=== PATIENT | male | born 1965 | race Caucasian/White ===

== ENCOUNTER 2018-08-09 11:56 | Inpatient (IN) ==
[2018-08-09 15:42] LABS: Baso # (Auto) 0.1 th/mm3 (0.0-0.2); Baso % (Auto) 0.5 % (0.0-2.0); Eos # (Auto) 0.1 th/mm3 (0.0-0.4); Eos % (Auto) 0.5 % (0.0-4.0); Hematocrit 45.6 % (39.0-51.0); Hemoglobin 15.3 gm/dL (13.0-17.0); Lymph # (Auto) 2.2 th/mm3 (1.0-4.8); Lymph % (Auto) 16.8 % (9.0-44.0); Mean Corpuscular HGB Conc 33.5 % (32.0-36.0); Mean Corpuscular Hemoglobin 30.8 pg (27.0-34.0); Mean Corpuscular Volume 91.9 fL (80.0-100.0); Mean Platelet Volume 10.6 fL (7.0-11.0); Mono # (Auto) 0.8 th/mm3 (0.0-0.9); Neut # (Auto) 9.9 th/mm3 (1.8-7.7); Neut % (Auto) 76.2 % (16.0-70.0); Platelet Count 154 th/mm3 (150-450); Red Blood Count 4.97 mil/mm3 (4.50-5.90); Red Cell Distribution Width 13.7 % (11.6-17.2); White Blood Count 13.1 th/mm3 (4.0-11.0)
--- NOTE | 2018-08-09 15:54 | US ---
EXAM DATE: 08/09/2018 3:44 PM EST AGE/SEX: 53 years / Male INDICATIONS: Right leg cellulitis. CLINICAL DATA: This is the patient's initial encounter. Patient reports that signs and symptoms have been present for 2 months and indicates a pain score of 3/10. MEDICAL/SURGICAL HISTORY: . Right leg cellulitis. None. COMPARISON: No prior exams available for comparison. TECHNIQUE: Venous ultrasound of both lower extremities was performed from the inguinal ligament to t he proximal calf. Real-time, color Doppler and spectral tracing, compression and augmentation techni ques were used. FINDINGS: Normal compression of the deep venous system from the inguinal region to the proximal calf . No echogenic clot is seen. Normal response of the venous system to augmentation and respiration. CONCLUSION: 1. No DVT identified. Electronically signed by: Moises Tobar MD 08/09/2018 3:53 PM EST
--- NOTE | 2018-08-09 16:00 | ED ---
HPI General Chief complaint: Skin/Abscess/Foreign Body Stated complaint: Abcess/Genital Complaint Time Seen by Provider: 08/09/18 15:07 Source: patient and family Mode of arrival: ambulatory Limitations: no limitations History of Present Illness HPI narrative: 53-year-old male presents to the ED for evaluation of possible bilateral foot infection. Patient reports that he has been having symptoms and swelling especially on his right leg for the past 2-3 months. Per patient is started on June when he had a blister on the tip of his right great toe. Per patient he himself burst open and took off his nail as he was having some discomfort in the area. Ever since is been having swelling and pain. Per patient his swelling has progressively gotten worse and now he has it on his left foot as well. Palpation of the right foot is the worst. He has had 8 out of 10 pain on the right foot compared to the left. Denies any urinary or bowel movement issues. Per patient he does not follow with any doctors and states to me that he has not seen a doctor for almost 25 years. Denies any fevers chills or sweats. Denies any trauma. Denies any diabetes. No other medical issues at this time. Related Data Home Medications Medication Instructions Recorded Confirmed No Known Home Medications 08/09/18 08/09/18 Allergies Allergy/AdvReac Type Severity Reaction Status Date / Time No Known Allergies Allergy Verified 08/09/18 15:47 Review of Systems ROS: all other systems reviewed are negative [facility] Social History Social History Substance History: Active Abuse Second Hand Smoke Exposure: No Smoking Status: Never smoker How Often Do You Have a Drink Containing Alcohol: Monthly or less Recent Travel in [facility] within the Last 8 Weeks: No Recent Out of Country Travel within the Last 8 Weeks: No Substance Abuse Detail Marijuana: Substance Use Status: Active Route Used Substance Abuse: Inhalation Substance Frequency: last use a few days ago Reason for Use: Get High Immunization History Tetanus Immunization: >5 Years Exam Narrative Exam Narrative: GENERAL: Well appearing but morbedly obese SKIN: Focused skin assessment warm/dry. HEAD: Atraumatic. Normocephalic. EYES: Pupils equal and round. No scleral icterus. No injection or drainage. ENT: No nasal bleeding or discharge. Mucous membranes pink and moist. Tongue is midline. No Uvula deviation. NECK: Trachea midline. No JVD. CARDIOVASCULAR: Regular rate and rhythm. No murmur appreciated. RESPIRATORY: No accessory muscle use. Clear to auscultation. Breath sounds equal bilaterally. GASTROINTESTINAL: Abdomen soft, non-tender, nondistended. Hepatic and splenic margins not palpable. MUSCULOSKELETAL: No obvious deformities. No clubbing. No cyanosis. No edema. Full range of motion of the upper and lower extremities bilaterally. 2+ pulses bilaterally. Patient does have 1+ pitting edema on the right leg compared to the left. Patient does have erythema and warmness to the touch on the dorsal aspect and anterior aspect of the right leg as well as the left leg. More noticeable in the right leg. With most of the right foot being swollen. Patient does have what appears to be ulcer of the distal aspect of the right great toe. No obvious discharge from this area but patient does have blisterlike lesions with purulence on the anterior aspect of the right tibia and fibula. Multiple wounds with drainage from serosanguineous fluid to pus. Total area is about 20 cm in length. Patient has similar blisterlike purulent lesions on the left anterior tibia and fibula but not as impressive as on the right side. NEUROLOGICAL: Awake and alert. No obvious cranial nerve deficits. Motor grossly within normal limits. Normal speech. PSYCHIATRIC: Appropriate mood and affect; insight and judgment normal. Course Initial Documented Vital Signs Temperature 98.2 F 08/09/18 12:10 Pulse Rate 141 H 08/09/18 12:10 Respiratory Rate 20 08/09/18 12:10 Blood Pressure 179/111 H 08/09/18 12:10 Pulse Oximetry 95 08/09/18 12:10 Last Documented Vital Signs Temperature 98.2 F 08/09/18 12:10 Pulse Rate 138 H 08/09/18 18:33 Respiratory Rate 20 08/09/18 18:33 Blood Pressure 163/103 H 08/09/18 18:33 Pulse Oximetry 96 08/09/18 18:33 Medical Decision Making MICAELA Attestation MICAELA supervised visit: Yes Attestation: I, Dr. Mckay, have reviewed the advance practice practitioner's documentation and am in agreement, met with the patient face to face, made the diagnosis, and the medical decision making was done by me. *My assessment and Findings: Bilateral lower extremity cellulitis MDM Narrative Medical decision making narrative: 53-year-old male that presents to the ED for evaluation of infection to his right foot. Patient was properly examined and was found to have signs and symptoms very concerning for significant infection. Labs and imaging were ordered. Labs and imaging showed elevated WBCs. Case discussed with my attending Dr Mckay who evaluated the patient with myself and agrees with admission plan. Discussed case with [facility] Doctor who agrees to admission. Medical Screen Exam Complete: Yes Emergency Medical Condition: Yes Differential Diagnosis Differential Diagnosis: Cellulitis versus abscess versus sepsis Medical Records Medical records reviewed: Yes I reviewed the patient's medical records. Lab Data Lab results reviewed: Yes I reviewed the patient's lab results. Result diagrams: 08/09/18 15:30 08/09/18 15:30 Lab Results 08/09/18 08/09/18 08/09/18 Range/Units 15:30 15:30 15:30 WBC 13.1 H (4.0-11.0) th/mm3 RBC 4.97 (4.50-5.90) mil/mm3 Hgb 15.3 (13.0-17.0) gm/dL Hct 45.6 (39.0-51.0) % MCV 91.9 (80.0-100.0) fL MCH 30.8 (27.0-34.0) pg MCHC 33.5 (32.0-36.0) % RDW 13.7 (11.6-17.2) % Plt Count 154 (150-450) th/mm3 MPV 10.6 (7.0-11.0) fL Neut % (Auto) 76.2 H (16.0-70.0) % Lymph % (Auto) 16.8 (9.0-44.0) % [place] % (Auto) 6.0 (0.0-8.0) % Eos % (Auto) 0.5 (0.0-4.0) % Baso % (Auto) 0.5 (0.0-2.0) % Neut # (Auto) 9.9 H (1.8-7.7) th/mm3 Lymph # (Auto) 2.2 (1.0-4.8) th/mm3 [place] # (Auto) 0.8 (0.0-0.9) th/mm3 Eos # (Auto) 0.1 (0.0-0.4) th/mm3 Baso # (Auto) 0.1 (0.0-0.2) th/mm3 WBC Differential . Differential Comment Auto diff final Sodium 140 (136-145) meq/L Potassium 4.1 (3.5-5.1) meq/L Chloride 107 (98-107) meq/L Carbon Dioxide 25.6 (21.0-32.0) meq/L Anion Gap 7 (5-15) meq/L BUN 12 (7-18) mg/dL Creatinine 0.99 (0.60-1.30) mg/dL Estimated GFR 79 L (>89) mL/min Random Glucose 127 H (74-106) mg/dL Lactic Acid 1.8 (0.4-2.0) mmol/L Calcium 8.5 (8.5-10.1) mg/dL Total Bilirubin 1.1 H (0.2-1.0) mg/dL AST 28 (15-37) U/L ALT 28 (12-78) U/L Alkaline Phosphatase 83 (45-117) U/L Total Protein 7.2 (6.4-8.2) g/dL Albumin 3.4 (3.4-5.0) g/dL TSH 1.650 (0.358-3.740) uIU/mL 08/09/18 Range/Units 15:30 WBC (4.0-11.0) th/mm3 RBC (4.50-5.90) mil/mm3 Hgb (13.0-17.0) gm/dL Hct (39.0-51.0) % MCV (80.0-100.0) fL MCH (27.0-34.0) pg MCHC (32.0-36.0) % RDW (11.6-17.2) % Plt Count (150-450) th/mm3 MPV (7.0-11.0) fL Neut % (Auto) (16.0-70.0) % Lymph % (Auto) (9.0-44.0) % [place] % (Auto) (0.0-8.0) % Eos % (Auto) (0.0-4.0) % Baso % (Auto) (0.0-2.0) % Neut # (Auto) (1.8-7.7) th/mm3 Lymph # (Auto) (1.0-4.8) th/mm3 [place] # (Auto) (0.0-0.9) th/mm3 Eos # (Auto) (0.0-0.4) th/mm3 Baso # (Auto) (0.0-0.2) th/mm3 WBC Differential Differential Comment Sodium (136-145) meq/L Potassium (3.5-5.1) meq/L Chloride (98-107) meq/L Carbon Dioxide (21.0-32.0) meq/L Anion Gap (5-15) meq/L BUN (7-18) mg/dL Creatinine (0.60-1.30) mg/dL Estimated GFR (>89) mL/min Random Glucose (74-106) mg/dL Lactic Acid (0.4-2.0) mmol/L Calcium (8.5-10.1) mg/dL Total Bilirubin (0.2-1.0) mg/dL AST (15-37) U/L ALT (12-78) U/L Alkaline Phosphatase (45-117) U/L Total Protein (6.4-8.2) g/dL Albumin (3.4-5.0) g/dL TSH Cancelled (0.358-3.740) uIU/mL Imaging Data Attestation: I personally reviewed and interpreted this imaging study as follows : Radiologist's impression: Foot X-Ray 08/09/18 15:19 CONCLUSION: 1. Achilles and plantar calcaneal spurring. 2. No acute fracture or dislocation. 3. Mild arthritic changes involving the ankle and midfoot. Venous Doppler Study 08/09/18 15:20 CONCLUSION: 1. No DVT identified. Discharge Plan Discharge Disposition Patient Disposition: 30 Still Patient Discharge Details Diagnosis: Cellulitis Physicians Team ED Provider: Matt Mckay ED Midlevel Provider: Codey Montaño Primary Care Provider: Primary Care Adwoa Young Attending Provider: Krystian Chadwick Status ED Status: Admitted Observation Patient
[2018-08-09 16:06] LABS: Alkaline Phosphatase 83 U/L (45-117); Total Protein 7.2 g/dL (6.4-8.2)
[2018-08-09 16:13] LABS: Alanine Aminotransferase 28 U/L (12-78); Albumin 3.4 g/dL (3.4-5.0); Anion Gap 7 meq/L (5-15); Aspartate Aminotransferase 28 U/L (15-37); Blood Urea Nitrogen 12 mg/dL (7-18); Calcium 8.5 mg/dL (8.5-10.1); Carbon Dioxide 25.6 meq/L (21.0-32.0); Chloride 107 meq/L (98-107); Glomerular Filtration Rate 79 mL/min (>89); Glucose,Random 127 mg/dL (74-106); Potassium 4.1 meq/L (3.5-5.1); Sodium 140 meq/L (136-145)
--- NOTE | 2018-08-09 16:33 | XR ---
EXAM DATE: 08/09/2018 4:30 PM EST AGE/SEX: 53 years / Male INDICATIONS: Right foot pain and swelling. CLINICAL DATA: This is the patient's initial encounter. Patient reports that signs and symptoms have been present for 2 days and indicates a pain score of 10/10. MEDICAL/SURGICAL HISTORY: None. None. COMPARISON: No prior exams available for comparison. FINDINGS: Achilles and plantar calcaneal spurring are noted. There is no acute fracture or dislocation of the r ight foot. Mild arthritic changes are noted involving the ankle and midfoot. CONCLUSION: 1. Achilles and plantar calcaneal spurring. 2. No acute fracture or dislocation. 3. Mild arthritic changes involving the ankle and midfoot. Electronically signed by: Casey Bowser MD 08/09/2018 4:32 PM EST
[2018-08-09] MEDS ORDERED: Piperacil/Tazo 4.5 GM Premix 4.5 GM/100 ML BAG IV.SIG ONE (17:08)
[2018-08-09] MEDS ORDERED: Vancomycin Inj 1,000 MG in Sodium Chlor 0.9% Inj 250 ML IV.SIG ONE ×2 (17:08→22:00)
[2018-08-09] MEDS ORDERED: Bisacodyl 10 MG Supp RECTAL PRN (18:24)
[2018-08-09] MEDS ORDERED: Acetaminophen 325 MG Tablet PO PRN (18:24)
--- NOTE | 2018-08-09 18:33 | P.HPIM ---
History of Present Illness Primary Care Physician: No Primary Care Physician History of Present Illness: 53-yo m with no previous medical hx, has not had any doctor for ~25 years. He presented to ER with worsening swelling and redness of RLE. Reports he had a blister on the tip rt great toe a month ago which he lanced, and he removed the nail as well. since then he has been having pain and swelling of rt leg. He developed another blister on dorsum of rt foot which he lanced. 2 weeks ago he noted small pimple like lesions on his rt leg and these progressively increased to involve his thigh. His rt leg redness/swelling worsened. He denies fevers/chills. He took Cephalexin pills from his mother a few days ago but did not help. ROS significant for painless scrotal swelling which he says happened a few months back after falling off his bed. rest of ROS is negative. On presentation to ER, patient noted to be hypertensive, labs-mild leucocytosis 13, glucose mildly elevated. Xray rt foot unremarkable. dopplers negative for DVT. Patient received Vanc/Zosyn. Review of Systems Review of Systems: all other systems reviewed are negative [facility] Social History Social History Substance History: Active Abuse Second Hand Smoke Exposure: No Smoking Status: Never smoker How Often Do You Have a Drink Containing Alcohol: Monthly or less Recent Travel in [facility] within the Last 8 Weeks: No Recent Out of Country Travel within the Last 8 Weeks: No Substance Abuse Detail Marijuana: Substance Use Status: Active Route Used Substance Abuse: Inhalation Substance Frequency: last use a few days ago Reason for Use: Get High Immunization History Tetanus Immunization: >5 Years Medications and Allergies Allergies Allergy/AdvReac Type Severity Reaction Status Date / Time No Known Allergies Allergy Verified 08/09/18 15:47 Home Medications Medication Instructions Recorded Confirmed Type No Known Home Medications 08/09/18 08/09/18 History Active Medications: Active Medications Acetaminophen (Tylenol) 650 mg PO Q4H PRN PRN Reason: Temp > 100.4 Al Hydroxide/Mg Hydroxide (Milk Of Magnesia Liq) 30 ml PO Q12H PRN PRN Reason: Mild Constipation Bisacodyl (Dulcolax Supp) 10 mg RECTAL DAILY PRN PRN Reason: SEVERE CONSITIPATION Lactulose (Lactulose Liq) 30 ml PO DAILY PRN PRN Reason: SEVERE CONSITIPATION Ondansetron HCl (Zofran Inj) 4 mg IV.PUSH Q6H PRN PRN Reason: NAUSEA OR VOMITING Senna/Docusate Sodium (Magy-Colace) 1 tab PO BID VICKI Sennosides (Senokot) 17.2 mg PO Q12H PRN PRN Reason: Moderate Constipation Sodium Chloride (Ns Flush) 2 ml IV.FLUSH PRN PRN PRN Reason: FLUSH AFTER USING IV ACCESS Physical Exam Vital signs: Last Vital Signs Temp 98.2 F 08/09/18 12:10 Pulse 136 H 08/09/18 15:52 Resp 19 08/09/18 15:52 BP 192/107 H 08/09/18 15:52 Pulse Ox 95 08/09/18 15:52 Intake & Output 08/07/18 08/08/18 08/09/18 08/10/18 06:59 06:59 06:59 06:59 Intake Total 100 / 100 Balance 100 / 100 Weight 136.078 kg Narrative: GENERAL:obese middle aged man, in no acute distress. HEENT: not pale,anicteric CARDIOVASCULAR: Regular tachycardia,regular rhythm without murmurs, gallops, or rubs. RESPIRATORY: Clear to auscultation. Breath sounds equal bilaterally. No wheezes , rales, or rhonchi. GASTROINTESTINAL: Abdomen soft, non-tender, nondistended. Normal active bowel sounds GUN: swollen scrotum MUSCULOSKELETAL: RLE with 1 + edema, erythematous, ulcer at tip of rt hallux~ 2cm, with no discharge. Multiple discharging punctate wounds on his right dobbins and thigh. erythematous rt leg anteriorly. few punctate wounds on left leg. NEURO: Alert & Oriented x4 to person, place, time, situation. Moves all ext x4 Results Labs CBC & Chem 7: 08/09/18 15:30 08/09/18 15:30 Imaging Impressions Foot X-Ray 08/09/18 15:19 CONCLUSION: 1. Achilles and plantar calcaneal spurring. 2. No acute fracture or dislocation. 3. Mild arthritic changes involving the ankle and midfoot. Venous Doppler Study 08/09/18 15:20 CONCLUSION: 1. No DVT identified. Caprini VTE Risk Assessment Caprini VTE Risk Assessment: No/Low Risk (score <= 1) Caprini Risk Assessment Model: Point Value = 1 Point Value = 2 Point Value = 3 Point Value = 5 Age 41-60 Minor surgery BMI > 25 kg/m2 Swollen legs Varicose veins or History of unexplained or recurrent spontaneous Oral contraceptives or hormone replacement Sepsis (< 1 month) Serious lung disease, including pneumonia (< 1 month) Abnormal pulmonary function Acute myocardial infarction Congestive heart failure (< 1 month) History of inflammatory bowel disease Medical patient at bed rest Age 61-74 Arthroscopic surgery Major open surgery (> 45 min) Laparoscopic surgery (> 45 min) Malignancy Confined to bed (> 72 hours) Immobilizing plaster cast Central venous access Age >= 75 History of VTE Family history of VTE Factor V Leiden Prothrombin [id number] Lupus anticoagulant Anticardiolipin antibodies Elevated serum homocysteine Heparin-induced thrombocytopenia Other congenital or acquired thrombophilia Stroke (< 1 month) Elective arthroplasty Hip, pelvis, or leg fracture Acute spinal cord injury (< 1 month) Prophylaxis Regimen: Total Risk Factor Score Risk Level Prophylaxis Regimen 0-1 Low Early ambulation 2 Moderate Order ONE of the following: *Sequential Compression Device (SCD) *Heparin 5000 units SQ BID 3-4 Higher Order ONE of the following medications: *Heparin 5000 units SQ TID *Enoxaparin/Lovenox 40 mg SQ daily (WT < 150 kg, CrCl > 30 mL/min) *Enoxaparin/Lovenox 30 mg SQ daily (WT < 150 kg, CrCl > 10-29 mL/min) *Enoxaparin/Lovenox 30 mg SQ BID (WT < 150 kg, CrCl > 30 mL/min) AND/OR *Sequential Compression Device (SCD) 5 or more Highest Order ONE of the following medications: *Heparin 5000 units SQ TID (Preferred with Epidurals) *Enoxaparin/Lovenox 40 mg SQ daily (WT < 150 kg, CrCl > 30 mL/min) *Enoxaparin/Lovenox 30 mg SQ daily (WT < 150 kg, CrCl > 10-29 mL/min) *Enoxaparin/Lovenox 30 mg SQ BID (WT < 150 kg, CrCl > 30 mL/min) AND *Sequential Compression Device (SCD) Assessment and Plan Plan 53 yo m with no previous medical history who presented with swelling/redness of his right leg Cellulitis of right leg-- He received IV Vanc/Zosyn in ER, keep on IV Vanc only for now, can narrow down. follow up blood cultures. elevate RLE. HTN: seems like new onset, unclear how long he has been hypertensive. He is hypertensive/tachycardic start on HCTZ and Metoprolol check ECHO,TSH keep on cardiac diet. Mild hyperglycemia--pre diabetic range. check A1C. scrotal swelling--likely hydrocele. check scrotal ultrasound. dvt ppx--ambulate.
--- NOTE | 2018-08-09 20:20 | US ---
EXAM DATE: 08/09/2018 8:15 PM EST AGE/SEX: 53 years / Male INDICATIONS: Scrotal swelling. CLINICAL DATA: This is the patient's initial encounter. Patient reports that signs and symptoms have been present for 2 weeks and indicates a pain score of 0/10. MEDICAL/SURGICAL HISTORY: None. None. COMPARISON: No prior exams available for comparison. MEASUREMENTS: Right Testicle:__3.6 x 3.4 x 4.4 cm Left Testicle:__2.7 x 3.4 x 4.5 cm FINDINGS: RIGHT: Testicle: Homogeneous echotexture without intra or extratesticular mass. Blood flow is symmetric and within normal limits. Epididymis: Within normal limits. Hydrocele: Small hydrocele present. Varicocele: No evidence of varicocele. LEFT: Testicle: Homogeneous echotexture without intra or extratesticular mass. Blood flow is symmetric and within normal limits. Epididymis: Within normal limits. Hydrocele: Small hydrocele present. Varicocele: No evidence of varicocele. Scrotum: Diffuse thickening of scrotal skin. CONCLUSION: 1. Diffuse extensive scrotal wall thickening, likely infectious. 2. Normal-appearing testicles. 3. Small bilateral hydroceles Electronically signed by: Ko Nix MD 08/09/2018 8:19 PM EST
[2018-08-09] MEDS ORDERED: Metoprolol Tartrate 25 MG Tablet PO SCH (21:00)
[2018-08-09] MEDS ORDERED: Vancomycin Consult Pharmacy OTHER PRN ×2 (21:04→21:05)
[2018-08-09] MEDS: hydroCHLOROthiazide 25 MG Tablet PO SCH (22:05)
[2018-08-09] MEDS: Metoprolol Tartrate 25 MG Tablet PO SCH (22:06)
[2018-08-09] MEDS: Senna/Docusate Sodium 8.6/50 MG Tablet PO SCH (22:10)
[2018-08-10 06:29] LABS: Amphetamine Screen,Urine Neg (Neg); Barbiturate Screen,Urine Neg (Neg); Cannabinoid Screen,Urine Pos (Neg); Cocaine Screen,Urine Neg (Neg)
[2018-08-10 06:32] LABS: Opiate Screen,Urine Neg (Neg)
[2018-08-10] MEDS: Senna/Docusate Sodium 8.6/50 MG Tablet PO SCH ×2 (10:05→21:34)
[2018-08-10] MEDS: hydroCHLOROthiazide 25 MG Tablet PO SCH (10:05)
[2018-08-10] MEDS: Metoprolol Tartrate 25 MG Tablet PO SCH ×2 (10:06→21:31)
[2018-08-10] MEDS: Vancomycin Inj 1,500 MG in Sodium Chlor 0.9% Inj 500 ML IV.SIG SCH ×2 (11:05→21:33)
--- NOTE | 2018-08-10 11:12 | P.PN ---
Subjective Interval history: Follow up for sepsis with cellulitis. The patient reports slight improvement of his RLE cellulitis with decreased edema and weeping, however still very erythematous with scattered pustules. He has few pustules on the left anterior dobbins with surrounding erythema. He also reports continued diffuse scrotal edema and pain. He states he injured his scrotum a week ago and it has been swollen every since. He also reports dysuria, nocturia, and frequent urination with incomplete voiding. Denies any other medical complaints at this time. Physical Exam Vital signs: Vital Signs 08/09/18 12:10 08/09/18 14:53 08/09/18 15:50 Temperature 98.2 F Pulse Rate 141 H 138 H 136 H Respiratory Rate 20 16 Blood Pressure 179/111 H 164/124 H Pulse Oximetry 95 96 95 08/09/18 15:52 08/09/18 18:33 08/10/18 00:00 Temperature 98.6 F Pulse Rate 136 H 138 H 93 H Respiratory Rate 19 20 18 Blood Pressure 192/107 H 163/103 H 106/55 L Pulse Oximetry 95 96 93 L 08/10/18 03:52 08/10/18 08:00 Temperature 98.9 F 97.4 F L Pulse Rate 82 89 Respiratory Rate 19 Blood Pressure 159/92 H 114/77 Pulse Oximetry 96 98 Intake & Output 08/09/18 08/10/18 08/10/18 18:59 06:59 18:59 Intake Total 100 / 100 500 / 500 Balance 100 / 100 500 / 500 Weight 136.078 kg 140.614 kg Intake: IV 100 / 100 500 / 500 Zosyn 4.5 GM Premix 4.5 gm In 100 / 100 100 ml @ 200 mls/hr IV.SIG ONCE ONE Rx#:[id number] Vancomycin Inj 1,000 MG In NS 500 / 500 Inj 250 ML @ 250 mls/hr IV.SIG ONCE ONE Rx#:[id number] Other: Date of Last Bowel Movement 08/09/18 Weight On Admission 140.614 kg Narrative: GENERAL: Well-nourished, well-developed obese middle aged male patient in [facility]. SKIN: Warm and dry. See lower extremities below. HEENT: Normocephalic. Atraumatic. Pupils equal and round. Mucous membranes pink and moist. CARDIOVASCULAR: Regular rate and rhythm. No murmur appreciated. RESPIRATORY: No accessory muscle use. Clear to auscultation. Breath sounds equal bilaterally. GASTROINTESTINAL: Abdomen soft, non-tender, nondistended. Normoactive bowel sounds x4. GENITOURINARY: Diffusely edematous and mildly erythematous scrotum, no open wounds, tender to palpation. MUSCULOSKELETAL: No obvious deformities. RLE with diffuse erythema, 2+ edema, scattered pustules, some open and draining, with 3cm ulcer at right hallux and smaller 1cm ulcer at lateral 5th toe. NEUROLOGICAL: Awake and alert. No obvious cranial nerve deficits. Moving all extremities spontaneously. Normal speech. PSYCHIATRIC: Appropriate mood and affect; insight and judgment normal. Results - Labs CBC & Chem 7: 08/09/18 15:30 08/09/18 15:30 Laboratory Results - last 24 hr 08/09/18 08/09/18 08/09/18 15:30 15:30 15:30 WBC 13.1 H RBC 4.97 Hgb 15.3 Hct 45.6 MCV 91.9 MCH 30.8 MCHC 33.5 RDW 13.7 Plt Count 154 MPV 10.6 Neut % (Auto) 76.2 H Lymph % (Auto) 16.8 Harney % (Auto) 6.0 Eos % (Auto) 0.5 Baso % (Auto) 0.5 Neut # (Auto) 9.9 H Lymph # (Auto) 2.2 Harney # (Auto) 0.8 Eos # (Auto) 0.1 Baso # (Auto) 0.1 WBC Differential . Differential Comment Auto diff final Sodium 140 Potassium 4.1 Chloride 107 Carbon Dioxide 25.6 Anion Gap 7 BUN 12 Creatinine 0.99 Estimated GFR 79 L Random Glucose 127 H Lactic Acid 1.8 Calcium 8.5 Total Bilirubin 1.1 H AST 28 ALT 28 Alkaline Phosphatase 83 Total Protein 7.2 Albumin 3.4 TSH 1.650 Urine Opiates Screen Ur Barbiturates Screen Ur Amphetamines Screen U Benzodiazepines Scrn Urine Cocaine Screen U Cannabinoids Screen 08/09/18 08/10/18 15:30 06:00 WBC RBC Hgb Hct MCV MCH MCHC RDW Plt Count MPV Neut % (Auto) Lymph % (Auto) Harney % (Auto) Eos % (Auto) Baso % (Auto) Neut # (Auto) Lymph # (Auto) Harney # (Auto) Eos # (Auto) Baso # (Auto) WBC Differential Differential Comment Sodium Potassium Chloride Carbon Dioxide Anion Gap BUN Creatinine Estimated GFR Random Glucose Lactic Acid Calcium Total Bilirubin AST ALT Alkaline Phosphatase Total Protein Albumin TSH Cancelled Urine Opiates Screen Neg Ur Barbiturates Screen Neg Ur Amphetamines Screen Neg U Benzodiazepines Scrn Neg Urine Cocaine Screen Neg U Cannabinoids Screen Pos H Microbiology 08/09/18 15:30 Blood - Peripheral Aerobic Blood Culture - Preliminary No growth in 1 day 08/09/18 15:30 Blood - Peripheral Anaerobic Blood Culture - Preliminary No growth in 1 day 08/09/18 15:35 Blood - Peripheral Aerobic Blood Culture - Preliminary No growth in 1 day 08/09/18 15:35 Blood - Peripheral Anaerobic Blood Culture - Preliminary No growth in 1 day 08/09/18 15:30 Abscess - Leg Gram Stain - Final - Imaging Impressions Foot X-Ray 08/09/18 15:19 CONCLUSION: 1. Achilles and plantar calcaneal spurring. 2. No acute fracture or dislocation. 3. Mild arthritic changes involving the ankle and midfoot. Venous Doppler Study 08/09/18 15:20 CONCLUSION: 1. No DVT identified. Scrotum Ultrasound 08/09/18 17:20 CONCLUSION: 1. Diffuse extensive scrotal wall thickening, likely infectious. 2. Normal-appearing testicles. 3. Small bilateral hydroceles Assessment and Plan - Plan 53-year-old male with no significant past medical history although has not seen any physician in 25 years, presents with a 2-week history of right lower extremity blisters and cellulitis. 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 Sepsis with Bilateral lower extremity cellulitis and right hallux ulcer: Right worse than left. Meets sepsis criteria with leukocytosis WBC 13.1K, tachycardia HR 141, source-cellulitis. -Foot xray with no acute fracture/dislocation, mild arthritic changes of ankle/midfoot; Achilles and plantar calcaneal spurring -Doppler U/S negative for DVT -Wound culture collected, preliminary with staph aureus -Blood cultures with NGTD -Continue antibiotics with IV Vanco with pharmacy consult -Elevate lower extremities -Consult wound care Scrotal Edema, possible Cellulitis: acute, patient reports recent injury to scrotum with subsequent swelling/pain/dysuria. -Scrotum U/S with diffuse extensive scrotal wall thickening, likely infectious; normal testicles, small bilateral hydroceles -started on diuretic with HCTZ (also for BP control) -Already on IV vanco as above -Check urinalysis -Consult urology Hypertension: acute, no prior diagnosis of high blood pressure -started on HCTZ and metoprolol per admitting physician, will continue -clonidine prn -monitor BP, adjust antihypertensives as needed Elevated Blood Glucose: BG 127, unknown if fasting BG -check HgbA1c DVT Prophylaxis: Heparin sq Discharge Planning: Admit to inpatient. Likely needs additional 2-3 days fo IV antibiotics. Await urology consult.
--- NOTE | 2018-08-10 18:35 | ECHRPT ---
Indication: HTN heart disease CONCLUSIONS Normal left ventricular size. Mild concentric left ventricular hypertrophy. The left ventricular systolic function is severely reduced with an estimated ejection fraction in th e range of 25-30%. There is diffuse global hypokinesis with distinct regional wall motion abnormalities. There is akine sis of the inferior wall. The right ventricle is mildly dilated. The right ventricular systoilc function is mildly decreased. The left atrial size is jamv-yi-hkiayaqrwb dilated. Zbrm-ez-gjbovwla mitral valve regurgitation. Aortic valve sclerosis with calcification versus possible vegetation at the base of the left coronar y cusp the aortic valve. CHRISTIAN may be considered for further evaluation if clinically indicated. The estimated pulmonary arterial pressure is 30 mmHg. BP: / HR: Rhythm: MEASUREMENTS (Male / Female) Normal Values Technical Quality: 2D ECHO LV Diastolic Diameter PLAX 6.3 cm 4.2 - 5.9 / 3.9 - 5.3 cm LV Systolic Diameter PLAX 5.7 cm IVS Diastolic Thickness 0.8 cm 0.6 - 1.0 / 0.6 - 0.9 cm LVPW Diastolic Thickness 1.1 cm 0.6 - 1.0 / 0.6 - 0.9 cm LV Relative Wall Thickness 0.3 RV Internal Dim ED PLAX 3.8 cm LVOT Diameter 2.5 cm Aortic Root Diameter 3.1 cm LA Systolic Diameter LX 5.7 cm 3.0 - 4.0 / 2.7 - 3.8 cm LV Ejection Fraction MOD BP 39.1 % >= 55 % LV Ejection Fraction MOD 4C 47.1 % LV Ejection Fraction 4C AL 46.9 % LV Ejection Fraction MOD 2C 27.1 % LV Ejection Fraction 2C AL 26.0 % DOPPLER AV Peak Velocity 118.0 cm/s AV Peak Gradient 5.6 mmHg LVOT Peak Velocity 91.8 cm/s LVOT Peak Gradient 3.4 mmHg AV Area Cont Eq pk 3.7 cm Mitral E Point Velocity 114.0 cm/s LV E' Lateral Velocity 9.0 cm/s Mitral E to LV E' Lateral Ratio 12.7 LV E' Septal Velocity 4.6 cm/s Mitral E to LV E' Septal Ratio 24.9 TR Peak Velocity 222.0 cm/s TR Peak Gradient 19.7 mmHg Right Atrial Pressure 10.0 mmHg Pulmonary Artery Systolic Pressu 29.7 mmHg Right Ventricular Systolic Press 29.7 mmHg PV Peak Velocity 106.0 cm/s PV Peak Gradient 4.5 mmHg FINDINGS LEFT VENTRICLE Normal left ventricular size. Mild concentric left ventricular hypertrophy. The left ventricular systolic function is severely reduced with an estimated ejection fraction in th e range of 25-30%. There is diffuse global hypokinesis with distinct regional wall motion abnormalities. There is akine sis of the inferior wall. RIGHT VENTRICLE The right ventricle is mildly dilated. The right ventricular systoilc function is mildly decreased. LEFT ATRIUM The left atrial size is zrpi-zd-prphyglzsp dilated. RIGHT ATRIUM The right atrial size is normal. ATRIAL SEPTUM Normal atrial septal thickness without atrial level shunting by limited color doppler interrogation. AORTA The aortic root and proximal ascending aorta are normal in size on limited imaging. MITRAL VALVE Dixv-ku-cjilfzct mitral valve regurgitation. AORTIC VALVE Trileaflet aortic valve. No aortic valve stenosis. Mild aortic valve regurgitation. Aortic valve sclerosis with calcification versus possible vegetation at the base of the left coronar y cusp the aortic valve. TRICUSPID VALVE The estimated pulmonary arterial pressure is 30 mmHg. PULMONARY VALVE The pulmonary valve is not well visualized. VESSELS The inferior vena cava is dilated. There is greater than 50% respiratory change in dimension of the inferior vena cava (normal). PERICARDIUM No pericardial effusion. Dheeraj Mayberry (Electronically Signed) Final Date:10 August 2018 18:34
[2018-08-10 19:08] LABS: Bilirubin,Urine Negative (Negative); Clarity,Urine Hazy (Clear); Color,Urine Yellow (Yellw/Straw); Glucose,Urine (UA) Negative (Negative); Hyaline Casts,Urine 3 /lpf (0-3); Leukocyte Esterase,Urine Negative (Negative); Mucus,Urine Few /lpf (Occasional); Nitrite,Urine Negative (Negative); Specific Gravity,Urine 1.019 (1.002-1.035); Squamous Epithelial Cell,Urine <1 /hpf (0-5)
[2018-08-10] MEDS: Heparin - SQ 10,000 UNITS/ML Vial SQ SCH (21:32)
[2018-08-11] MEDS: Heparin - SQ 10,000 UNITS/ML Vial SQ SCH ×3 (06:04→22:10)
[2018-08-11] MEDS ORDERED: Furosemide 20 MG Tablet PO SCH (09:00)
--- NOTE | 2018-08-11 09:13 | P.CONCA ---
History of Present Illness Service: cardiology Consult date: 08/11/18 Reason for Consult: new CHF, EF 25%, CHRISTIAN requested Primary Care Provider: No Primary Care Physician Chief Complaint: R leg infection History of Present Illness: 53 yo morbidly obese WM with no prior cardiac history who presents with R leg swelling and skin infection x several weeks. 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 Over the course of several weeks his foot became increasingly irritated, swollen with blisters extending proximally up to his knee. In the ED he was found to have cellulitis and sepsis ; echocardiogram reveals reduced EF 25% with possible vegetation of aortic valve. We have been consulted to consider CHRISTIAN. Patient denies chest pain,sob or palpitations. BP elevated initially with SBP 179, which has improved with addition of lisinopril 5mg and metoprolol 25mg BID and lasix 20mg. Review of Systems All other systems reviewed negative except as stated in HPI PMFSH - History History Provided By: Patient - Tobacco History Second Hand Smoke Exposure: No Smoking Status: Never smoker - Alcohol History How Often Do You Have a Drink Containing Alcohol: Monthly or less - Substance Use History Substance History: Active Abuse - Substance Use Type Marijuana Status: Active Route Used: Inhalation Frequency: last use a few days ago Reason for Use: Get High - Travel History Recent Travel in the [place] Within the Last 8 Weeks: No Recent Travel Out of the Country Within the Last 8 Weeks: No - Immunization History Tetanus Immunization: >5 Years Medications and Allergies Active Medications: Active Medications Acetaminophen (Tylenol) 650 mg PO Q4H PRN PRN Reason: headache/fever/pain1-5 Hydrocodone Bitart/Acetaminophen ([place] 5/325) 1 tab PO Q6H PRN PRN Reason: pain 6 to 10 Al Hydroxide/Mg Hydroxide (Milk Of Magnesia Liq) 30 ml PO Q12H PRN PRN Reason: Mild Constipation Bisacodyl (Dulcolax Supp) 10 mg RECTAL DAILY PRN PRN Reason: SEVERE CONSITIPATION Clonidine HCl (Catapres) 0.1 mg PO Q6H PRN PRN Reason: HYPERTENSION Furosemide (Lasix) 20 mg PO BID@0900,1800 VICKI Heparin Sodium (Porcine) (Heparin Inj) 5,000 units SQ Q8HR [facility] Last Admin: 08/11/18 06:04 Dose: 5,000 units Vancomycin HCl 1,500 mg/ (Sodium Chloride) 515 mls @ 250 mls/hr IV.SIG Q12H [facility] Last Infusion: 08/10/18 23:40 Dose: Infused Lactulose (Lactulose Liq) 30 ml PO DAILY PRN PRN Reason: SEVERE CONSITIPATION Lisinopril (Prinivil) 5 mg PO DAILY [facility] Metoprolol Tartrate (Lopressor) 25 mg PO BID [facility] Last Admin: 08/10/18 21:31 Dose: 25 mg Miscellaneous Information ([facility] Ordered Lab Info) 0 each OTHER ONCE ONE Stop: 08/11/18 09:46 Ondansetron HCl (Zofran Inj) 4 mg IV.PUSH Q6H PRN PRN Reason: NAUSEA OR VOMITING Pharmacy Profile Note (Vancomycin Consult Pharmacy) 1 each OTHER UNSCH PRN PRN Reason: Pharmacy to dose Senna/Docusate Sodium (Magy-Colace) 1 tab PO BID [facility] Last Admin: 08/10/18 21:34 Dose: Not Given Sennosides (Senokot) 17.2 mg PO Q12H PRN PRN Reason: Moderate Constipation Sodium Chloride (Ns Flush) 2 ml IV.FLUSH PRN PRN PRN Reason: FLUSH AFTER USING IV ACCESS Allergies Allergy/AdvReac Type Severity Reaction Status Date / Time No Known Allergies Allergy Verified 08/09/18 15:47 Home Medications Medication Instructions Recorded Confirmed Type No Known Home Medications 08/09/18 08/09/18 History Exam Vital signs: Vital Signs 08/10/18 12:00 08/10/18 20:00 08/10/18 23:56 Temperature 97.9 F 97.5 F L Pulse Rate 105 H 102 H 110 H Respiratory Rate 18 20 20 Blood Pressure 128/88 113/69 93/58 L Pulse Oximetry 95 95 96 08/11/18 04:00 08/11/18 08:15 Temperature 98.7 F Pulse Rate 94 H 95 H Respiratory Rate 20 20 Blood Pressure 120/85 123/79 Pulse Oximetry 94 L 96 Intake & Output 08/10/18 08/11/18 08/11/18 18:59 06:59 18:59 Intake Total 515 / 515 515 / 515 Balance 515 / 515 515 / 515 Intake: IV 515 / 515 515 / 515 Vancomycin Inj 1,500 MG In NS 515 / 515 515 / 515 Inj 500 ML @ 250 mls/hr IV.SIG Q12H [facility] Rx#:[id number] Other: Date of Last Bowel Movement 08/10/18 Narrative: GENERAL: obese male SKIN: Warm and dry. HEAD: Normocephalic. EYES: No scleral icterus. No injection or drainage. NECK: Supple, trachea midline. No JVD or lymphadenopathy. CARDIOVASCULAR: Regular rate and rhythm without murmurs, gallops, or rubs. RESPIRATORY: Breath sounds equal bilaterally. No accessory muscle use. GASTROINTESTINAL: Abdomen soft, non-tender, nondistended. MUSCULOSKELETAL: R lower leg edematous with scattered erythematous pustules. . Results 08/09/18 15:30 08/09/18 15:30 Cardiac Enzymes 08/09/18 Range/Units 15:30 AST 28 (15-37) U/L CBC 08/09/18 Range/Units 15:30 WBC 13.1 H (4.0-11.0) th/mm3 RBC 4.97 (4.50-5.90) mil/mm3 Hgb 15.3 (13.0-17.0) gm/dL Hct 45.6 (39.0-51.0) % Plt Count 154 (150-450) th/mm3 Neut # (Auto) 9.9 H (1.8-7.7) th/mm3 Lymph # (Auto) 2.2 (1.0-4.8) th/mm3 Carter # (Auto) 0.8 (0.0-0.9) th/mm3 Eos # (Auto) 0.1 (0.0-0.4) th/mm3 Baso # (Auto) 0.1 (0.0-0.2) th/mm3 Comprehensive Metabolic Panel 08/09/18 Range/Units 15:30 Sodium 140 (136-145) meq/L Potassium 4.1 (3.5-5.1) meq/L Chloride 107 (98-107) meq/L Carbon Dioxide 25.6 (21.0-32.0) meq/L BUN 12 (7-18) mg/dL Creatinine 0.99 (0.60-1.30) mg/dL Calcium 8.5 (8.5-10.1) mg/dL AST 28 (15-37) U/L ALT 28 (12-78) U/L Alkaline Phosphatase 83 (45-117) U/L Total Protein 7.2 (6.4-8.2) g/dL Albumin 3.4 (3.4-5.0) g/dL Intake and Output 08/10/18 08/11/18 08/11/18 22:59 06:59 14:59 Intake Total 515 / 515 Balance 515 / 515 Intake: IV 515 / 515 Vancomycin Inj 1,500 MG In NS 515 / 515 Inj 500 ML @ 250 mls/hr IV.SIG Q12H [facility]ICK[facility] Rx#:[id number] Other: Date of Last Bowel Movement 08/10/18 - Imaging and Cardiology Imaging: Impressions Foot X-Ray 08/09/18 15:19 CONCLUSION: 1. Achilles and plantar calcaneal spurring. 2. No acute fracture or dislocation. 3. Mild arthritic changes involving the ankle and midfoot. Venous Doppler Study 08/09/18 15:20 CONCLUSION: 1. No DVT identified. Scrotum Ultrasound 08/09/18 17:20 CONCLUSION: 1. Diffuse extensive scrotal wall thickening, likely infectious. 2. Normal-appearing testicles. 3. 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 Over the course of several weeks his foot became increasingly irritated, swollen with blisters extending proximally up to his knee. In the ED he was found to have cellulitis and sepsis ; echocardiogram reveals reduced EF 25% with possible vegetation of aortic valve. We have been consulted to consider CHRISTIAN. Patient denies chest pain,sob or palpitations. BP elevated initially with SBP 179, which has improved with addition of lisinopril 5mg and metoprolol 25mg BID and lasix 20mg. ischemic cardiomyopathy- EF 25% new onset. assess for ischemia with lexiscan today. change metoprolol 25mg to carvedilol 6.25mg BID change lasix 20mg BID to IV 40mg daily start asa 81mg, atorvastatin 40mg daily check lipid profile; will likely require statin abnormal echo- CHRISTIAN requested due to aortic valve sclerosis with calcification versus possible vegetation at the base of the left coronary cusp the aortic valve. keep npo after midnight; plan for CHRISTIAN tomorrow scrotal swelling- urology following
[2018-08-11] MEDS: Metoprolol Tartrate 25 MG Tablet PO SCH (09:24)
[2018-08-11] MEDS: Senna/Docusate Sodium 8.6/50 MG Tablet PO SCH ×2 (09:39→22:12)
[2018-08-11] MEDS: Lisinopril 5 MG Tablet PO SCH (09:40)
[2018-08-11] MEDS ORDERED: Pharmacy Ordered Lab Info OTHER ONE (09:45)
[2018-08-11 10:09] LABS: Baso # (Auto) 0.1 th/mm3 (0.0-0.2); Baso % (Auto) 0.9 % (0.0-2.0); Eos # (Auto) 0.1 th/mm3 (0.0-0.4); Eos % (Auto) 0.7 % (0.0-4.0); Hematocrit 44.3 % (39.0-51.0); Hemoglobin 14.9 gm/dL (13.0-17.0); Lymph # (Auto) 1.8 th/mm3 (1.0-4.8); Lymph % (Auto) 17.7 % (9.0-44.0); Mean Corpuscular HGB Conc 33.6 % (32.0-36.0); Mean Corpuscular Hemoglobin 30.5 pg (27.0-34.0); Mean Corpuscular Volume 90.7 fL (80.0-100.0); Mean Platelet Volume 11.1 fL (7.0-11.0); Mono # (Auto) 0.7 th/mm3 (0.0-0.9); Mono % (Auto) 6.4 % (0.0-8.0); Neut # (Auto) 7.7 th/mm3 (1.8-7.7); Neut % (Auto) 74.3 % (16.0-70.0); Platelet Count 154 th/mm3 (150-450); Red Blood Count 4.88 mil/mm3 (4.50-5.90); Red Cell Distribution Width 13.3 % (11.6-17.2); White Blood Count 10.4 th/mm3 (4.0-11.0)
[2018-08-11 10:20] LABS: Calcium 8.2 mg/dL (8.5-10.1); Carbon Dioxide 22.4 meq/L (21.0-32.0); Potassium 3.8 meq/L (3.5-5.1)
[2018-08-11 10:26] LABS: Chol/HDL Ratio 4.68 Ratio; HDL Cholesterol 31.8 mg/dL (40.0-60.0); Vancomycin,Trough 10.4 mcg/mL (5.0-10.0)
--- NOTE | 2018-08-11 12:26 | P.CONURO ---
History of Present Illness Service: Consult date: 08/11/18 Requesting Physician: Maryellen Connelly Reason for Consult: Scrotal swelling Primary Care Provider: No Primary Care Physician Chief Complaint: R leg infection History of Present Illness: 53-year-old gentleman who was admitted for further management of right lower extremity cellulitis. During the course of his hospitalization he had complained of some scrotal swelling and a scrotal ultrasound study ordered. The ultrasound demonstrated normal blood flow to both testes which were normal in size and appearance. There were small bilateral hydroceles noted and scrotal wall thickening. Urology consult was placed regarding these findings. At the time of consultation, the patient reported that the scrotal swelling had improved after he had received Lasix administration. It appears that this has been an ongoing problem for this patient. Cardiology is presently working this patient up for diminished ejection fraction and a vegetation noted on the aortic valve. Review of Systems All other systems reviewed negative except as stated in HPI PMFSH - History History Provided By: Patient - Tobacco History Second Hand Smoke Exposure: No Smoking Status: Never smoker - Alcohol History How Often Do You Have a Drink Containing Alcohol: Monthly or less - Substance Use History Substance History: Active Abuse - Substance Use Type Marijuana Status: Active Route Used: Inhalation Frequency: last use a few days ago Reason for Use: Get High - Travel History Recent Travel in the [place] Within the Last 8 Weeks: No Recent Travel Out of the Country Within the Last 8 Weeks: No - Immunization History Tetanus Immunization: >5 Years Medications and Allergies Active Medications: Active Medications Acetaminophen (Tylenol) 650 mg PO Q4H PRN PRN Reason: headache/fever/pain1-5 Hydrocodone Bitart/Acetaminophen (Eure 5/325) 1 tab PO Q6H PRN PRN Reason: pain 6 to 10 Al Hydroxide/Mg Hydroxide (Milk Of Dirk Cabrales) 30 ml PO Q12H PRN PRN Reason: Mild Constipation Aspirin (Ecotrin) 81 mg PO DAILY [facility] Last Admin: 08/11/18 09:39 Dose: 81 mg Atorvastatin Calcium (Lipitor) 40 mg PO DAILY [facility] Last Admin: 08/11/18 09:39 Dose: 40 mg Bisacodyl (Dulcolax Supp) 10 mg RECTAL DAILY PRN PRN Reason: SEVERE CONSITIPATION Carvedilol (Coreg) 6.25 mg PO BID [facility] Clonidine HCl (Catapres) 0.1 mg PO Q6H PRN PRN Reason: HYPERTENSION Furosemide (Lasix Inj) 40 mg IV.PUSH DAILY [facility] Heparin Sodium (Porcine) (Heparin Inj) 5,000 units SQ Q8HR [facility] Last Admin: 08/11/18 06:04 Dose: 5,000 units Vancomycin HCl 1,750 mg/ (Sodium Chloride) 517.5 mls @ 258.75 mls/hr IV.SIG Q12H [facility] Lactulose (Lactulose Liq) 30 ml PO DAILY PRN PRN Reason: SEVERE CONSITIPATION Lisinopril (Prinivil) 5 mg PO DAILY [facility] Last Admin: 08/11/18 09:40 Dose: 5 mg Miscellaneous Information ([facility] Ordered Lab Info) 0 each OTHER ONCE ONE Stop: 08/13/18 00:46 Ondansetron HCl (Zofran Inj) 4 mg IV.PUSH Q6H PRN PRN Reason: NAUSEA OR VOMITING Pharmacy Profile Note (Vancomycin Consult Pharmacy) 1 each OTHER UNSCH PRN PRN Reason: Pharmacy to dose Senna/Docusate Sodium (Magy-Colace) 1 tab PO BID [facility] Last Admin: 08/11/18 09:39 Dose: Not Given Sennosides (Senokot) 17.2 mg PO Q12H PRN PRN Reason: Moderate Constipation Sodium Chloride (Ns Flush) 2 ml IV.FLUSH PRN PRN PRN Reason: FLUSH AFTER USING IV ACCESS Allergies Allergy/AdvReac Type Severity Reaction Status Date / Time No Known Allergies Allergy Verified 08/09/18 15:47 Home Medications Medication Instructions Recorded Confirmed Type No Known Home Medications 08/09/18 08/09/18 History Physical Exam Vital Signs - 24 hr 08/10/18 20:00 08/10/18 23:56 08/11/18 04:00 Temperature 97.9 F 97.5 F L Pulse Rate 102 H 110 H 94 H Respiratory Rate 20 20 20 Blood Pressure 113/69 93/58 L 120/85 Pulse Oximetry 95 96 94 L 08/11/18 08:15 08/11/18 11:17 Temperature 98.7 F Pulse Rate 95 H 138 H Respiratory Rate 20 20 Blood Pressure 123/79 153/99 H Pulse Oximetry 96 97 Physical Exam: GENERAL: This is a well-nourished, well-developed patient, in no apparent distress. SKIN: No rashes, ecchymoses or lesions. Cool and dry. HEAD: Atraumatic. Normocephalic. No temporal or scalp tenderness. EYES: Pupils equal round and reactive. Extraocular motions intact. No scleral icterus. No injection or drainage. ENT: Nose without bleeding, purulent drainage or septal hematoma. Throat without erythema, tonsillar hypertrophy or exudate. Uvula midline. Airway patent. NECK: Trachea midline. No JVD or lymphadenopathy. Supple, nontender, no meningeal signs. GASTROINTESTINAL: Abdomen soft, non-tender, nondistended. No hepato-splenomegaly , or palpable masses. No guarding. GENITOURINARY: Scrotal edema without evidence of infection. Testes bilaterally descended. NEUROLOGICAL: Awake and alert. Cranial nerves II through XII intact. Motor and sensory grossly within normal limits. Five out of 5 muscle strength in all muscle groups. Normal speech. Laboratory Results - last 24 hr 08/10/18 08/11/18 08/11/18 18:30 09:35 09:38 WBC 10.4 RBC 4.88 Hgb 14.9 Hct 44.3 MCV 90.7 MCH 30.5 MCHC 33.6 RDW 13.3 Plt Count 154 MPV 11.1 H Neut % (Auto) 74.3 H Lymph % (Auto) 17.7 [place] % (Auto) 6.4 Eos % (Auto) 0.7 Baso % (Auto) 0.9 Neut # (Auto) 7.7 Lymph # (Auto) 1.8 [place] # (Auto) 0.7 Eos # (Auto) 0.1 Baso # (Auto) 0.1 WBC Differential . Differential Comment Auto diff final Sodium Potassium Chloride Carbon Dioxide Anion Gap BUN Creatinine Estimated GFR Random Glucose Calcium B-Natriuretic Peptide Triglycerides 129 Cholesterol 149 LDL Cholesterol, Calc 91 HDL Cholesterol 31.8 L Cholesterol/HDL Ratio 4.68 Urine Color Yellow Urine Clarity Hazy H Urine pH 6.0 Ur Specific [place] 1.019 Urine Protein 30 H Urine Glucose (UA) Negative Urine Ketones Negative Urine Occult Blood Negative Urine Nitrate Negative Urine Bilirubin Negative Urine Urobilinogen 2.0 H Ur Leukocyte Esterase Negative Urine RBC 1 Urine WBC 2 Ur Squamous Epith Cells <1 Hyaline Casts 3 Urine Mucus Few H Micro UA Comment Culture not ind Ur Microscopic Review Not Reportable Urine Culture Comments Culture not ind Vancomycin Trough 10.4 H 08/11/18 08/11/18 08/11/18 09:38 09:38 09:38 WBC RBC Hgb Hct MCV MCH MCHC RDW Plt Count MPV Neut % (Auto) Lymph % (Auto) [place] % (Auto) Eos % (Auto) Baso % (Auto) Neut # (Auto) Lymph # (Auto) [place] # (Auto) Eos # (Auto) Baso # (Auto) WBC Differential Differential Comment Sodium 136 Potassium 3.8 Chloride 105 Carbon Dioxide 22.4 Anion Gap 9 BUN 13 Creatinine 1.03 Estimated GFR 75 L Random Glucose 140 H Calcium 8.2 L B-Natriuretic Peptide 255 H Triglycerides Cancelled Cholesterol Cancelled LDL Cholesterol, Calc Cancelled HDL Cholesterol Cancelled Cholesterol/HDL Ratio Cancelled Urine Color Urine Clarity Urine pH Ur Specific [place] Urine Protein Urine Glucose (UA) Urine Ketones Urine Occult Blood Urine Nitrate Urine Bilirubin Urine Urobilinogen Ur Leukocyte Esterase Urine RBC Urine WBC Ur Squamous Epith Cells Hyaline Casts Urine Mucus Micro UA Comment Ur Microscopic Review Urine Culture Comments Vancomycin Trough Microbiology 08/09/18 15:30 Aerobic Blood Culture - Preliminary Blood - Peripheral No growth in 2 days Anaerobic Blood Culture - Preliminary No growth in 2 days 08/09/18 15:35 Aerobic Blood Culture - Preliminary Blood - Peripheral No growth in 2 days Anaerobic Blood Culture - Preliminary No growth in 2 days 08/09/18 15:30 Gram Stain - Final Abscess - Leg Wound Culture - Preliminary Staphylococcus aureus Group B beta Strep gram negative rods Result Diagrams: 08/11/18 09:35 08/11/18 09:38 Imaging: ITS Impressions Foot X-Ray 08/09/18 15:19 CONCLUSION: 1. Achilles and plantar calcaneal spurring. 2. No acute fracture or dislocation. 3. Mild arthritic changes involving the ankle and midfoot. Venous Doppler Study 08/09/18 15:20 CONCLUSION: 1. No DVT identified. Scrotum Ultrasound 08/09/18 17:20 CONCLUSION: 1. Diffuse extensive scrotal wall thickening, likely infectious. 2. Normal-appearing testicles. 3. Small bilateral hydroceles Assessment and Plan - Assessment (1) Scrotal edema Code(s): N50.89 - Other specified disorders of the male genital organs Status : Acute - Plan Urologic impression: Chronic scrotal edema as part of a generalized process. Recommendations: 1. Treat underlying cause of generalized edema 2. Keep scrotum elevated as much as possible 3. Nothing further to add at this time and will be available as needed.
[2018-08-11] MEDS: Vancomycin Inj 1,750 MG in Sodium Chlor 0.9% Inj 500 ML IV.SIG SCH (12:45)
[2018-08-11] MEDS ORDERED: Regadenoson Inj 0.4 MG/5 ML Syringe IV.PUSH ONE (13:31)
[2018-08-11] MEDS ORDERED: Dextrose 50% in Water 50 ML Vial IV.PUSH PRN (15:34)
--- NOTE | 2018-08-11 15:42 | P.PN ---
Subjective Interval history: Patient seen around 11am. Follow up for sepsis, cellulitis, scrotal edema, new CHF. The patient is seen after returning from nuclear stress test that was stopped due to tachycardia. The patient states he never had any chest pain, palpitations, or shortness of breath during this episode. Heart currently in the 90s. He reports his RLE edema/erythema has been improving. His wounds throughout the RLE have dried up, no purulent drainage. Denies fevers/chills. He also reports his scrotal edema has improved and he has been able to urinate. Denies any other medical complaints at this time. Physical Exam Vital signs: Vital Signs 08/10/18 20:00 08/10/18 23:56 08/11/18 04:00 Temperature 97.9 F 97.5 F L Pulse Rate 102 H 110 H 94 H Respiratory Rate 20 20 20 Blood Pressure 113/69 93/58 L 120/85 Pulse Oximetry 95 96 94 L 08/11/18 08:15 08/11/18 11:17 Temperature 98.7 F Pulse Rate 95 H 138 H Respiratory Rate 20 20 Blood Pressure 123/79 153/99 H Pulse Oximetry 96 97 Intake & Output 08/10/18 08/11/18 08/11/18 18:59 06:59 18:59 Intake Total 515 / 515 515 / 515 Balance 515 / 515 515 / 515 Intake: IV 515 / 515 515 / 515 Vancomycin Inj 1,500 MG In NS 515 / 515 515 / 515 Inj 500 ML @ 250 mls/hr IV.SIG Q12H [facility] Rx#:[id number] Other: Date of Last Bowel Movement 08/10/18 Narrative: GENERAL: Well-nourished, well-developed obese middle aged male patient in [facility]. SKIN: Warm and dry. See lower extremities below. HEENT: Normocephalic. Atraumatic. Pupils equal and round. Mucous membranes pink and moist. CARDIOVASCULAR: Regular rate and rhythm. No murmur appreciated. RESPIRATORY: No accessory muscle use. Clear to auscultation. Breath sounds equal bilaterally. GASTROINTESTINAL: Abdomen soft, non-tender, nondistended. Normoactive bowel sounds x4. GENITOURINARY: Diffusely edematous and mildly erythematous scrotum, no open wounds, tender to palpation. MUSCULOSKELETAL: No obvious deformities. RLE with diffuse erythema, abrasions, 1 + edema, scattered pustules, with 3cm ulcer at right hallux and smaller 1cm ulcer at lateral 5th toe. NEUROLOGICAL: Awake and alert. No obvious cranial nerve deficits. Moving all extremities spontaneously. Normal speech. PSYCHIATRIC: Appropriate mood and affect; insight and judgment normal. . Results - Labs CBC & Chem 7: 08/11/18 09:35 08/11/18 09:38 Laboratory Results - last 24 hr 08/10/18 08/11/18 08/11/18 18:30 09:35 09:38 WBC 10.4 RBC 4.88 Hgb 14.9 Hct 44.3 MCV 90.7 MCH 30.5 MCHC 33.6 RDW 13.3 Plt Count 154 MPV 11.1 H Neut % (Auto) 74.3 H Lymph % (Auto) 17.7 [place] % (Auto) 6.4 Eos % (Auto) 0.7 Baso % (Auto) 0.9 Neut # (Auto) 7.7 Lymph # (Auto) 1.8 [place] # (Auto) 0.7 Eos # (Auto) 0.1 Baso # (Auto) 0.1 WBC Differential . Differential Comment Auto diff final Sodium Potassium Chloride Carbon Dioxide Anion Gap BUN Creatinine Estimated GFR Random Glucose Calcium B-Natriuretic Peptide Triglycerides 129 Cholesterol 149 LDL Cholesterol, Calc 91 HDL Cholesterol 31.8 L Cholesterol/HDL Ratio 4.68 Urine Color Yellow Urine Clarity Hazy H Urine pH 6.0 Ur Specific [place] 1.019 Urine Protein 30 H Urine Glucose (UA) Negative Urine Ketones Negative Urine Occult Blood Negative Urine Nitrate Negative Urine Bilirubin Negative Urine Urobilinogen 2.0 H Ur Leukocyte Esterase Negative Urine RBC 1 Urine WBC 2 Ur Squamous Epith Cells <1 Hyaline Casts 3 Urine Mucus Few H Micro UA Comment Culture not ind Ur Microscopic Review Not Reportable Urine Culture Comments Culture not ind Vancomycin Trough 10.4 H 08/11/18 08/11/18 08/11/18 09:38 09:38 09:38 WBC RBC Hgb Hct MCV MCH MCHC RDW Plt Count MPV Neut % (Auto) Lymph % (Auto) [place] % (Auto) Eos % (Auto) Baso % (Auto) Neut # (Auto) Lymph # (Auto) [place] # (Auto) Eos # (Auto) Baso # (Auto) WBC Differential Differential Comment Sodium 136 Potassium 3.8 Chloride 105 Carbon Dioxide 22.4 Anion Gap 9 BUN 13 Creatinine 1.03 Estimated GFR 75 L Random Glucose 140 H Calcium 8.2 L B-Natriuretic Peptide 255 H Triglycerides Cancelled Cholesterol Cancelled LDL Cholesterol, Calc Cancelled HDL Cholesterol Cancelled Cholesterol/HDL Ratio Cancelled Urine Color Urine Clarity Urine pH Ur Specific [place] Urine Protein Urine Glucose (UA) Urine Ketones Urine Occult Blood Urine Nitrate Urine Bilirubin Urine Urobilinogen Ur Leukocyte Esterase Urine RBC Urine WBC Ur Squamous Epith Cells Hyaline Casts Urine Mucus Micro UA Comment Ur Microscopic Review Urine Culture Comments Vancomycin Trough Microbiology 08/09/18 15:30 Blood - Peripheral Aerobic Blood Culture - Preliminary No growth in 2 days 08/09/18 15:30 Blood - Peripheral Anaerobic Blood Culture - Preliminary No growth in 2 days 08/09/18 15:35 Blood - Peripheral Aerobic Blood Culture - Preliminary No growth in 2 days 08/09/18 15:35 Blood - Peripheral Anaerobic Blood Culture - Preliminary No growth in 2 days 08/09/18 15:30 Abscess - Leg Gram Stain - Final 08/09/18 15:30 Abscess - Leg Wound Culture - Preliminary Staphylococcus aureus Group B beta Strep gram negative rods - Imaging Foot X-Ray 08/09/18 15:19 CONCLUSION: 1. Achilles and plantar calcaneal spurring. 2. No acute fracture or dislocation. 3. Mild arthritic changes involving the ankle and midfoot. Venous Doppler Study 08/09/18 15:20 CONCLUSION: 1. No DVT identified. Scrotum Ultrasound 08/09/18 17:20 CONCLUSION: 1. Diffuse extensive scrotal wall thickening, likely infectious. 2. Normal-appearing testicles. 3. Small bilateral hydroceles Assessment and Plan - Plan 53-year-old male with no significant past medical history although has not seen any physician in 25 years, presents with a 2-week history of right lower extremity blisters and cellulitis. 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 Sepsis with Bilateral lower extremity cellulitis and right hallux ulcer: Right worse than left. Meets sepsis criteria with leukocytosis WBC 13.1K, tachycardia HR 141, source-cellulitis. -Foot xray with no acute fracture/dislocation, mild arthritic changes of ankle/midfoot; Achilles and plantar calcaneal spurring -Doppler U/S negative for DVT -Wound culture collected, preliminary with staph aureus, group B strep, and gram negative rods -Blood cultures with NGTD -Continue antibiotics with IV Vanco with pharmacy consult, add IV Zosyn for now -Elevate lower extremities -Consult wound care -Consult infectious disease -sepsis improving, WBC 10.4K today Scrotal Edema, possible Cellulitis: acute, patient reports recent injury to scrotum with subsequent swelling/pain/dysuria. -Scrotum U/S with diffuse extensive scrotal wall thickening, likely infectious; normal testicles, small bilateral hydroceles -started on diuretic with HCTZ, changed to lasix -Already on IV vanco and IV Zosyn as above -UA unremarkable -Scrotal elevation -Consult urology, appreciate recommendations New Onset Systolic CHF with possible Aortic Valve Vegetation: no hx of CHF, patient with fluid overload -Echocardiogram showed EF 25-30%, diffuse global hypokinesis, aortic valve sclerosis with calcification vs possible vegetation, consider CHRISTIAN -Started on lisinopril, coreg, lasix, aspirin, statin -check lipid panel -Consult cardiology -Nuclear stress test ordered for ischemic evaluation -Plan for CHRISTIAN tomorrow Hypertension: acute, no prior diagnosis of high blood pressure -started on lisinopril and coreg -clonidine prn -monitor BP, adjust antihypertensives as needed Elevated Blood Glucose: BG 127, unknown if fasting BG -check HgbA1c -monitor Accu-checks and cover with SSI for now DVT Prophylaxis: Heparin sq
--- NOTE | 2018-08-11 15:47 | P.CONID ---
History of Present Illness Service: ID Consult date: 08/11/18 Requesting Physician: Maryellen Connelly Primary Care Provider: No Primary Care Physician Chief Complaint: R leg infection History of Present Illness: 53 yo male not seen doctors for 30 years presented with swelling redness and ulcerations over his BLE for few days He lso developped swelling of scrotum He presented afebrile with mild leukocytosis of 13 K He also has R hallux tip ulceration Started on Vancomycin and Piperacillin/Tazobactam 2 D echo was done and showed reduced LV function of 30% and ? aortic valve vegetations Denies past med history except DM NO surgereis in the past Social : smokes pot, no tobacco, occasional ETOH Family hx: no contributory Review of Systems All other systems reviewed negative except as stated in HPI PMFSH - History History Provided By: Patient - Tobacco History Second Hand Smoke Exposure: No Smoking Status: Never smoker - Alcohol History How Often Do You Have a Drink Containing Alcohol: Monthly or less - Substance Use History Substance History: Active Abuse - Substance Use Type Marijuana Status: Active Route Used: Inhalation Frequency: last use a few days ago Reason for Use: Get High - Travel History Recent Travel in the [place] Within the Last 8 Weeks: No Recent Travel Out of the Country Within the Last 8 Weeks: No - Immunization History Tetanus Immunization: >5 Years Medications and Allergies Active Medications: Active Medications Acetaminophen (Tylenol) 650 mg PO Q4H PRN PRN Reason: headache/fever/pain1-5 Hydrocodone Bitart/Acetaminophen ([place] 5/325) 1 tab PO Q6H PRN PRN Reason: pain 6 to 10 Al Hydroxide/Mg Hydroxide (Milk Of Dirk Cabrales) 30 ml PO Q12H PRN PRN Reason: Mild Constipation Aspirin (Ecotrin) 81 mg PO DAILY [facility] Last Admin: 08/11/18 09:39 Dose: 81 mg Atorvastatin Calcium (Lipitor) 40 mg PO DAILY [facility] Last Admin: 08/11/18 09:39 Dose: 40 mg Bisacodyl (Dulcolax Supp) 10 mg RECTAL DAILY PRN PRN Reason: SEVERE CONSITIPATION Carvedilol (Coreg) 6.25 mg PO BID [facility] Clonidine HCl (Catapres) 0.1 mg PO Q6H PRN PRN Reason: HYPERTENSION Furosemide (Lasix Inj) 40 mg IV.PUSH DAILY [facility] Heparin Sodium (Porcine) (Heparin Inj) 5,000 units SQ Q8HR [facility] Last Admin: 08/11/18 06:04 Dose: 5,000 units Vancomycin HCl 1,750 mg/ (Sodium Chloride) 517.5 mls @ 258.75 mls/hr IV.SIG Q12H [facility] Last Infusion: 08/11/18 12:46 Dose: 250 mls/hr Piperacillin/Tazobactam/Dextrose (Zosyn 3.375 Gm Premix) 50 mls @ 100 mls/hr IV.SIG Q6H [facility] Lactulose (Lactulose Liq) 30 ml PO DAILY PRN PRN Reason: SEVERE CONSITIPATION Lisinopril (Prinivil) 5 mg PO DAILY [facility] Last Admin: 08/11/18 09:40 Dose: 5 mg Miscellaneous Information ([facility] Ordered Lab Info) 0 each OTHER ONCE ONE Stop: 08/13/18 00:46 Ondansetron HCl (Zofran Inj) 4 mg IV.PUSH Q6H PRN PRN Reason: NAUSEA OR VOMITING Pharmacy Profile Note (Vancomycin Consult Pharmacy) 1 each OTHER UNSCH PRN PRN Reason: Pharmacy to dose Senna/Docusate Sodium (Magy-Colace) 1 tab PO BID [facility] Last Admin: 08/11/18 09:39 Dose: Not Given Sennosides (Senokot) 17.2 mg PO Q12H PRN PRN Reason: Moderate Constipation Sodium Chloride (Ns Flush) 2 ml IV.FLUSH PRN PRN PRN Reason: FLUSH AFTER USING IV ACCESS Allergies Allergy/AdvReac Type Severity Reaction Status Date / Time No Known Allergies Allergy Verified 08/09/18 15:47 Home Medications Medication Instructions Recorded Confirmed Type No Known Home Medications 08/09/18 08/09/18 History Exam Vital signs: Vital Signs 08/10/18 20:00 08/10/18 23:56 08/11/18 04:00 Temperature 97.9 F 97.5 F L Pulse Rate 102 H 110 H 94 H Respiratory Rate 20 20 20 Blood Pressure 113/69 93/58 L 120/85 Pulse Oximetry 95 96 94 L 08/11/18 08:15 08/11/18 11:17 Temperature 98.7 F Pulse Rate 95 H 138 H Respiratory Rate 20 20 Blood Pressure 123/79 153/99 H Pulse Oximetry 96 97 Intake & Output 1108/11/18 08/11/18 18:59 06:59 18:59 Intake Total 515 / 515 515 / 515 Balance 515 / 515 515 / 515 Intake: IV 515 / 515 515 / 515 Vancomycin Inj 1,500 MG In NS 515 / 515 515 / 515 Inj 500 ML @ 250 mls/hr IV.SIG Q12H [facility] Rx#:[id number] Other: Date of Last Bowel Movement 08/10/18 - Constitutional no acute distress, morbidly obese - Routine HEENT Exam Head: Present: normocephalic, atraumatic Eye: Present: EOMI, PERRL ENT: Present: mucous membranes moist, oropharynx clear - Routine Neck Exam Present: supple. Absent: JVD - Routine Respiratory Exam Present: decreased breath sounds (habitus), CTA bilaterally. Absent: accessory muscle use - Routine Cardiovascular Exam Present: RRR, S1, S2. Absent: murmur, gallop, rubs - Routine Abdominal Exam Present: soft, normoactive bowel sounds, distended. Absent: tenderness, organomegaly, mass Comments: abdominal wall edema, erytehjma suprapubic area edema, erythema - Routine Exam Scrotal: Present: swelling. Absent: erythema Groin: Present: swelling, erythema - Routine Extremities Exam Present: edema (3-4+), full ROM, normal capillary refill. Absent: cyanosis, clubbing Comments: Marked BLE erythema with shallow ulcers in various stages of healing - Routine Skin Exam Present: erythema, lesions - Routine Neurological Exam Present: alert, oriented X3, CN II-XII intact. Absent: sensory deficit, motor deficit - Routine Psychiatric Exam Present: normal affect, cooperative Results - Labs CBC & Chem 7: 08/11/18 09:35 08/11/18 09:38 Labs: Laboratory Results - last 24 hr 08/10/18 08/11/18 08/11/18 18:30 09:35 09:38 WBC 10.4 RBC 4.88 Hgb 14.9 Hct 44.3 MCV 90.7 MCH 30.5 MCHC 33.6 RDW 13.3 Plt Count 154 MPV 11.1 H Neut % (Auto) 74.3 H Lymph % (Auto) 17.7 [place] % (Auto) 6.4 Eos % (Auto) 0.7 Baso % (Auto) 0.9 Neut # (Auto) 7.7 Lymph # (Auto) 1.8 [place] # (Auto) 0.7 Eos # (Auto) 0.1 Baso # (Auto) 0.1 WBC Differential . Differential Comment Auto diff final Sodium Potassium Chloride Carbon Dioxide Anion Gap BUN Creatinine Estimated GFR Random Glucose Calcium B-Natriuretic Peptide Triglycerides 129 Cholesterol 149 LDL Cholesterol, Calc 91 HDL Cholesterol 31.8 L Cholesterol/HDL Ratio 4.68 Urine Color Yellow Urine Clarity Hazy H Urine pH 6.0 Ur Specific [place] 1.019 Urine Protein 30 H Urine Glucose (UA) Negative Urine Ketones Negative Urine Occult Blood Negative Urine Nitrate Negative Urine Bilirubin Negative Urine Urobilinogen 2.0 H Ur Leukocyte Esterase Negative Urine RBC 1 Urine WBC 2 Ur Squamous Epith Cells <1 Hyaline Casts 3 Urine Mucus Few H Micro UA Comment Culture not ind Ur Microscopic Review Not Reportable Urine Culture Comments Culture not ind Vancomycin Trough 10.4 H 08/11/18 08/11/18 08/11/18 09:38 09:38 09:38 WBC RBC Hgb Hct MCV MCH MCHC RDW Plt Count MPV Neut % (Auto) Lymph % (Auto) [place] % (Auto) Eos % (Auto) Baso % (Auto) Neut # (Auto) Lymph # (Auto) [place] # (Auto) Eos # (Auto) Baso # (Auto) WBC Differential Differential Comment Sodium 136 Potassium 3.8 Chloride 105 Carbon Dioxide 22.4 Anion Gap 9 BUN 13 Creatinine 1.03 Estimated GFR 75 L Random Glucose 140 H Calcium 8.2 L B-Natriuretic Peptide 255 H Triglycerides Cancelled Cholesterol Cancelled LDL Cholesterol, Calc Cancelled HDL Cholesterol Cancelled Cholesterol/HDL Ratio Cancelled Urine Color Urine Clarity Urine pH Ur Specific [place] Urine Protein Urine Glucose (UA) Urine Ketones Urine Occult Blood Urine Nitrate Urine Bilirubin Urine Urobilinogen Ur Leukocyte Esterase Urine RBC Urine WBC Ur Squamous Epith Cells Hyaline Casts Urine Mucus Micro UA Comment Ur Microscopic Review Urine Culture Comments Vancomycin Trough - Imaging ITS Impressions Foot X-Ray 08/09/18 15:19 CONCLUSION: 1. Achilles and plantar calcaneal spurring. 2. No acute fracture or dislocation. 3. Mild arthritic changes involving the ankle and midfoot. Venous Doppler Study 08/09/18 15:20 CONCLUSION: 1. No DVT identified. Scrotum Ultrasound 08/09/18 17:20 CONCLUSION: 1. Diffuse extensive scrotal wall thickening, likely infectious. 2. Normal-appearing testicles. 3. Small bilateral hydroceles Assessment and Plan - Plan Severe LV systolic disfunction BLE edema 2/2 heart failure Superficially infected ulcers of BLE and cellulitis Scrotal edema, 2/2 heart failure Mild cellulitis of edematous pannus area and suprapubic area: those ulcers are growing polimicrobial sanju, sensitivities P ? Aortic valve vegetation cont broad shikha ruiz abx CHRISTIAN dw Dr Mayberry, cardologist
--- NOTE | 2018-08-11 17:23 | P.PNWCN ---
Wound Care Nurse Consult Description: Received consult from Maryellen Martin for RLE hallux and dobbins Communicated with: Doctor Mosies Georges and RN Lillie CDU Recommendation: 1. Consult Podiatry 2.Please cleanse wound to R great toe, R dorsal foot and defuse ulcerations to RLE with normal saline or wound cleanser and pat dry. Apply skin barrier film to periwound. Cover R great toe and R dorsal foot wounds with foam gentle AG 8x8 cut to fit over wounds and secured with rolled gauze and tape. Change dressing every 3 days or as needed if saturated or dislodged. while in hospital and until seen by podiatry. 3.Cover diffuse wounds to RLE with foam gentle AG cut to fit over wound beds and secure with ABD pads, rolled gauze and tape. Change every 3 days or as needed if saturated or dislodged.While in hospital and until seen by podiatry 4.Please elevate patient's legs when he is sitting or in bed. 5. Patient needs patient assistance for continued treatment of wound after discharge. Will need outpatient wound care center. Wound/Pressure Injury - Wound Right Lower Leg diffuse ulcerations Wound Assessment: Ongoing Wound Type: Traumatic Wound Is This a Chronic Wound: No Requested from Provider a Wound Care Consult: Yes Length (cm): 0 (See note below) Width (cm): 0 (See note below) Depth (cm): 0 (See note below) Wound Bed Appearance: ~80% red non granulation tissue to both larger ulcerations and ~20% yellow thin exudate that was cleansed with normal saline and gauze pads and removed to reveal 100% red non granulation tissue. All other diffuse arterial appearing ulcerations present with ~60% red non granulation tissue and ~40% yellow tissue Surrounding Tissue Appearance: Erythema Surrounding Tissue Temperature: Warm Drainage Description: Serosanguinous Drainage Amount: Moderate Drainage Odor: Slight Odor Dressing Status: Changed Cleansing Solution: Saline Primary Dressing: Foam gentle AG dressings 8x8 cut to fit wounds Cover Dressing: Gauze Roll/Wrap Tape Type: Paper Wound Dressing Change Date: 08/11/18 Wound Margin Description: See note below. Right dorsal foot Wound Assessment: Ongoing Wound Type: Traumatic Wound Is This a Chronic Wound: No Requested from Provider a Wound Care Consult: Yes (Wound care saw patient.) Length (cm): 1 Width (cm): 1 Depth (cm): 0.2 (~0.2cm) Wound Bed Appearance: 100% pale red non granulation tissue Surrounding Tissue Appearance: Blanched/Dull (light purple discoloration) Surrounding Tissue Temperature: Cool Drainage Amount: None Drainage Odor: No Odor Cleansing Solution: Saline Primary Dressing: Foam AG gentle 8x8 dressing cut to fit Cover Dressing: Gauze Roll/Wrap Tape Type: Paper Wound Dressing Change Date: 08/11/18 Right Great Toe Wound Assessment: Ongoing Wound Type: Traumatic Wound Is This a Chronic Wound: No Requested from Provider a Wound Care Consult: Yes (Wound care saw patient) Length (cm): 2 Width (cm): 1.8 Depth (cm): 0.2 (~0.2cm in depth) Wound Bed Appearance: ~80% red non granulation tissue and ~20% yellow thin exudate that was removed easily with cleansing to reveal 100% red non granulation tissue. Periwound is hyperkeratotic with brown discoloration. Surrounding Tissue Temperature: Cool Drainage Description: Sanguinous Drainage Amount: Scant Drainage Odor: No Odor Dressing Status: Changed Cleansing Solution: Saline Primary Dressing: Foam ag gentle 8x8 cut to fit wound bed Cover Dressing: Gauze Roll/Wrap Tape Type: Paper Wound Dressing Change Date: 08/11/18 Wound Margin Description: Wound margins are well defined and steep - Additional Information Patient seen on H pod for RLE hallux and dobbins. Patient is sitting up in chair with legs in dependent position. R leg is noted with towel wrapped around it. Removed the towel to reveal diffuse ulcerations to R lower leg. Also noted is wound to R great toe and R dorsal foot. Diffuse ulcerations on RLE present with an appearance of mixed Venous and arterial ulcers. The larger ulcerations on the R dobbins and R lower posterior leg present with Venous appearance, with uneven , poorly defined wound margins, and irregular shape.The larger of these ulcerations measures ~20cm x ~4cm x ~0.1cm on the posterior leg. The R dobbins ulceration measures 14cm x 4cm x 0.1. Both venous appearing ulcerations present with ~80% red non granulation tissue and ~20% thin yellow exudate that was easily removed upon cleansing with normal saline and gauze pads. Periwound presents with erythema, scabs and other lesions. All other ulcerations with R lower leg present with an arterial etiology appearance. Arterial appearing ulcerations are smaller, with well defined even wound margin, with steep punched out appearance. These ulcerations are diffuse and scattered, with the largest of the wounds measuring ~2cm x ~2cm x ~ 0.2cm.Wound beds present with ~60% red non granulation tissue and ~40% yellow tissue.Periwound presents with diffuse lesions, scabs and red discoloration. R foot presents with some light purple discoloration and open dry wound to dorsal aspect of foot. Wound presents with 100% red non granulation tissue and is shallow measuring 1cm x 1cm x 0.2cm.Periwound presents with light purple discoloration and dry peeling skin.Wound margins are well defined and steep R great toe wound presents with ~80% red non granulation tissue and ~20% yellow exudate that was removed with cleansing to reveal 100% red non granulation tissue.Wound margins to this wound present as well defined and steep. Periwound presents with hard hyperkeratotic tissue that has brown discoloration. R great toe wound measures 2cm x 1.8cm x ~0.2cm. All wounds were cleansed with normal saline, patted and skin barrier film applied to intact skin on periwound. All open wounds were covered with foam gentle AG 8x8 dressings that were cut to fit over patient's wounds. Secured dressings in place with rolled gauze and tape. Patient denies ever being diagnosed with Diabetes and does not see anybody out patient for the wounds, he says started in June. Patient reports having no insurance, and need for patient assistance.
[2018-08-11] MEDS: Insulin NovoLOG Aspart Correctional Sugar Inj SQ SCH ×2 (18:31→22:12)
[2018-08-11] MEDS: Vancomycin Inj 1,500 MG in Sodium Chlor 0.9% Inj 500 ML IV.SIG SCH (18:56)
[2018-08-11] MEDS: Piperacil/Tazo 3.375 GM Premix 50 ML IV.SIG SCH ×2 (20:00→22:13)
[2018-08-11] MEDS: Carvedilol 6.25 MG Tablet PO SCH (22:13)
[2018-08-12] MEDS: Vancomycin Inj 1,750 MG in Sodium Chlor 0.9% Inj 500 ML IV.SIG SCH (02:20)
[2018-08-12] MEDS: Piperacil/Tazo 3.375 GM Premix 50 ML IV.SIG SCH ×4 (04:46→21:50)
[2018-08-12] MEDS: Senna/Docusate Sodium 8.6/50 MG Tablet PO SCH ×2 (08:05→21:50)
[2018-08-12] MEDS: Lisinopril 5 MG Tablet PO SCH (08:05)
[2018-08-12] MEDS: Carvedilol 6.25 MG Tablet PO SCH ×2 (08:05→21:50)
[2018-08-12] MEDS: Insulin NovoLOG Aspart Correctional Sugar Inj SQ SCH ×4 (08:15→21:49)
[2018-08-12] MEDS: Heparin - SQ 10,000 UNITS/ML Vial SQ SCH ×3 (08:19→21:50)
[2018-08-12 08:33] LABS: Baso # (Auto) 0.1 th/mm3 (0.0-0.2); Eos # (Auto) 0.1 th/mm3 (0.0-0.4); Eos % (Auto) 1.3 % (0.0-4.0); Hematocrit 42.9 % (39.0-51.0); Hemoglobin 14.6 gm/dL (13.0-17.0); Mean Corpuscular Hemoglobin 31.1 pg (27.0-34.0); Mean Corpuscular Volume 91.6 fL (80.0-100.0); Mean Platelet Volume 11.3 fL (7.0-11.0); Mono # (Auto) 0.6 th/mm3 (0.0-0.9); Mono % (Auto) 6.8 % (0.0-8.0); Neut # (Auto) 6.3 th/mm3 (1.8-7.7); Neut % (Auto) 68.9 % (16.0-70.0); Platelet Count 152 th/mm3 (150-450); Red Blood Count 4.68 mil/mm3 (4.50-5.90); Red Cell Distribution Width 13.6 % (11.6-17.2); White Blood Count 9.2 th/mm3 (4.0-11.0)
[2018-08-12] MEDS ORDERED: Metoprolol Tartrate 25 MG Tablet PO ONE (08:46)
[2018-08-12] MEDS ORDERED: Chlorhexidine Gluconate 2% 1 Pack (2 Cloths) TOPICAL ONE (08:46)
[2018-08-12 08:59] LABS: Calcium 7.9 mg/dL (8.5-10.1); Carbon Dioxide 27.9 meq/L (21.0-32.0); Potassium 3.7 meq/L (3.5-5.1)
--- NOTE | 2018-08-12 10:35 | NM ---
EXAM DATE: 08/12/2018 10:31 AM EST AGE/SEX: 53 years / Male INDICATIONS:Congestive heart failure. . CLINICAL DATA: This is the patient's initial encounter. Patient reports that signs and symptoms have been present for 1 day and indicates a pain score of 2/10. MEDICAL/SURGICAL HISTORY: Hypertension. None. COMPARISON: No prior exams available for comparison. DOSE: 30.2 mCi Tc 99m Myoview at rest 30 mCi [id number] at stress 0.4 mg Lexiscan STRESS SYMPTOMS: Asymptomatic. EJECTION FRACTION: 19 % TECHNIQUE: The patient underwent pharmacologic stress with infusion of prescribed dose. Continuous ECG tracing was monitored during stress. Gated SPECT imaging was performed after stress and conventi onal SPECT imaging was performed at rest. The examination was performed on a SPECT/CT scanner, both attenuation and non-corrected datasets were reviewed. FINDINGS: Distribution: The maximum perfused segment at stress is in the posterobasal wall. Perfusion Study: Mildly diminished flow to portions of the anterior wall and inferior wall. No redi stribution Gated Study: Pronounced left ventricular chamber dilatation and severe global hypokinesis The eject ion fraction is calculated at 19%. RISK CATEGORY: High (>3% Annual Morality Rate) CONCLUSION: 1. No reversible perfusion abnormalities. 2. Severe LV chamber dilatation and dysfunction Electronically signed by: Jimbo Morales MD 08/12/2018 10:34 AM EST
--- NOTE | 2018-08-12 11:07 | ECHRPT ---
Indication: SEPSIS CONCLUSIONS Mildly dilated left ventricle. The left ventricular systolic function is severely reduced with an estimated ejection fraction in th e range of 20-25%. Trileaflet aortic valve. Aortic valve sclerosis is present. No aortic valve regurgitation. No aortic valve stenosis. Mild thickening of the tricuspid valve leaflets. There is trace tricuspid valve regurgitation. Mild thickening of the mitral valve leaflets. Oinr-ts-padoxszc mitral valve regurgitation. BP: / HR: Rhythm: Technical Quality: Medications Complications Proc. Components FINDINGS LEFT VENTRICLE Mildly dilated left ventricle. The left ventricular systolic function is severely reduced with an estimated ejection fraction in th e range of 20-25%. RIGHT VENTRICLE Normal right ventricular size and systolic function. LEFT ATRIUM The left atrial size is normal. RIGHT ATRIUM The right atrial size is normal. ATRIAL APPENDAGES Normal left atrial appendage size with no evidence of thrombus formation. ATRIAL SEPTUM Normal atrial septal thickness without atrial level shunting by limited color doppler interrogation. AORTA The aortic root and proximal ascending aorta are normal in size on limited imaging. MITRAL VALVE Mild thickening of the mitral valve leaflets. [id number] mitral valve regurgitation. AORTIC VALVE Trileaflet aortic valve. Aortic valve sclerosis is present. No aortic valve regurgitation. No aortic valve stenosis. TRICUSPID VALVE Mild thickening of the tricuspid valve leaflets. There is trace tricuspid valve regurgitation. VESSELS The inferior vena cava is normal in size. PULMONARY VALVE The pulmonary valve is not well visualized. PERICADIUM No pericardial effusion. Jeff Burt MD, FACC (Electronically Signed) Final Date:12 August 2018 11:05
--- NOTE | 2018-08-12 11:35 | P.PN ---
Subjective Interval history: Follow up for sepsis, RLE cellulitis, scrotal edema, new CHF. The patient reports right leg swelling and erythema continues to improve. He states his scrotal edema has also improved. Denies dysuria. Denies fevers/chills. Denies chest pain or shortness of breath. He has no other medical complaints at this time. Physical Exam Vital signs: Vital Signs 08/11/18 16:07 08/11/18 20:00 08/11/18 23:53 Temperature 98.2 F 98.5 F 97.7 F Pulse Rate 137 H 132 H 105 H Respiratory Rate 20 20 20 Blood Pressure 134/85 145/100 H 123/65 Pulse Oximetry 92 L 94 L 08/12/18 04:00 08/12/18 08:00 Temperature 97.6 F 97.5 F L Pulse Rate 92 H 111 H Respiratory Rate 18 19 Blood Pressure 158/62 H 151/97 H Pulse Oximetry 94 L 94 L Intake & Output 08/11/18 08/12/18 08/12/18 18:59 06:59 18:59 Intake Total 1185.0 / 1185.0 Balance 1185.0 / 1185.0 Intake: IV 1185.0 / 1185.0 Zosyn 3.375 GM Premix 50 ML @ 150 / 150 100 mls/hr IV.SIG Q6H [facility] Rx#: [id number] Vancomycin Inj 1,750 MG In NS 1035.0 / 1035.0 Inj 500 ML @ 258.75 mls/hr IV. SIG Q12H [facility] Rx#:[id number] Narrative: GENERAL: Well-nourished, well-developed obese middle aged male patient in [facility]. SKIN: Warm and dry. See lower extremities below. HEENT: Normocephalic. Atraumatic. Pupils equal and round. Mucous membranes pink and moist. CARDIOVASCULAR: Regular rate and rhythm. No murmur appreciated. RESPIRATORY: No accessory muscle use. Clear to auscultation. Breath sounds equal bilaterally. GASTROINTESTINAL: Abdomen soft, non-tender, nondistended. Normoactive bowel sounds x4. GENITOURINARY: Diffusely edematous and mildly erythematous scrotum, no open wounds, improving. MUSCULOSKELETAL: No obvious deformities. RLE with diffuse erythema, abrasions, 1 + edema, scattered pustules, with 3cm ulcer at right hallux and smaller 1cm ulcer at lateral 5th toe; wounds/cellulitis covered with wound care dressing today, CDI. NEUROLOGICAL: Awake and alert. No obvious cranial nerve deficits. Moving all extremities spontaneously. Normal speech. PSYCHIATRIC: Appropriate mood and affect; insight and judgment normal. . Results - Labs CBC & Chem 7: 08/12/18 07:09 08/12/18 07:09 Laboratory Results - last 24 hr 08/11/18 08/11/18 08/12/18 18:30 22:11 07:09 WBC 9.2 RBC 4.68 Hgb 14.6 Hct 42.9 MCV 91.6 MCH 31.1 MCHC 34.0 RDW 13.6 Plt Count 152 MPV 11.3 H Neut % (Auto) 68.9 Lymph % (Auto) 22.0 [place] % (Auto) 6.8 Eos % (Auto) 1.3 Baso % (Auto) 1.0 Neut # (Auto) 6.3 Lymph # (Auto) 2.0 [place] # (Auto) 0.6 Eos # (Auto) 0.1 Baso # (Auto) 0.1 WBC Differential . Differential Comment Auto diff final Sodium Potassium Chloride Carbon Dioxide Anion Gap BUN Creatinine Estimated GFR POC Glucose 109 113 H Random Glucose Calcium 08/12/18 08/12/18 08/12/18 07:09 08:08 11:16 WBC RBC Hgb Hct MCV MCH MCHC RDW Plt Count MPV Neut % (Auto) Lymph % (Auto) [place] % (Auto) Eos % (Auto) Baso % (Auto) Neut # (Auto) Lymph # (Auto) [place] # (Auto) Eos # (Auto) Baso # (Auto) WBC Differential Differential Comment Sodium 138 Potassium 3.7 Chloride 103 Carbon Dioxide 27.9 Anion Gap 7 BUN 13 Creatinine 1.14 Estimated GFR 67 L POC Glucose 117 H 125 H Random Glucose 122 H Calcium 7.9 L Microbiology 08/09/18 15:30 Blood - Peripheral Aerobic Blood Culture - Preliminary No growth in 3 days 08/09/18 15:30 Blood - Peripheral Anaerobic Blood Culture - Preliminary No growth in 3 days 08/09/18 15:35 Blood - Peripheral Aerobic Blood Culture - Preliminary No growth in 3 days 08/09/18 15:35 Blood - Peripheral Anaerobic Blood Culture - Preliminary No growth in 3 days 08/09/18 15:30 Abscess - Leg Gram Stain - Final 08/09/18 15:30 Abscess - Leg Wound Culture - Preliminary Staphylococcus aureus Group B beta Strep gram negative rods - Imaging Foot X-Ray 08/09/18 15:19 CONCLUSION: 1. Achilles and plantar calcaneal spurring. 2. No acute fracture or dislocation. 3. Mild arthritic changes involving the ankle and midfoot. Venous Doppler Study 08/09/18 15:20 CONCLUSION: 1. No DVT identified. Scrotum Ultrasound 08/09/18 17:20 CONCLUSION: 1. Diffuse extensive scrotal wall thickening, likely infectious. 2. Normal-appearing testicles. 3. Small bilateral hydroceles Myocardial Perfusion Scan Nuc Med 08/11/18 09:03 CONCLUSION: 1. No reversible perfusion abnormalities. 2. Severe LV chamber dilatation and dysfunction - Procedures 08/12/18 - Transesophageal Echocardiogram: Mildly dilated left ventricle. The left ventricular systolic function is severely reduced with an estimated ejection fraction in the range of 20-25%. Assessment and Plan - Plan 53-year-old male with no significant past medical history although has not seen any physician in 25 years, presents with a 2-week history of right lower extremity blisters and cellulitis. 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 Sepsis with Bilateral lower extremity cellulitis and right hallux ulcer: Right worse than left. Meets sepsis criteria with leukocytosis WBC 13.1K, tachycardia HR 141, source-cellulitis. -Foot xray with no acute fracture/dislocation, mild arthritic changes of ankle/midfoot; Achilles and plantar calcaneal spurring -Doppler U/S negative for DVT -Wound culture collected, preliminary with staph aureus, group B strep, and gram negative rods -Blood cultures with NGTD -Continue antibiotics with IV Zosyn and IV Vanco with pharmacy consult -Elevate lower extremities -Consult wound care, appreciate recommendations -Podiatry consulted -Consult infectious disease -sepsis improving, WBC 9.2K today Scrotal Edema, possible Cellulitis: acute, patient reports recent injury to scrotum with subsequent swelling/pain/dysuria. -Scrotum U/S with diffuse extensive scrotal wall thickening, likely infectious; normal testicles, small bilateral hydroceles -continue diuresis with lasix -Already on IV vanco and IV Zosyn as above -UA unremarkable -Scrotal elevation -Consult urology, appreciate recommendations New Onset Systolic CHF: no hx of CHF, patient with anasarca -08/10- Echocardiogram showed EF 25-30%, diffuse global hypokinesis, aortic valve sclerosis with calcification vs possible vegetation, consider CHRISTIAN -08/12- CHRISTIAN negative for vegetation; shows left ventricular systolic function is severely reduced with EF 20-25%. -08/12- Nuclear stress test showed no reversible perfusion abnormalities. Severe LV chamber dilatation and dysfunction -Started on lisinopril, coreg, lasix, aspirin, statin -check lipid panel, LDL 91, started on statin -Consult cardiology, appreciate assistance Hypertension: acute, no prior diagnosis of high blood pressure -started on lisinopril and coreg as above -clonidine prn -monitor BP, adjust antihypertensives as needed Elevated Blood Glucose: BG 127, unknown if fasting BG -check HgbA1c -monitor Accu-checks and cover with SSI for now DVT Prophylaxis: Heparin sq Discharge Planning: Will need cardiology, podiatry, and ID recommendations and clearance prior to discharge.
--- NOTE | 2018-08-12 14:46 | ECG ---
Date Performed: 08/11/2018 Time Performed: 12:52:38 PTAGE: 53 years EKG: Sinus tachycardia BORDERLINE RIGHT AXIS DEVIATION MODERATE INTRAVENTRICULAR CONDUCTION MELISSA Y NONSPECIFIC T-WAVE ABNORMALITY ABNORMAL ECG NO PREVIOUS TRACING DOCTOR: Regis Trivedi Interpretating Date/Time 08/12/2018 14:44:48
--- NOTE | 2018-08-12 16:45 | P.CON ---
History of Present Illness Service: Foot and ankle surgery/podiatry Consult date: 08/12/18 Reason for Consult: Bilateral lower extremity venous stasis ulcers Primary Care Provider: No Primary Care Physician Chief Complaint: R leg infection History of Present Illness: Podiatry consulted for this 53-year-old male with no past medical history for bilateral lower extremity venous stasis ulcerations, who states he has not seen a doctor for over 30 years. Patient states he has tried a multitude of over-the- counter medications however they have not improved his lesions. Patient states he had a blister on his right foot which he had tried popping and noticed purulent drainage. He denies any nausea vomiting fevers or chills. Review of Systems Constitutional: Denies chills, Denies fatigue, Denies fever(s), Denies headache( s), Denies night sweats, Denies weight gain, Denies weight loss Cardiovascular: Denies chest pain, Denies shortness of breath Gastrointestinal: Denies abdominal pain, Denies nausea, Denies vomiting PMFSH - History History Provided By: Patient - Tobacco History Second Hand Smoke Exposure: No Smoking Status: Never smoker - Alcohol History How Often Do You Have a Drink Containing Alcohol: Monthly or less - Substance Use History Substance History: Active Abuse - Substance Use Type Marijuana Status: Active Route Used: Inhalation Frequency: last use a few days ago Reason for Use: Get High - Travel History Recent Travel in the [place] Within the Last 8 Weeks: No Recent Travel Out of the Country Within the Last 8 Weeks: No - Immunization History Tetanus Immunization: >5 Years Medications and Allergies Active Medications: Active Medications Acetaminophen (Tylenol) 650 mg PO Q4H PRN PRN Reason: headache/fever/pain1-5 Hydrocodone Bitart/Acetaminophen ([place] 5/325) 1 tab PO Q6H PRN PRN Reason: pain 6 to 10 Last Admin: 08/12/18 11:12 Dose: 1 tab Al Hydroxide/Mg Hydroxide (Milk Of Magnesia Liq) 30 ml PO Q12H PRN PRN Reason: Mild Constipation Aspirin (Ecotrin) 81 mg PO DAILY [facility] Last Admin: 08/12/18 08:05 Dose: 81 mg Atorvastatin Calcium (Lipitor) 40 mg PO DAILY [facility] Last Admin: 08/12/18 08:05 Dose: 40 mg Bisacodyl (Dulcolax Supp) 10 mg RECTAL DAILY PRN PRN Reason: SEVERE CONSITIPATION Carvedilol (Coreg) 25 mg PO BID [facility] Clonidine HCl (Catapres) 0.1 mg PO Q6H PRN PRN Reason: HYPERTENSION Dextrose (D50w Vial) 50 ml IV.PUSH UNSCH PRN PRN Reason: PER HYPOGLYCEMIA PROTOCOL Furosemide (Lasix Inj) 40 mg IV.PUSH BID@0900,1800 [facility] Glucagon (Glucagon Inj) 1 mg OTHER PRN PRN PRN Reason: for Hypoglycemia Protocol Heparin Sodium (Porcine) (Heparin Inj) 5,000 units SQ Q8HR [facility] Last Admin: 08/12/18 15:30 Dose: 5,000 units Piperacillin/Tazobactam/Dextrose (Zosyn 3.375 Gm Premix) 50 mls @ 100 mls/hr IV.SIG Q6H [facility] Last Admin: 08/12/18 15:30 Dose: 50 mls/hr Insulin Aspart (Novolog Insulin Correctional Sugar Inj) 0 unit SQ ACHS [facility]; Protocol Last Admin: 08/12/18 11:18 Dose: Not Given Lactulose (Lactulose Liq) 30 ml PO DAILY PRN PRN Reason: SEVERE CONSITIPATION Lisinopril (Prinivil) 5 mg PO DAILY [facility] Last Admin: 08/12/18 08:05 Dose: 5 mg Miscellaneous Information ([facility] Ordered Lab Info) 0 each OTHER ONCE ONE Stop: 08/13/18 00:46 Ondansetron HCl (Zofran Inj) 4 mg IV.PUSH Q6H PRN PRN Reason: NAUSEA OR VOMITING Senna/Docusate Sodium (Magy-Colace) 1 tab PO BID [facility] Last Admin: 08/12/18 08:05 Dose: 1 tab Sennosides (Senokot) 17.2 mg PO Q12H PRN PRN Reason: Moderate Constipation Sodium Chloride (Ns Flush) 2 ml IV.FLUSH PRN PRN PRN Reason: FLUSH AFTER USING IV ACCESS Allergies Allergy/AdvReac Type Severity Reaction Status Date / Time No Known Allergies Allergy Verified 08/09/18 15:47 Home Medications Medication Instructions Recorded Confirmed Type No Known Home Medications 08/09/18 08/09/18 History Physical Exam Vital signs: Vital Signs 08/11/18 20:00 08/11/18 23:53 11/29/18 04:00 Temperature 98.5 F 97.7 F 97.6 F Pulse Rate 132 H 105 H 92 H Respiratory Rate 20 20 18 Blood Pressure 145/100 H 123/65 158/62 H Pulse Oximetry 94 L 94 L 08/12/18 08:00 08/12/18 12:00 08/12/18 16:00 Temperature 97.5 F L 97.6 F Pulse Rate 111 H 93 H 126 H Respiratory Rate 18 18 19 Blood Pressure 151/97 H 111/88 99/57 L Pulse Oximetry 94 L 93 L 94 L Intake & Output 08/11/18 08/12/18 08/12/18 18:59 06:59 18:59 Intake Total 1185.0 / 1185.0 50 / 50 Balance 1185.0 / 1185.0 50 / 50 Intake: IV 1185.0 / 1185.0 50 / 50 Zosyn 3.375 GM Premix 50 ML @ 150 / 150 50 / 50 100 mls/hr IV.SIG Q6H [facility] Rx#: [id number] Vancomycin Inj 1,750 MG In NS 1035.0 / 1035.0 Inj 500 ML @ 258.75 mls/hr IV. SIG Q12H [facility] Rx#:[id number] Narrative: GENERAL: This is a well-nourished, well-developed patient, in no apparent distress. SKIN: Bilateral lower extremity venous stasis ulcerations HEAD: Atraumatic. EYES: Pupils equal round and reactive. ENT: Airway patent. NECK: Trachea midline. RESPIRATORY: Nonlabored breathing. MUSCULOSKELETAL:. Negative Homans sign bilaterally. NEUROLOGICAL: Awake and alert. Normal speech. Lower extremity physical exam: Vascular: Dorsalis pedis nonpalpable, posterior tibial nonpalpable. Capillary refill time within normal limits to digits x5 bilateral foot. Edema present to bilateral lower extremity right greater than left. Neuro: Gross sensation intact to bilateral lower extremity. Pinpoint sensation decreased. No hyperalgesia noted to bilateral lower extremity Dermatology: Increased erythema and edema noted to right lower extremity with multiple venous stasis ulcerations superficial in nature and circumferential to right lower extremity. Left lower extremity venous stasis ulcerations noted to anterior tibia. Musculoskeletal: Tender to palpation to bilateral lower extremities at ulceration sites. Results - Labs CBC & Chem 7: 08/12/18 07:09 08/12/18 07:09 Labs: Laboratory Results - last 24 hr 08/11/18 08/11/18 08/12/18 18:30 22:11 07:09 WBC 9.2 RBC 4.68 Hgb 14.6 Hct 42.9 MCV 91.6 MCH 31.1 MCHC 34.0 RDW 13.6 Plt Count 152 MPV 11.3 H Neut % (Auto) 68.9 Lymph % (Auto) 22.0 [place] % (Auto) 6.8 Eos % (Auto) 1.3 Baso % (Auto) 1.0 Neut # (Auto) 6.3 Lymph # (Auto) 2.0 [place] # (Auto) 0.6 Eos # (Auto) 0.1 Baso # (Auto) 0.1 WBC Differential . Differential Comment Auto diff final Sodium Potassium Chloride Carbon Dioxide Anion Gap BUN Creatinine Estimated GFR POC Glucose 109 113 H Random Glucose Calcium 08/12/18 08/12/18 08/12/18 07:09 08:08 11:16 WBC RBC Hgb Hct MCV MCH MCHC RDW Plt Count MPV Neut % (Auto) Lymph % (Auto) [place] % (Auto) Eos % (Auto) Baso % (Auto) Neut # (Auto) Lymph # (Auto) [place] # (Auto) Eos # (Auto) Baso # (Auto) WBC Differential Differential Comment Sodium 138 Potassium 3.7 Chloride 103 Carbon Dioxide 27.9 Anion Gap 7 BUN 13 Creatinine 1.14 Estimated GFR 67 L POC Glucose 117 H 125 H Random Glucose 122 H Calcium 7.9 L - Imaging Impressions Myocardial Perfusion Scan Nuc Med 08/11/18 09:03 CONCLUSION: 1. No reversible perfusion abnormalities. 2. Severe LV chamber dilatation and dysfunction Assessment and Plan - Plan 53-year-old male with bilateral venous stasis ulcerations, right lower extremity cellulitis Patient examined and evaluated with all questions answered Will place wound care orders Awaiting ABIs to determine vascular status If ABIs normal okay to proceed with Unna boots, to be placed by wound care Continue IV antibiotics Elevate bilateral lower extremities No surgical intervention planned Will continue with conservative care
[2018-08-12 17:13] LABS: Hemoglobin A1c 6.4 % (4.3-6.0)
--- NOTE | 2018-08-12 18:22 | ECHRPT ---
EXAM DATE: 08/12/2018 6:13 PM EST AGE/SEX: 53 years / Male INDICATIONS: Acute cellulitis bilateral legs CLINICAL DATA: This is the patient's initial encounter. Patient reports that signs and symptoms have been present for 2 months and indicates a pain score of 1/10. MEDICAL/SURGICAL HISTORY: . acute cellulitis bilateral legs, venous stasis None. COMPARISON: No prior exams available for comparison. TECHNIQUE: Four-cuff ankle and brachial pressures were obtained. Pulse cuff waveform tracings of the ankles were recorded, and ankle-brachial indices were calculated. PRESSURES (mmHg): Brachial (arm) : RIGHT: 131, LEFT: IV SITE Ankle : RIGHT: 165, LEFT: 157 TIM : RIGHT: 1.26, LEFT: 1.20 TBI : RIGHT: 0.73, LEFT: 0.83 FINDINGS: Pulsed-Cuff Waveform: There are good upstroke and a dicrotic downstroke of the tracings. Other: None. CONCLUSION: 1. Normal ankle brachial indexes. Electronically signed by: Alfredo Contreras MD 08/12/2018 6:21 PM EST
[2018-08-13] MEDS ORDERED: Pharmacy Ordered Lab Info OTHER ONE (00:45)
[2018-08-13] MEDS: Piperacil/Tazo 3.375 GM Premix 50 ML IV.SIG SCH ×4 (03:48→23:26)
[2018-08-13] MEDS: Heparin - SQ 10,000 UNITS/ML Vial SQ SCH (05:42)
[2018-08-13] MEDS: Senna/Docusate Sodium 8.6/50 MG Tablet PO SCH ×2 (08:15→22:37)
[2018-08-13] MEDS: Carvedilol 6.25 MG Tablet PO SCH ×2 (08:16→22:36)
[2018-08-13] MEDS: Lisinopril 5 MG Tablet PO SCH (08:17)
[2018-08-13] MEDS: Insulin NovoLOG Aspart Correctional Sugar Inj SQ SCH ×4 (08:49→22:36)
--- NOTE | 2018-08-13 08:56 | P.PNCA ---
Subjective Interval history: patient states he is feeling well. scrotal swelling decreasing. No chest pain, sob or palpitations. Medications and Allergies Active Medications: Active Medications Acetaminophen (Tylenol) 650 mg PO Q4H PRN PRN Reason: headache/fever/pain1-5 Hydrocodone Bitart/Acetaminophen ([place] 5/325) 1 tab PO Q6H PRN PRN Reason: pain 6 to 10 Last Admin: 08/12/18 21:51 Dose: 1 tab Al Hydroxide/Mg Hydroxide (Milk Of Magnesia Liq) 30 ml PO Q12H PRN PRN Reason: Mild Constipation Aspirin (Ecotrin) 81 mg PO DAILY [facility] Last Admin: 08/13/18 08:15 Dose: 81 mg Atorvastatin Calcium (Lipitor) 40 mg PO DAILY [facility] Last Admin: 08/13/18 08:15 Dose: 40 mg Bisacodyl (Dulcolax Supp) 10 mg RECTAL DAILY PRN PRN Reason: SEVERE CONSITIPATION Carvedilol (Coreg) 25 mg PO BID [facility] Last Admin: 08/13/18 08:16 Dose: 25 mg Clonidine HCl (Catapres) 0.1 mg PO Q6H PRN PRN Reason: HYPERTENSION Dextrose (D50w Vial) 50 ml IV.PUSH UNSCH PRN PRN Reason: PER HYPOGLYCEMIA PROTOCOL Furosemide (Lasix Inj) 40 mg IV.PUSH BID@0900,1800 [facility] Last Admin: 08/13/18 08:16 Dose: 40 mg Glucagon (Glucagon Inj) 1 mg OTHER PRN PRN PRN Reason: for Hypoglycemia Protocol Heparin Sodium (Porcine) (Heparin Inj) 5,000 units SQ Q8HR [facility] Last Admin: 08/13/18 05:42 Dose: 5,000 units Piperacillin/Tazobactam/Dextrose (Zosyn 3.375 Gm Premix) 50 mls @ 100 mls/hr IV.SIG Q6H [facility] Last Infusion: 08/13/18 04:22 Dose: Infused Insulin Aspart (Novolog Insulin Correctional Sugar Inj) 0 unit SQ ACHS [facility]; Protocol Last Admin: 08/13/18 08:49 Dose: Not Given Lactulose (Lactulose Liq) 30 ml PO DAILY PRN PRN Reason: SEVERE CONSITIPATION Lisinopril (Prinivil) 5 mg PO DAILY [facility] Last Admin: 08/13/18 08:17 Dose: 5 mg Ondansetron HCl (Zofran Inj) 4 mg IV.PUSH Q6H PRN PRN Reason: NAUSEA OR VOMITING Senna/Docusate Sodium (Magy-Colace) 1 tab PO BID [facility] Last Admin: 08/13/18 08:15 Dose: 1 tab Sennosides (Senokot) 17.2 mg PO Q12H PRN PRN Reason: Moderate Constipation Sodium Chloride (Ns Flush) 2 ml IV.FLUSH PRN PRN PRN Reason: FLUSH AFTER USING IV ACCESS Allergies Allergy/AdvReac Type Severity Reaction Status Date / Time No Known Allergies Allergy Verified 08/09/18 15:47 Home Medications Medication Instructions Recorded Confirmed Type No Known Home Medications 08/09/18 08/09/18 History Physical Exam Vital signs: Vital Signs 08/12/18 12:00 08/12/18 16:00 08/12/18 20:00 Temperature 97.6 F 97.8 F Pulse Rate 93 H 126 H 96 H Respiratory Rate 18 19 22 Blood Pressure 111/88 99/57 L 118/67 Pulse Oximetry 93 L 94 L 94 L 08/13/18 00:00 08/13/18 04:00 Temperature 97.4 F L 97.8 F Pulse Rate 92 H 70 Respiratory Rate 22 22 Blood Pressure 102/52 L 105/62 Pulse Oximetry 96 94 L Intake & Output 08/12/18 08/13/18 08/13/18 18:59 06:59 18:59 Intake Total 100 / 100 700 / 700 Output Total 450 / 450 300 / 300 Balance 100 / 100 250 / 250 -300 / -300 Intake: IV 100 / 100 100 / 100 Zosyn 3.375 GM Premix 50 ML @ 100 / 100 100 / 100 100 mls/hr IV.SIG Q6H [facility] Rx#: [id number] Oral 600 / 600 Output: Urine 450 / 450 300 / 300 Other: # Voids 3 Narrative: GENERAL: morbidly obese WM SKIN: Warm and dry. HEAD: Normocephalic. EYES: No scleral icterus. No injection or drainage. NECK: Supple, trachea midline. No JVD or lymphadenopathy. CARDIOVASCULAR: Regular rate and rhythm without murmurs, gallops, or rubs. bilateral LE edema with venous stasis ulcers RESPIRATORY: Breath sounds equal bilaterally. No accessory muscle use. GASTROINTESTINAL: Abdomen soft, non-tender, nondistended. . Results 08/12/18 07:09 08/13/18 07:47 Cardiac Enzymes 08/11/18 Range/Units 09:38 B-Natriuretic Peptide 255 H (0-100) pg/mL Coagulation 08/11/18 Range/Units 09:38 B-Natriuretic Peptide 255 H (0-100) pg/mL Lipids 08/11/18 08/11/18 Range/Units 09:38 09:38 Triglycerides 129 Cancelled (42-150) mg/dL Cholesterol 149 Cancelled (120-200) mg/dL HDL Cholesterol 31.8 L Cancelled (40.0-60.0) mg/dL Cholesterol/HDL Ratio 4.68 Cancelled Ratio CBC 08/11/18 08/12/18 Range/Units 09:35 07:09 WBC 10.4 9.2 (4.0-11.0) th/mm3 RBC 4.88 4.68 (4.50-5.90) mil/mm3 Hgb 14.9 14.6 (13.0-17.0) gm/dL Hct 44.3 42.9 (39.0-51.0) % Plt Count 154 152 (150-450) th/mm3 Neut # (Auto) 7.7 6.3 (1.8-7.7) th/mm3 Lymph # (Auto) 1.8 2.0 (1.0-4.8) th/mm3 [place] # (Auto) 0.7 0.6 (0.0-0.9) th/mm3 Eos # (Auto) 0.1 0.1 (0.0-0.4) th/mm3 Baso # (Auto) 0.1 0.1 (0.0-0.2) th/mm3 Comprehensive Metabolic Panel 08/11/18 08/12/18 08/13/18 Range/Units 09:38 07:09 07:47 Sodium 136 138 (136-145) meq/L Potassium 3.8 3.7 (3.5-5.1) meq/L Chloride 105 103 (98-107) meq/L Carbon Dioxide 22.4 27.9 (21.0-32.0) meq/L BUN 13 13 (7-18) mg/dL Creatinine 1.03 1.14 1.18 (0.60-1.30) mg/dL Calcium 8.2 L 7.9 L (8.5-10.1) mg/dL Intake and Output 08/12/18 08/13/18 08/13/18 22:59 06:59 14:59 Intake Total 100 / 100 650 / 650 Output Total 450 / 450 300 / 300 Balance 100 / 100 200 / 200 -300 / -300 Intake: IV 100 / 100 50 / 50 Zosyn 3.375 GM Premix 50 ML @ 100 / 100 50 / 50 100 mls/hr IV.SIG Q6H [facility] Rx#: [id number] Oral 600 / 600 Output: Urine 450 / 450 300 / 300 Other: # Voids 3 - Imaging and Cardiology Imaging: Impressions Myocardial Perfusion Scan Nuc Med 08/11/18 09:03 CONCLUSION: 1. No reversible perfusion abnormalities. 2. Severe LV chamber dilatation and dysfunction Extremity Arterial Study 08/12/18 00:00 CONCLUSION: 1. Normal ankle brachial indexes. Assessment and Plan - Assessment (1) Cardiomyopathy Code(s): I42.9 - Cardiomyopathy, unspecified Status: Acute (2) Vegetation of heart valve Code(s): I33.0 - Acute and subacute infective endocarditis Status: Acute - Plan 53 yo morbidly obese WM with no prior cardiac history who presents with R leg swelling and skin infection x several weeks. EF found to be 25%. nonischemic cardiomyopathy- EF 25% lexiscan did not demonstrate ischemia, CHRISTIAN normal, no vegetations BP will not allow titration of lisinopril at this time. continue carvedilol 25mg BID, lisinopril 5mg, atorvastatin 40mg, asa 81mg continue diuresis arrhythmia on auscultation today- assess with EKG will require follow up with outpatient agricultural economics professor (recommend Dr. De La Rosa). Patient in the process of obtaining medical assistance will need follow up echo in approx 3 months; may require ICD will sign off, contact with questions
--- NOTE | 2018-08-13 12:47 | P.PN ---
Subjective Interval history: Follow up for cellulitis, CHF, scrotal edema, now with new aflutter. Patient is seen with field radio technician at bedside. The patient reports feeling better again today. He reports less erythema/edema throughout his legs, and his scrotal edema has also significant improved. Denies fevers/chills overnight. EKG this morning showed aflutter. He denies any chest pain, palpitations, or shortness of breath. Physical Exam Vital signs: Vital Signs 08/12/18 16:00 08/12/18 20:00 08/13/18 00:00 Temperature 97.6 F 97.8 F 97.4 F L Pulse Rate 126 H 96 H 92 H Respiratory Rate 19 22 22 Blood Pressure 99/57 L 118/67 102/52 L Pulse Oximetry 94 L 94 L 96 08/13/18 04:00 08/13/18 08:00 Temperature 97.8 F 97.5 F L Pulse Rate 70 64 Respiratory Rate 22 18 Blood Pressure 105/62 111/78 Pulse Oximetry 94 L 107 H Intake & Output 08/12/18 08/13/18 08/13/18 18:59 06:59 18:59 Intake Total 100 / 100 700 / 700 50 / 50 Output Total 450 / 450 300 / 300 Balance 100 / 100 250 / 250 -250 / -250 Intake: IV 100 / 100 100 / 100 50 / 50 Zosyn 3.375 GM Premix 50 ML @ 100 / 100 100 / 100 50 / 50 100 mls/hr IV.SIG Q6H VICKI Rx#: [id number] Oral 600 / 600 Output: Urine 450 / 450 300 / 300 Other: # Voids 3 Narrative: GENERAL: Well-nourished, well-developed obese middle aged male patient in [facility]. SKIN: Warm and dry. See lower extremities below. HEENT: Normocephalic. Atraumatic. Pupils equal and round. Mucous membranes pink and moist. CARDIOVASCULAR: Irregular rate and rhythm. No murmur appreciated. RESPIRATORY: No accessory muscle use. Clear to auscultation. Breath sounds equal bilaterally. GASTROINTESTINAL: Abdomen soft, non-tender, nondistended. Normoactive bowel sounds x4. GENITOURINARY: Scrotum edematous, improving. MUSCULOSKELETAL: No obvious deformities. RLE with diffuse erythema, abrasions, 1 + edema, scattered pustules, with 3cm ulcer at right hallux and smaller ulceration at dorsal lateral foot; wounds/cellulitis covered with wound care dressing today, CDI; overall cellulitis improving. NEUROLOGICAL: Awake and alert. No obvious cranial nerve deficits. Moving all extremities spontaneously. Normal speech. PSYCHIATRIC: Appropriate mood and affect; insight and judgment normal. Results - Labs CBC & Chem 7: 08/12/18 07:09 08/13/18 07:47 Laboratory Results - last 24 hr 08/10/18 08/12/18 08/12/18 19:23 17:08 21:49 Creatinine Estimated GFR POC Glucose 102 107 Hemoglobin A1c 6.4 H 08/13/18 08/13/18 08/13/18 07:47 08:48 12:08 Creatinine 1.18 Estimated GFR 64 L POC Glucose 124 H 156 H Hemoglobin A1c Microbiology 08/09/18 15:30 Blood - Peripheral Aerobic Blood Culture - Preliminary No growth in 4 days 08/09/18 15:30 Blood - Peripheral Anaerobic Blood Culture - Preliminary No growth in 4 days 08/09/18 15:35 Blood - Peripheral Aerobic Blood Culture - Preliminary No growth in 4 days 08/09/18 15:35 Blood - Peripheral Anaerobic Blood Culture - Preliminary No growth in 4 days 08/09/18 15:30 Abscess - Leg Gram Stain - Final 08/09/18 15:30 Abscess - Leg Wound Culture - Preliminary Staphylococcus aureus Group B beta Strep gram negative rods - Imaging Impressions Extremity Arterial Study 08/12/18 00:00 CONCLUSION: 1. Normal ankle brachial indexes. - Procedures 08/12/18 - Transesophageal Echocardiogram: Mildly dilated left ventricle. The left ventricular systolic function is severely reduced with an estimated ejection fraction in the range of 20-25%. Assessment and Plan - Plan 53-year-old male with no significant past medical history although has not seen any physician in 25 years, presents with a 2-week history of right lower extremity blisters and cellulitis. 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 Sepsis with Bilateral lower extremity cellulitis and right hallux ulcer: Right worse than left. Meets sepsis criteria with leukocytosis WBC 13.1K, tachycardia HR 141, source-cellulitis. -Foot xray with no acute fracture/dislocation, mild arthritic changes of ankle/midfoot; Achilles and plantar calcaneal spurring -Doppler U/S negative for DVT -Wound culture collected, preliminary with staph aureus, group B strep, and gram negative rods -Blood cultures with NGTD -Continue antibiotics with IV Zosyn and IV Vanco with pharmacy consult -Elevate lower extremities -Consult wound care, appreciate recommendations -Podiatry consulted, no surgical intervention, recommended wound care and unna boots -Consult infectious disease -sepsis improving, WBC 9.2K Scrotal Edema, possible Cellulitis: acute, patient reports recent injury to scrotum with subsequent swelling/pain/dysuria. -Scrotum U/S with diffuse extensive scrotal wall thickening, likely infectious; normal testicles, small bilateral hydroceles -continue diuresis with lasix -Already on IV vanco and IV Zosyn as above -UA unremarkable -Scrotal elevation -Consult urology, appreciate recommendations -improving New Onset Systolic CHF: no hx of CHF, patient with anasarca -08/10- Echocardiogram showed EF 25-30%, diffuse global hypokinesis, aortic valve sclerosis with calcification vs possible vegetation, consider CHRISTIAN -08/12- CHRISTIAN negative for vegetation; shows left ventricular systolic function is severely reduced with EF 20-25%. -08/12- Nuclear stress test showed no reversible perfusion abnormalities. Severe LV chamber dilatation and dysfunction -Started on lisinopril, coreg, aspirin, statin -continue diuresis with IV Lasix 40mg bid -lipid panel with LDL 91, started on statin -Consult cardiology, appreciate assistance Atrial Flutter: seen on EKG today 08/13 -on Coreg as above -started on anticoagulation with Eliquis -cardiology following, plans for possible cardioversion tomorrow 08/14 Hypertension: acute, no prior diagnosis of high blood pressure -started on lisinopril and coreg as above -clonidine prn -monitor BP, adjust antihypertensives as needed Elevated Blood Glucose: BG 127, unknown if fasting BG -monitor Accu-checks and cover with SSI for now -HgbA1c 6.4, recommend diet control and weight reduction -will need repeat A1c in 3 months DVT Prophylaxis: Eliquis Discharge Planning: Possible cardioversion tomorrow 08/14. Will need cardiology and ID recommendations and clearance prior to discharge. Patient will also need assistance with medications and arrangements for outpatient wound care prior to discharge. Case management to assist with discharge planning.
[2018-08-13] MEDS: Digoxin 250 MCG Tablet PO SCH (13:09)
--- NOTE | 2018-08-13 14:00 | ECG ---
Date Performed: 08/13/2018 Time Performed: 09:45:16 PTAGE: 53 years EKG: ATRIAL FLUTTER/TACHYCARDIA INTRAVENTRICULAR CONDUCTION DELAY POSSIBLE ANTERIOR MYOCARDIAL I NFARCTION , OF INDETERMINATE AGE Atrial flutter replaces sinus tachycardia. There is also some loss o f R wave V4,V5- clinical correlation recommended ABNORMAL ECG PREVIOUS TRACING : 08/11/2018 12.52 DOCTOR: Manuel Sahu Interpretating Date/Time 08/13/2018 13:54:02
--- NOTE | 2018-08-13 14:25 | P.PNWCN ---
Wound Care Nurse Consult Description: Received wound management consult for unna boot application if ABIs are normal from Doctor Norm. Communicated with: NURYS [place] [address] Recommendation: Please leave Bauer/unna boots in place until Thursday and wound care nurse will change. Additional information: Patient seen today for bilateral lower leg unna boot placement as ordered by podiatry if ABIs are ok. Patient's ABIs are safe for high compression. Removed dressing in place to R lower leg to reveal diffuse wounds. Patient also has three small wounds on L lower leg that were not noted on initial assessment. Wounds to L lower leg are open to air with the largest measuring ~2cm x ~2cm x ~ 0.2cm. All open wounds were cleansed with normal saline on BLE and patted dry. Applied Foam gentle AG 8x8 dressing cut to fit over all open wounds to BLE. Applied new foam gentle AG cut fit over R great toe wound and R dorsal foot wound. Secured R great toe dressing with toe rolled gauze and tape. Applied unna boot wrap securing dressings in place form just behind the toes to two finger widths below the bend of the knee,on BLE. Then applied rolled gauze over unna boot wrap. Finally 4 inch Coban was applied from just behind the toes to two finger width below the knee in a spiral fashion. Patient tolerated wrap well. Will see patient on Thursday for Bauer/unna boot dressing change.
[2018-08-13] MEDS ORDERED: Influenza (Quadrivalent) Vaccine 0.5 ML Syringe IM ONE (15:00)
[2018-08-14] MEDS: Piperacil/Tazo 3.375 GM Premix 50 ML IV.SIG SCH ×4 (05:06→22:00)
[2018-08-14] MEDS: Insulin NovoLOG Aspart Correctional Sugar Inj SQ SCH ×4 (08:16→20:44)
[2018-08-14] MEDS: Lisinopril 5 MG Tablet PO SCH (08:51)
[2018-08-14] MEDS: Digoxin 250 MCG Tablet PO SCH (08:52)
[2018-08-14] MEDS: Senna/Docusate Sodium 8.6/50 MG Tablet PO SCH ×2 (08:53→20:45)
[2018-08-14] MEDS: Carvedilol 6.25 MG Tablet PO SCH ×2 (08:56→20:44)
--- NOTE | 2018-08-14 09:28 | P.PN ---
Subjective Interval history: Follow-up CHF. No SOB awaiting card for possible cardioversion Physical Exam Vital signs: Vital Signs 08/13/18 13:40 08/13/18 16:00 08/13/18 19:59 Temperature 97.3 F L 96.8 F L 97.9 F Pulse Rate 98 H 87 88 Respiratory Rate 18 17 20 Blood Pressure 105/63 120/69 118/71 Pulse Oximetry 96 95 97 08/14/18 00:00 Temperature 97.4 F L Pulse Rate 103 H Respiratory Rate 22 Blood Pressure 102/49 L Pulse Oximetry 95 Intake & Output 08/13/18 08/14/18 08/14/18 18:59 06:59 18:59 Intake Total 50 / 50 1110 / 1110 Output Total 300 / 300 Balance -250 / -250 1110 / 1110 Intake: IV 50 / 50 150 / 150 Zosyn 3.375 GM Premix 50 ML @ 50 / 50 150 / 150 100 mls/hr IV.SIG Q6H VICKI Rx#: [id number] Oral 960 / 960 Output: Urine 300 / 300 Other: # Voids 4 Date of Last Bowel Movement 08/13/18 Narrative: GENERAL: Well-nourished, well-developed obese middle aged male patient in [facility]. SKIN: Warm and dry. See lower extremities below. CARDIOVASCULAR: Irregular rate and rhythm. No murmur appreciated. RESPIRATORY: No accessory muscle use. Clear to auscultation. Breath sounds equal bilaterally. GASTROINTESTINAL: Abdomen soft, non-tender, nondistended. Normoactive bowel sounds x4. GENITOURINARY: Scrotum edematous, improving. MUSCULOSKELETAL: No obvious deformities. RLE with unna boots NEUROLOGICAL: Awake and alert. No obvious cranial nerve deficits. Moving all extremities spontaneously. Normal speech. PSYCHIATRIC: Appropriate mood and affect; insight and judgment normal. Results - Labs CBC & Chem 7: 08/12/18 07:09 08/13/18 07:47 Laboratory Results - last 24 hr 08/13/18 08/13/18 08/13/18 12:08 17:15 22:35 POC Glucose 156 H 111 H 239 H 08/14/18 08:09 POC Glucose 124 H Microbiology 08/09/18 15:30 Abscess - Leg Gram Stain - Final 08/09/18 15:30 Abscess - Leg Wound Culture - Final Staphylococcus aureus Group B beta Strep Alcaligenes faecalis 08/09/18 15:30 Blood - Peripheral Aerobic Blood Culture - Preliminary No growth in 4 days 08/09/18 15:30 Blood - Peripheral Anaerobic Blood Culture - Preliminary No growth in 4 days 08/09/18 15:35 Blood - Peripheral Aerobic Blood Culture - Preliminary No growth in 4 days 08/09/18 15:35 Blood - Peripheral Anaerobic Blood Culture - Preliminary No growth in 4 days - Imaging ITS Impressions Foot X-Ray 08/09/18 15:19 CONCLUSION: 1. Achilles and plantar calcaneal spurring. 2. No acute fracture or dislocation. 3. Mild arthritic changes involving the ankle and midfoot. Venous Doppler Study 08/09/18 15:20 CONCLUSION: 1. No DVT identified. Scrotum Ultrasound 08/09/18 17:20 CONCLUSION: 1. Diffuse extensive scrotal wall thickening, likely infectious. 2. Normal-appearing testicles. 3. Small bilateral hydroceles Myocardial Perfusion Scan Nuc Med 08/11/18 09:03 CONCLUSION: 1. No reversible perfusion abnormalities. 2. Severe LV chamber dilatation and dysfunction Extremity Arterial Study 08/12/18 00:00 CONCLUSION: 1. Normal ankle brachial indexes. - Procedures 08/12/18 - Transesophageal Echocardiogram: Mildly dilated left ventricle. The left ventricular systolic function is severely reduced with an estimated ejection fraction in the range of 20-25%. Assessment and Plan - Plan 53-year-old male with no significant past medical history although has not seen any physician in 25 years, presents with a 2-week history of right lower extremity blisters and cellulitis. 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 Sepsis with Bilateral lower extremity cellulitis and right hallux ulcer: Right worse than left. Meets sepsis criteria with leukocytosis WBC 13.1K, tachycardia HR 141, source-cellulitis. -Foot xray with no acute fracture/dislocation, mild arthritic changes of ankle/midfoot; Achilles and plantar calcaneal spurring -Doppler U/S negative for DVT -Wound culture collected, preliminary with staph aureus, group B strep, and gram negative rods -Blood cultures with NGTD -Continue antibiotics with IV Zosyn -Elevate lower extremities -Consult wound care, appreciate recommendations -Podiatry consulted, no surgical intervention, recommended wound care and unna boots -Consult infectious disease -sepsis improving, WBC 9.2K Scrotal Edema, possible Cellulitis: acute, patient reports recent injury to scrotum with subsequent swelling/pain/dysuria. -Scrotum U/S with diffuse extensive scrotal wall thickening, likely infectious; normal testicles, small bilateral hydroceles -continue diuresis with lasix -Already on IV IV Zosyn as above -UA unremarkable -Scrotal elevation -improving New Onset Systolic CHF, nonischemic: no hx of CHF, patient with anasarca -08/10- Echocardiogram showed EF 25-30%, diffuse global hypokinesis, aortic valve sclerosis with calcification vs possible vegetation, consider CHRISTIAN -08/12- CHRISTIAN negative for vegetation; shows left ventricular systolic function is severely reduced with EF 20-25%. -08/12- Nuclear stress test showed no reversible perfusion abnormalities. Severe LV chamber dilatation and dysfunction -Started on lisinopril, coreg, aspirin, statin -continue diuresis with IV Lasix 40mg bid -lipid panel with LDL 91, started on statin -Consult cardiology, appreciate assistance- anticoagulation with Eliquis 5mg BID and add digoxin 250mcg daily. Keep npo after midnight for possible cardioversion. Repeat echo in 3 months may need ICD. patient case manager for [facility] Atrial Flutter: seen on EKG 08/13 -on Coreg as above -started on anticoagulation with Eliquis -cardiology following, plans for possible cardioversion CHRISTIAN no clots Hypertension: acute, no prior diagnosis of high blood pressure -started on lisinopril and coreg as above -clonidine prn -monitor BP, adjust antihypertensives as needed Elevated Blood Glucose: BG 127, unknown if fasting BG -monitor Accu-checks and cover with SSI for now -HgbA1c 6.4, recommend diet control and weight reduction -will need repeat A1c in 3 months DVT Prophylaxis: Eliquis Discharge Planning: Possible cardioversion. Will need cardiology and ID recommendations and clearance prior to discharge. Patient will also need assistance with medications and arrangements for outpatient wound care prior to discharge. Case management to assist with discharge planning.
--- NOTE | 2018-08-14 17:01 | P.PNCA ---
Subjective Interval history: Sitting up in chair, watching TV. NO chest pain, no palpitation no dyspnea Medications and Allergies Active Medications: Active Medications Acetaminophen (Tylenol) 650 mg PO Q4H PRN PRN Reason: headache/fever/pain1-5 Hydrocodone Bitart/Acetaminophen ([place] 5/325) 1 tab PO Q6H PRN PRN Reason: pain 6 to 10 Last Admin: 08/14/18 05:06 Dose: 1 tab Al Hydroxide/Mg Hydroxide (Milk Of Magnesia Liq) 30 ml PO Q12H PRN PRN Reason: Mild Constipation Apixaban (Eliquis) 5 mg PO BID [facility] Last Admin: 08/14/18 08:52 Dose: Not Given Aspirin (Ecotrin) 81 mg PO DAILY [facility] Last Admin: 08/14/18 08:52 Dose: Not Given Atorvastatin Calcium (Lipitor) 40 mg PO DAILY [facility] Last Admin: 08/14/18 08:51 Dose: 40 mg Bisacodyl (Dulcolax Supp) 10 mg RECTAL DAILY PRN PRN Reason: SEVERE CONSITIPATION Carvedilol (Coreg) 25 mg PO BID [facility] Last Admin: 08/14/18 08:56 Dose: Not Given Clonidine HCl (Catapres) 0.1 mg PO Q6H PRN PRN Reason: HYPERTENSION Dextrose (D50w Vial) 50 ml IV.PUSH UNSCH PRN PRN Reason: PER HYPOGLYCEMIA PROTOCOL Digoxin (Lanoxin) 250 mcg PO DAILY [facility] Last Admin: 08/14/18 08:52 Dose: 250 mcg Furosemide (Lasix Inj) 40 mg IV.PUSH BID@0900,1800 [facility] Last Admin: 08/14/18 08:53 Dose: 40 mg Glucagon (Glucagon Inj) 1 mg OTHER PRN PRN PRN Reason: for Hypoglycemia Protocol Piperacillin/Tazobactam/Dextrose (Zosyn 3.375 Gm Premix) 50 mls @ 100 mls/hr IV.SIG Q6H [facility] Last Infusion: 08/14/18 11:07 Dose: Infused Insulin Aspart (Novolog Insulin Correctional Sugar Inj) 0 unit SQ [facility]; Protocol Last Admin: 08/14/18 12:42 Dose: Not Given Lactulose (Lactulose Liq) 30 ml PO DAILY PRN PRN Reason: SEVERE CONSITIPATION Lisinopril (Prinivil) 5 mg PO DAILY [facility] Last Admin: 08/14/18 08:51 Dose: 5 mg Ondansetron HCl (Zofran Inj) 4 mg IV.PUSH Q6H PRN PRN Reason: NAUSEA OR VOMITING Senna/Docusate Sodium (Magy-Colace) 1 tab PO BID VICKI Last Admin: 08/14/18 08:53 Dose: Not Given Sennosides (Senokot) 17.2 mg PO Q12H PRN PRN Reason: Moderate Constipation Sodium Chloride (Ns Flush) 2 ml IV.FLUSH PRN PRN PRN Reason: FLUSH AFTER USING IV ACCESS Allergies Allergy/AdvReac Type Severity Reaction Status Date / Time No Known Allergies Allergy Verified 08/09/18 15:47 Home Medications Medication Instructions Recorded Confirmed Type No Known Home Medications 08/09/18 08/09/18 History Physical Exam Vital signs: Vital Signs 08/13/18 19:59 08/14/18 00:00 08/14/18 08:00 Temperature 97.9 F 97.4 F L 97.6 F Pulse Rate 88 103 H 85 Respiratory Rate 20 22 18 Blood Pressure 118/71 102/49 L 102/69 Pulse Oximetry 97 95 92 L 08/14/18 12:00 08/14/18 15:57 Temperature 97.2 F L 97.2 F L Pulse Rate 90 106 H Respiratory Rate 18 18 Blood Pressure 138/97 H 160/113 H Pulse Oximetry 93 L 96 Intake & Output 08/13/18 08/14/18 08/14/18 18:59 06:59 18:59 Intake Total 50 / 50 1110 / 1110 50 / 50 Output Total 300 / 300 Balance -250 / -250 1110 / 1110 50 / 50 Intake: IV 50 / 50 150 / 150 50 / 50 Zosyn 3.375 GM Premix 50 ML @ 50 / 50 150 / 150 50 / 50 100 mls/hr IV.SIG Q6H [facility] Rx#: [id number] Oral 960 / 960 Output: Urine 300 / 300 Other: # Voids 4 Date of Last Bowel Movement 08/13/18 08/13/18 - Constitutional no acute distress - Routine HEENT Exam Head: Present: normocephalic, atraumatic Eye: Present: EOMI, PERRL, conjunctivae pink - Routine Neck Exam Present: supple, full ROM. Absent: JVD - Routine Respiratory Exam Present: decreased breath sounds - Routine Cardiovascular Exam Present: RRR, S1, S2. Absent: murmur - Routine Abdominal Exam Present: soft - Routine Skin Exam Present: intact - Routine Neurological Exam Present: alert, oriented X3 - Routine Psychiatric Exam Present: normal affect Results 08/12/18 07:09 08/13/18 07:47 Comprehensive Metabolic Panel 08/13/18 Range/Units 07:47 Creatinine 1.18 (0.60-1.30) mg/dL Intake and Output 08/14/18 08/14/18 08/14/18 06:59 14:59 22:59 Intake Total 1060 / 1060 50 / 50 Balance 1060 / 1060 50 / 50 Intake: IV 100 / 100 50 / 50 Zosyn 3.375 GM Premix 50 ML @ 100 / 100 50 / 50 100 mls/hr IV.SIG Q6H VICKI Rx#: [id number] Oral 960 / 960 Other: # Voids 4 Date of Last Bowel Movement 08/13/18 - Imaging and Cardiology Imaging: Impressions Extremity Arterial Study 08/12/18 00:00 CONCLUSION: 1. Normal ankle brachial indexes. Assessment and Plan - Plan 53 yo had not seen doctor for 30 years 1. Severe LVSD, LVEF 20-25% by Echo and SPECT Lexiscan did not demonstrate ischemia, He may need coronary angiogram to rule out CAD, will defer to Dr. Mayberry decision. CHRISTIAN showed no vegetations BP will not allow titration of lisinopril at this time. continue carvedilol 25mg BID, lisinopril 5mg, atorvastatin 40mg, asa 81mg continue diuresis 2. Paroxysmal atrial flutter of unclear duration. Rate is controlled. Not on tele, will order Already started on Eliquis 5 mg BID for stroke prevention. I recommend direct current cardioversion after at least 4-6 weeks adequate anticoagulation to reduce risk of stroke, although CHRISTIAN negative. Patient in the process of obtaining medical assistance He needs to follow up with chart snatcher, for cardiac care. will need follow up echo in approx 3 months; may require ICD if LVEF less than 35%. Will need to arrange [facility] for primary SCD prevention prior to his discharge.
[2018-08-15] MEDS: Piperacil/Tazo 3.375 GM Premix 50 ML IV.SIG SCH ×4 (05:00→21:14)
--- NOTE | 2018-08-15 07:56 | P.PN ---
Subjective Interval history: Follow-up heart failure and atrial flutter. Cardiology recommends cardioversion after 4-6 weeks of anticoagulation. 6-second pause last night, dig level subtherapeutic. Discussed with nursing to hold digoxin and Coreg and alert cardiology Physical Exam Vital signs: Vital Signs 08/14/18 08:00 08/14/18 12:00 08/14/18 15:57 Temperature 97.6 F 97.2 F L 97.2 F L Pulse Rate 85 90 106 H Respiratory Rate 18 18 18 Blood Pressure 102/69 138/97 H 160/113 H Pulse Oximetry 92 L 93 L 96 08/14/18 20:00 08/15/18 00:00 08/15/18 00:56 Temperature 98.0 F 97.2 F L Pulse Rate 110 H 67 64 Respiratory Rate 20 18 Blood Pressure 110/74 106/62 Pulse Oximetry 96 97 08/15/18 04:00 08/15/18 04:15 Temperature 97.9 F Pulse Rate 93 H 88 Respiratory Rate 19 Blood Pressure 138/76 Pulse Oximetry 95 Intake & Output 08/14/18 08/15/18 08/15/18 18:59 06:59 18:59 Intake Total 100 / 100 400 / 400 Balance 100 / 100 400 / 400 Weight 163.2 kg Intake: IV 100 / 100 100 / 100 Zosyn 3.375 GM Premix 50 ML @ 100 / 100 100 / 100 100 mls/hr IV.SIG Q6H [facility] Rx#: [id number] Oral 300 / 300 Other: # Voids 4 5 Date of Last Bowel Movement 08/13/18 # Bowel Movements 1 Narrative: GENERAL: Well-nourished, well-developed obese middle aged male patient in [facility]. SKIN: Warm and dry. See lower extremities below. CARDIOVASCULAR: Irregular rate and rhythm. No murmur appreciated. RESPIRATORY: No accessory muscle use. Clear to auscultation. Breath sounds equal bilaterally. GASTROINTESTINAL: Abdomen soft, non-tender, nondistended. Normoactive bowel sounds x4. GENITOURINARY: Scrotum edematous, improving. MUSCULOSKELETAL: No obvious deformities. RLE with unna boots NEUROLOGICAL: Awake and alert. No obvious cranial nerve deficits. Moving all extremities spontaneously. Normal speech. Results - Labs CBC & Chem 7: 08/12/18 07:09 08/15/18 07:52 Laboratory Results - last 24 hr 08/14/18 08/14/18 08/14/18 08:09 10:22 12:35 POC Glucose 124 H 114 H Magnesium 2.0 08/14/18 08/14/18 17:05 19:14 POC Glucose 103 128 H Magnesium Microbiology 08/09/18 15:30 Blood - Peripheral Aerobic Blood Culture - Final No growth in 5 days 08/09/18 15:30 Blood - Peripheral Anaerobic Blood Culture - Final No growth in 5 days 08/09/18 15:35 Blood - Peripheral Aerobic Blood Culture - Final No growth in 5 days 08/09/18 15:35 Blood - Peripheral Anaerobic Blood Culture - Final No growth in 5 days 08/09/18 15:30 Abscess - Leg Gram Stain - Final 08/09/18 15:30 Abscess - Leg Wound Culture - Final Staphylococcus aureus Group B beta Strep Alcaligenes faecalis - Procedures 08/12/18 - Transesophageal Echocardiogram: Mildly dilated left ventricle. The left ventricular systolic function is severely reduced with an estimated ejection fraction in the range of 20-25%. Assessment and Plan - Plan 53-year-old male with no significant past medical history although has not seen any physician in 25 years, presents with a 2-week history of right lower extremity blisters and cellulitis. 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 Sepsis with Bilateral lower extremity cellulitis and right hallux ulcer: Right worse than left. Meets sepsis criteria with leukocytosis WBC 13.1K, tachycardia HR 141, source-cellulitis. -Foot xray with no acute fracture/dislocation, mild arthritic changes of ankle/midfoot; Achilles and plantar calcaneal spurring -Doppler U/S negative for DVT -Wound culture collected, preliminary with staph aureus, group B strep, and Alcaligenes faecalis -Blood cultures with NGTD -Continue antibiotics with IV Zosyn may change to p.o. Levaquin upon discharge -Elevate lower extremities -Consult wound care, appreciate recommendations -Podiatry consulted, no surgical intervention, recommended wound care and unna boots -Consult infectious disease -sepsis improving, WBC 9.2K Scrotal Edema, possible Cellulitis: acute, patient reports recent injury to scrotum with subsequent swelling/pain/dysuria. -Scrotum U/S with diffuse extensive scrotal wall thickening, likely infectious; normal testicles, small bilateral hydroceles -continue diuresis with lasix -Already on IV IV Zosyn as above -UA unremarkable -Scrotal elevation -improving New Onset Systolic CHF, nonischemic: no hx of CHF, patient with anasarca -08/10- Echocardiogram showed EF 25-30%, diffuse global hypokinesis, aortic valve sclerosis with calcification vs possible vegetation, consider CHRISTIAN -08/12- CHRISTIAN negative for vegetation; shows left ventricular systolic function is severely reduced with EF 20-25%. -08/12- Nuclear stress test showed no reversible perfusion abnormalities. Severe LV chamber dilatation and dysfunction -Started on lisinopril, coreg, aspirin, statin -continue diuresis with IV Lasix 40mg bid -lipid panel with LDL 91, started on statin -Consult cardiology, appreciate assistance- anticoagulation with Eliquis 5mg BID and added digoxin 250mcg daily. Recommends cardioversion after 4-6 weeks of anticoagulation. Repeat echo in 3 months may need ICD. 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 Developed significant pauses -Digoxin level subtherapeutic rate discontinue digoxin and Coreg -started on anticoagulation with Eliquis -cardiology following, plans for possible cardioversion CHRISTIAN no clots Hypertension: acute, no prior diagnosis of high blood pressure -started on lisinopril and coreg as above -clonidine prn -monitor BP, adjust antihypertensives as needed Elevated Blood Glucose: BG 127, unknown if fasting BG -monitor Accu-checks and cover with SSI for now -HgbA1c 6.4, recommend diet control and weight reduction -will need repeat A1c in 3 months DVT Prophylaxis: Eliquis Discharge Planning: Will need cardiology and ID recommendations and clearance prior to discharge. Patient will also need assistance with medications and arrangements for outpatient wound care prior to discharge. Case management to assist with discharge planning. Mandatory referral to podiatry, cardiology and wound care
[2018-08-15] MEDS: Insulin NovoLOG Aspart Correctional Sugar Inj SQ SCH ×4 (09:06→20:02)
[2018-08-15] MEDS: Lisinopril 5 MG Tablet PO SCH (09:09)
[2018-08-15] MEDS: Digoxin 250 MCG Tablet PO SCH (09:09)
[2018-08-15] MEDS: Carvedilol 6.25 MG Tablet PO SCH (09:09)
[2018-08-15] MEDS: Senna/Docusate Sodium 8.6/50 MG Tablet PO SCH ×2 (09:15→20:02)
[2018-08-15 09:45] LABS: Calcium 8.3 mg/dL (8.5-10.1); Carbon Dioxide 31.2 meq/L (21.0-32.0); Magnesium 1.8 mg/dL (1.5-2.5); Potassium 3.3 meq/L (3.5-5.1)
--- NOTE | 2018-08-15 17:20 | P.PNCA ---
Subjective Interval history: Around midnight last night, telemetry showed several episodes of 3-6 second pauses. Patient was asymptomatic And he was sleeping at that time. Medications and Allergies Active Medications: Active Medications Acetaminophen (Tylenol) 650 mg PO Q4H PRN PRN Reason: headache/fever/pain1-5 Hydrocodone Bitart/Acetaminophen ([place] 5/325) 1 tab PO Q6H PRN PRN Reason: pain 6 to 10 Last Admin: 08/14/18 20:44 Dose: 1 tab Al Hydroxide/Mg Hydroxide (Milk Of Magnesia Liq) 30 ml PO Q12H PRN PRN Reason: Mild Constipation Apixaban (Eliquis) 5 mg PO BID [facility] Last Admin: 08/15/18 09:09 Dose: 5 mg Aspirin (Ecotrin) 81 mg PO DAILY [facility] Last Admin: 08/15/18 09:09 Dose: 81 mg Atorvastatin Calcium (Lipitor) 40 mg PO DAILY [facility] Last Admin: 08/15/18 09:09 Dose: 40 mg Bisacodyl (Dulcolax Supp) 10 mg RECTAL DAILY PRN PRN Reason: SEVERE CONSITIPATION Dextrose (D50w Vial) 50 ml IV.PUSH UNSCH PRN PRN Reason: PER HYPOGLYCEMIA PROTOCOL Furosemide (Lasix Inj) 40 mg IV.PUSH BID@0900,1800 [facility] Last Admin: 08/15/18 09:09 Dose: 40 mg Glucagon (Glucagon Inj) 1 mg OTHER PRN PRN PRN Reason: for Hypoglycemia Protocol Piperacillin/Tazobactam/Dextrose (Zosyn 3.375 Gm Premix) 50 mls @ 100 mls/hr IV.SIG Q6H [facility] Last Infusion: 08/15/18 16:38 Dose: Infused Insulin Aspart (Novolog Insulin Correctional Sugar Inj) 0 unit SQ ACHS [facility]; Protocol Last Admin: 08/15/18 12:11 Dose: Not Given Lactulose (Lactulose Liq) 30 ml PO DAILY PRN PRN Reason: SEVERE CONSITIPATION Lisinopril (Prinivil) 5 mg PO DAILY [facility] Last Admin: 08/15/18 09:09 Dose: 5 mg Ondansetron HCl (Zofran Inj) 4 mg IV.PUSH Q6H PRN PRN Reason: NAUSEA OR VOMITING Potassium Chloride (K-Dur) 40 meq PO DAILY [facility] Senna/Docusate Sodium (Magy-Colace) 1 tab PO BID [facility] Last Admin: 08/15/18 09:15 Dose: Not Given Sennosides (Senokot) 17.2 mg PO Q12H PRN PRN Reason: Moderate Constipation Sodium Chloride (Ns Flush) 2 ml IV.FLUSH PRN PRN PRN Reason: FLUSH AFTER USING IV ACCESS Allergies Allergy/AdvReac Type Severity Reaction Status Date / Time No Known Allergies Allergy Verified 08/09/18 15:47 Home Medications Medication Instructions Recorded Confirmed Type No Known Home Medications 08/09/18 08/09/18 History Physical Exam Vital signs: Vital Signs 08/14/18 20:00 08/15/18 00:00 08/15/18 00:56 Temperature 98.0 F 97.2 F L Pulse Rate 110 H 67 64 Respiratory Rate 20 18 Blood Pressure 110/74 106/62 Pulse Oximetry 96 97 08/15/18 04:00 08/15/18 04:15 08/15/18 08:00 Temperature 97.9 F 97.2 F L Pulse Rate 93 H 88 59 L Respiratory Rate 19 18 Blood Pressure 138/76 156/81 H Pulse Oximetry 95 97 08/15/18 12:00 08/15/18 16:00 Temperature 97.3 F L 97.5 F L Pulse Rate 77 74 Respiratory Rate 17 17 Blood Pressure 101/69 118/74 Pulse Oximetry 97 97 Intake & Output 08/14/18 08/15/18 08/15/18 18:59 06:59 18:59 Intake Total 100 / 100 400 / 400 100 / 100 Balance 100 / 100 400 / 400 100 / 100 Weight 163.2 kg Intake: IV 100 / 100 100 / 100 100 / 100 Zosyn 3.375 GM Premix 50 ML @ 100 / 100 100 / 100 100 / 100 100 mls/hr IV.SIG Q6H [facility] Rx#: [id number] Oral 300 / 300 Other: # Voids 4 5 Date of Last Bowel Movement 08/13/18 # Bowel Movements 1 - Constitutional no acute distress - Routine HEENT Exam Eye: Present: EOMI, PERRL, conjunctivae pink - Routine Neck Exam Present: supple, full ROM. Absent: JVD, carotid bruit - Routine Respiratory Exam Present: CTA bilaterally - Routine Cardiovascular Exam Present: murmur, irregularly irregular - Routine Abdominal Exam Present: soft, normoactive bowel sounds - Routine Extremities Exam Present: edema, full ROM - Routine Skin Exam Present: intact - Routine Neurological Exam Present: alert, oriented X3, CN II-XII intact - Routine Psychiatric Exam Present: normal affect Results 08/12/18 07:09 08/15/18 07:52 Comprehensive Metabolic Panel 08/15/18 Range/Units 07:52 Sodium 138 (136-145) meq/L Potassium 3.3 L (3.5-5.1) meq/L Chloride 100 (98-107) meq/L Carbon Dioxide 31.2 (21.0-32.0) meq/L BUN 12 (7-18) mg/dL Creatinine 1.25 (0.60-1.30) mg/dL Calcium 8.3 L (8.5-10.1) mg/dL Intake and Output 08/15/18 08/15/18 08/15/18 06:59 14:59 22:59 Intake Total 350 / 350 50 / 50 50 / 50 Balance 350 / 350 50 / 50 50 / 50 Intake: IV 50 / 50 50 / 50 50 / 50 Zosyn 3.375 GM Premix 50 ML @ 50 / 50 50 / 50 50 / 50 100 mls/hr IV.SIG Q6H [facility] Rx#: [id number] Oral 300 / 300 Other: # Voids 5 Weight 163.2 kg Assessment and Plan - Plan 53 yo had not seen doctor for 30 years 1. Severe LVSD, LVEF 20-25% by Echo and SPECT Lexiscan did not demonstrate ischemia, He may need coronary angiogram to rule out CAD, will defer to Dr. Mayberry decision. CHRISTIAN showed no vegetations BP will not allow titration of lisinopril at this time. continue Lisinopril 5mg, atorvastatin 40mg, asa 81mg Coreg was on hold due to significant bradycardia with significant pauses continue diuresis Patient in the process of obtaining medical assistance He needs to follow up with human services manager, for cardiac care. will need follow up echo in approx 3 months; may require ICD if LVEF less than 35%. Will need to arrange [employer] for primary SCD prevention prior to his discharge. 2. Paroxysmal atrial flutter of unclear duration. Already started on Eliquis 5 mg BID for stroke prevention. I recommend direct current cardioversion after at least 4-6 weeks adequate anticoagulation to reduce risk of stroke, although CHRISTIAN negative. Coreg was on hold due to significant bradycardia with significant pauses last night. Digoxin on hold. Digit level 0.3 currently slightly tachycardia at 100. May need to resume lower dose of Coreg. continue monitor. I am seeing patient this weekend for [facility] cardiology coverage. Dr. Burt or Dr. Mayberry will resume care of this patient tomorrow.
[2018-08-16] MEDS: Piperacil/Tazo 3.375 GM Premix 50 ML IV.SIG SCH ×4 (03:29→21:51)
[2018-08-16 07:00] LABS: Calcium 8.2 mg/dL (8.5-10.1); Carbon Dioxide 30.6 meq/L (21.0-32.0); Potassium 3.7 meq/L (3.5-5.1)
--- NOTE | 2018-08-16 08:07 | P.PNCA ---
Subjective Interval history: Digoxin and carvedilol held after yesterday morning's doses due to pauses while in atrial flutter on telemetry up to 6.8 sec in duration. Overnight patient's heart rhythm remains atrial flutter with rate varying between 30 and 130. Patient denies any chest pain, shortness breath, palpitations, lightheadedness, dizziness, passing out. Medications and Allergies Allergies Allergy/AdvReac Type Severity Reaction Status Date / Time No Known Allergies Allergy Verified 08/09/18 15:47 Home Medications Medication Instructions Recorded Confirmed Type No Known Home Medications 08/09/18 08/09/18 History Active Medications: Active Medications Acetaminophen (Tylenol) 650 mg PO Q4H PRN PRN Reason: headache/fever/pain1-5 Hydrocodone Bitart/Acetaminophen ([place] 5/325) 1 tab PO Q6H PRN PRN Reason: pain 6 to 10 Last Admin: 08/14/18 20:44 Dose: 1 tab Al Hydroxide/Mg Hydroxide (Milk Of Magnesia Liq) 30 ml PO Q12H PRN PRN Reason: Mild Constipation Apixaban (Eliquis) 5 mg PO BID [facility] Last Admin: 08/15/18 20:02 Dose: 5 mg Aspirin (Ecotrin) 81 mg PO DAILY [facility] Last Admin: 08/15/18 09:09 Dose: 81 mg Atorvastatin Calcium (Lipitor) 40 mg PO DAILY [facility] Last Admin: 08/15/18 09:09 Dose: 40 mg Bisacodyl (Dulcolax Supp) 10 mg RECTAL DAILY PRN PRN Reason: SEVERE CONSITIPATION Dextrose (D50w Vial) 50 ml IV.PUSH UNSCH PRN PRN Reason: PER HYPOGLYCEMIA PROTOCOL Furosemide (Lasix Inj) 40 mg IV.PUSH BID@0900,1800 [facility] Last Admin: 08/15/18 17:21 Dose: 40 mg Glucagon (Glucagon Inj) 1 mg OTHER PRN PRN PRN Reason: for Hypoglycemia Protocol Piperacillin/Tazobactam/Dextrose (Zosyn 3.375 Gm Premix) 50 mls @ 100 mls/hr IV.SIG Q6H [facility] Last Infusion: 08/16/18 04:02 Dose: Infused Insulin Aspart (Novolog Insulin Correctional Sugar Inj) 0 unit SQ ACHS [facility]; Protocol Last Admin: 08/15/18 20:02 Dose: 1 unit Lactulose (Lactulose Liq) 30 ml PO DAILY PRN PRN Reason: SEVERE CONSITIPATION Lisinopril (Prinivil) 5 mg PO DAILY [facility] Last Admin: 08/15/18 09:09 Dose: 5 mg Ondansetron HCl (Zofran Inj) 4 mg IV.PUSH Q6H PRN PRN Reason: NAUSEA OR VOMITING Potassium Chloride (K-Dur) 40 meq PO DAILY [facility] Senna/Docusate Sodium (Magy-Colace) 1 tab PO BID [facility] Last Admin: 08/15/18 20:02 Dose: 1 tab Sennosides (Senokot) 17.2 mg PO Q12H PRN PRN Reason: Moderate Constipation Sodium Chloride (Ns Flush) 2 ml IV.FLUSH PRN PRN PRN Reason: FLUSH AFTER USING IV ACCESS Physical Exam Vital signs: Vital Signs 08/15/18 09:04 08/15/18 12:00 08/15/18 16:00 Temperature 97.3 F L 97.5 F L Pulse Rate 86 77 74 Respiratory Rate 17 17 Blood Pressure 101/69 118/74 Pulse Oximetry 97 97 08/15/18 19:55 08/15/18 20:00 08/15/18 23:50 Temperature 97.2 F L Pulse Rate 100 H 87 89 Respiratory Rate 18 Blood Pressure 139/82 Pulse Oximetry 96 08/16/18 00:00 08/16/18 04:00 08/16/18 05:04 Temperature 97.3 F L 97.2 F L Pulse Rate 102 H 71 87 Respiratory Rate 20 18 Blood Pressure 115/69 125/63 Pulse Oximetry 97 92 L Intake & Output 08/15/18 08/16/18 08/16/18 18:59 06:59 18:59 Intake Total 1600 / 1600 100 / 100 Balance 1600 / 1600 100 / 100 Intake: IV 100 / 100 100 / 100 Zosyn 3.375 GM Premix 50 ML @ 100 / 100 100 / 100 100 mls/hr IV.SIG Q6H [facility] Rx#: [id number] Oral 1500 / 1500 Other: # Voids 4 3 Date of Last Bowel Movement 08/15/18 # Bowel Movements 1 Narrative: GENERAL: Well-developed well-nourished. Morbidly obese. In no acute distress. NECK: No carotid bruits. No JVD. CARDIOVASCULAR: Irregular rate and rhythm. No murmur appreciated. RESPIRATORY: No accessory muscle use. Clear to auscultation. Breath sounds equal bilaterally. MUSCULOSKELETAL: Bilateral shins with Trevin wrap. NEUROLOGICAL: Awake and alert. Normal speech. Results 08/12/18 07:09 08/16/18 06:08 Comprehensive Metabolic Panel 08/15/18 08/16/18 Range/Units 07:52 06:08 Sodium 138 138 (136-145) meq/L Potassium 3.3 L 3.7 (3.5-5.1) meq/L Chloride 100 102 (98-107) meq/L Carbon Dioxide 31.2 30.6 (21.0-32.0) meq/L BUN 12 11 (7-18) mg/dL Creatinine 1.25 1.14 (0.60-1.30) mg/dL Calcium 8.3 L 8.2 L (8.5-10.1) mg/dL Intake and Output 08/15/18 08/16/18 08/16/18 22:59 06:59 14:59 Intake Total 1600 / 1600 50 / 50 Balance 1600 / 1600 50 / 50 Intake: IV 100 / 100 50 / 50 Zosyn 3.375 GM Premix 50 ML @ 100 / 100 50 / 50 100 mls/hr IV.SIG Q6H [facility] Rx#: [id number] Oral 1500 / 1500 Other: # Voids 4 3 # Bowel Movements 1 Assessment and Plan - Assessment (1) Cardiomyopathy Code(s): I42.9 - Cardiomyopathy, unspecified Status: Acute (2) Vegetation of heart valve Code(s): I33.0 - Acute and subacute infective endocarditis Status: Acute - Plan 53 yo had not seen doctor for 30 years Nonischemic cardiomyopathy, LVEF 20-25% by Echo and SPECT Lexiscan did not demonstrate ischemia. BP will not allow titration of lisinopril at this time. continue Lisinopril 5mg, atorvastatin 40mg, asa 81mg Coreg was on hold due to significant pauses Continue diuresis with Lasix Paroxysmal atrial flutter Sick Sinus Syndrome with prolonged pauses up to 6.8 sec in duration while in Atrial flutter Started on Eliquis 5 mg BID for elevated CHADS2-VASc score of 3 Hold AV tiki agents for now Consult EP, will need pacemaker for SSS with prolonged pauses while on Carvedilol which he requires for treatment of underlying NICM. Given his EF is < 35% an AICD is indicated for primary prevention of SCD. With underlying CM, Atrial flutter ablation would be indicated as he may benefit from maintenance of NSR and is not a candidate for Sotalol due to structural heart disease and Amiodarone therapy would not be an ideal choice of management given his relatively young age. Discussed with Dr Rosa, who will evaluate for dual chamber AICD implantation and Atrial flutter ablation later today. Discussed Condition With: Patient, Dr. Mayberry
[2018-08-16] MEDS: Insulin NovoLOG Aspart Correctional Sugar Inj SQ SCH ×4 (08:08→21:47)
--- NOTE | 2018-08-16 08:11 | P.PN ---
Subjective Interval history: F/U Fluuter. Off rate limiting agents HR as high as low 100s. Patient has no complain Physical Exam Vital signs: Vital Signs 08/15/18 09:04 08/15/18 12:00 08/15/18 16:00 Temperature 97.3 F L 97.5 F L Pulse Rate 86 77 74 Respiratory Rate 17 17 Blood Pressure 101/69 118/74 Pulse Oximetry 97 97 08/15/18 19:55 08/15/18 20:00 08/15/18 23:50 Temperature 97.2 F L Pulse Rate 100 H 87 89 Respiratory Rate 18 Blood Pressure 139/82 Pulse Oximetry 96 08/16/18 00:00 08/16/18 04:00 08/16/18 05:04 Temperature 97.3 F L 97.2 F L Pulse Rate 102 H 71 87 Respiratory Rate 20 18 Blood Pressure 115/69 125/63 Pulse Oximetry 97 92 L Intake & Output 08/15/18 08/16/18 08/16/18 18:59 06:59 18:59 Intake Total 1600 / 1600 100 / 100 Balance 1600 / 1600 100 / 100 Intake: IV 100 / 100 100 / 100 Zosyn 3.375 GM Premix 50 ML @ 100 / 100 100 / 100 100 mls/hr IV.SIG Q6H [facility] Rx#: [id number] Oral 1500 / 1500 Other: # Voids 4 3 Date of Last Bowel Movement 08/15/18 # Bowel Movements 1 Narrative: GENERAL: Well-developed well-nourished. Morbidly obese. In no acute distress. CARDIOVASCULAR: Irregular rate and rhythm. No murmur appreciated. RESPIRATORY: No accessory muscle use. Clear to auscultation. Breath sounds equal bilaterally. MUSCULOSKELETAL: Bilateral shins with Trevin wrap. NEUROLOGICAL: Awake and alert. Normal speech. Results - Labs CBC & Chem 7: 08/12/18 07:09 08/16/18 06:08 Laboratory Results - last 24 hr 08/15/18 08/15/18 08/15/18 07:52 07:52 08:15 Sodium 138 Potassium 3.3 L Chloride 100 Carbon Dioxide 31.2 Anion Gap 7 BUN 12 Creatinine 1.25 Estimated GFR 60 L POC Glucose 138 H Random Glucose 116 H Calcium 8.3 L Magnesium 1.8 Digoxin 0.3 L 08/15/18 08/15/18 08/15/18 11:55 16:35 19:55 Sodium Potassium Chloride Carbon Dioxide Anion Gap BUN Creatinine Estimated GFR POC Glucose 141 H 217 H 167 H Random Glucose Calcium Magnesium Digoxin 08/16/18 08/16/18 06:08 07:53 Sodium 138 Potassium 3.7 Chloride 102 Carbon Dioxide 30.6 Anion Gap 5 BUN 11 Creatinine 1.14 Estimated GFR 67 L POC Glucose 135 H Random Glucose 118 H Calcium 8.2 L Magnesium 2.0 Digoxin - Procedures 08/12/18 - Transesophageal Echocardiogram: Mildly dilated left ventricle. The left ventricular systolic function is severely reduced with an estimated ejection fraction in the range of 20-25%. Assessment and Plan - Plan 53-year-old male with no significant past medical history although has not seen any physician in 25 years, presents with a 2-week history of right lower extremity blisters and cellulitis. 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 Sepsis with Bilateral lower extremity cellulitis and right hallux ulcer: Right worse than left. Meets sepsis criteria with leukocytosis WBC 13.1K, tachycardia HR 141, source-cellulitis. -Foot xray with no acute fracture/dislocation, mild arthritic changes of ankle/midfoot; Achilles and plantar calcaneal spurring -Doppler U/S negative for DVT -Wound culture collected, preliminary with staph aureus, group B strep, and Alcaligenes faecalis -Blood cultures with NGTD -Continue antibiotics with IV Zosyn may change to p.o. Levaquin upon discharge -Elevate lower extremities -Consult wound care, appreciate recommendations -Podiatry consulted, no surgical intervention, recommended wound care and unna boots -Consult infectious disease -sepsis improving, WBC 9.2K Scrotal Edema, possible Cellulitis: acute, patient reports recent injury to scrotum with subsequent swelling/pain/dysuria. -Scrotum U/S with diffuse extensive scrotal wall thickening, likely infectious; normal testicles, small bilateral hydroceles -continue diuresis with lasix -Already on IV IV Zosyn as above -UA unremarkable -Scrotal elevation -improving New Onset Systolic CHF, nonischemic: no hx of CHF, patient with anasarca -08/10- Echocardiogram showed EF 25-30%, diffuse global hypokinesis, aortic valve sclerosis with calcification vs possible vegetation, consider CHRISTIAN -08/12- CHRISTIAN negative for vegetation; shows left ventricular systolic function is severely reduced with EF 20-25%. -08/12- Nuclear stress test showed no reversible perfusion abnormalities. Severe LV chamber dilatation and dysfunction -Started on lisinopril, coreg, aspirin, statin -continue diuresis with IV Lasix 40mg bid -lipid panel with LDL 91, started on statin -Consult cardiology, appreciate assistance- anticoagulation with Eliquis 5mg BID and added digoxin 250mcg daily. Recommends cardioversion after 4-6 weeks of anticoagulation. 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 Developed significant pauses -Digoxin level subtherapeutic rate discontinue digoxin and Coreg -started on anticoagulation with Eliquis -cardiology following, plans for possible cardioversion HCRISTIAN no clot -EPS for PPM Hypertension: acute, no prior diagnosis of high blood pressure -started on lisinopril and coreg as above -clonidine prn -monitor BP, adjust antihypertensives as needed Elevated Blood Glucose: BG 127, unknown if fasting BG -monitor Accu-checks and cover with SSI for now -HgbA1c 6.4, recommend diet control and weight reduction -will need repeat A1c in 3 months DVT Prophylaxis: Eliquis Discharge Planning: Will need cardiology and ID recommendations and clearance prior to discharge. Patient will also need assistance with medications and arrangements for outpatient wound care prior to discharge. Case management to assist with discharge planning. O/p f/u with cardiology , podiatry and wound care
[2018-08-16] MEDS: Lisinopril 5 MG Tablet PO SCH (09:33)
[2018-08-16] MEDS: Senna/Docusate Sodium 8.6/50 MG Tablet PO SCH ×2 (10:39→21:47)
--- NOTE | 2018-08-16 17:35 | P.PNWCN ---
Wound Care Nurse Consult Description: Patient seen dressing changes of Bauer boot to BLE with technical writer and editor and Brigid AGUILERA. Communicated with: WILLY Rainey,and RN Kellie clements Recommendation: Please leave Bauer/unna boots in place until Thursday and wound care nurse will change. Wound/Pressure Injury - Additional Information WILLY Rainey wound center nurse,removed bilateral Bauer boots and Optifoam AG gentle in place to reveal diffuse bilateral leg wounds.Patient still has diffuse shallow ulcerations to the bilateral lower extremities.Now all wounds present with 100% red non granulation tissue and appear clean.All Wounds were cleansed with normal saline, before Brigid AGUILERA wound center nurse applied optifoam gentle Ag to all open wounds and new Bauer boots. Patient tolerated well. Will change Bauer boots on Thursday.
[2018-08-17] MEDS: Piperacil/Tazo 3.375 GM Premix 50 ML IV.SIG SCH ×4 (04:24→23:00)
[2018-08-17 06:22] LABS: Calcium 8.4 mg/dL (8.5-10.1); Carbon Dioxide 29.1 meq/L (21.0-32.0); Magnesium 2.1 mg/dL (1.5-2.5); Potassium 3.5 meq/L (3.5-5.1)
--- NOTE | 2018-08-17 08:16 | P.PN ---
Subjective Interval history: Follow-up flutter. Currently n.p.o. awaiting EPS Physical Exam Vital signs: Vital Signs 08/16/18 09:31 08/16/18 12:00 08/16/18 16:00 Temperature 97.3 F L 98.1 F Pulse Rate 89 49 L 98 H Respiratory Rate 18 17 Blood Pressure 167/88 H 139/87 Pulse Oximetry 95 96 08/16/18 20:00 08/17/18 00:00 08/17/18 04:00 Temperature 97.5 F L 97.5 F L 98.4 F Pulse Rate 94 H 52 L 85 Respiratory Rate 22 18 21 Blood Pressure 117/55 L 144/67 H 128/95 H Pulse Oximetry 96 94 L 94 L Intake & Output 08/16/18 08/17/18 08/17/18 18:59 06:59 18:59 Intake Total 100 / 100 680 / 680 Balance 100 / 100 680 / 680 Weight 164 kg Intake: IV 100 / 100 100 / 100 Zosyn 3.375 GM Premix 50 ML @ 100 / 100 100 / 100 100 mls/hr IV.SIG Q6H [facility] Rx#: [id number] Oral 580 / 580 Other: # Voids 3 Date of Last Bowel Movement 08/16/18 08/16/18 Narrative: GENERAL: Well-developed well-nourished. Morbidly obese. In no acute distress. NECK: No carotid bruits. No JVD. CARDIOVASCULAR: Irregular rate and rhythm. No murmur appreciated. RESPIRATORY: No accessory muscle use. Clear to auscultation. Breath sounds equal bilaterally. MUSCULOSKELETAL: Bilateral shins with Trevin wrap. NEUROLOGICAL: Awake and alert. Normal speech. Results - Labs CBC & Chem 7: 08/12/18 07:09 08/17/18 04:35 Laboratory Results - last 24 hr 08/16/18 08/16/18 08/16/18 12:34 17:07 21:46 Sodium Potassium Chloride Carbon Dioxide Anion Gap BUN Creatinine Estimated GFR POC Glucose 133 H 106 139 H Random Glucose Calcium Magnesium 08/17/18 08/17/18 04:35 08:09 Sodium 138 Potassium 3.5 Chloride 102 Carbon Dioxide 29.1 Anion Gap 7 BUN 13 Creatinine 1.03 Estimated GFR 75 L POC Glucose 123 H Random Glucose 121 H Calcium 8.4 L Magnesium 2.1 - Imaging ITS Impressions Foot X-Ray 08/09/18 15:19 CONCLUSION: 1. Achilles and plantar calcaneal spurring. 2. No acute fracture or dislocation. 3. Mild arthritic changes involving the ankle and midfoot. Venous Doppler Study 08/09/18 15:20 CONCLUSION: 1. No DVT identified. Scrotum Ultrasound 08/09/18 17:20 CONCLUSION: 1. Diffuse extensive scrotal wall thickening, likely infectious. 2. Normal-appearing testicles. 3. Small bilateral hydroceles Myocardial Perfusion Scan Nuc Med 08/11/18 09:03 CONCLUSION: 1. No reversible perfusion abnormalities. 2. Severe LV chamber dilatation and dysfunction Extremity Arterial Study 08/12/18 00:00 CONCLUSION: 1. Normal ankle brachial indexes. - Procedures 08/12/18 - Transesophageal Echocardiogram: Mildly dilated left ventricle. The left ventricular systolic function is severely reduced with an estimated ejection fraction in the range of 20-25%. Assessment and Plan - Plan 53-year-old male with no significant past medical history although has not seen any physician in 25 years, presents with a 2-week history of right lower extremity blisters and cellulitis. 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 Sepsis with Bilateral lower extremity cellulitis and right hallux ulcer: Right worse than left. Meets sepsis criteria with leukocytosis WBC 13.1K, tachycardia HR 141, source-cellulitis. -Foot xray with no acute fracture/dislocation, mild arthritic changes of ankle/midfoot; Achilles and plantar calcaneal spurring -Doppler U/S negative for DVT -Wound culture collected, preliminary with staph aureus, group B strep, and Alcaligenes faecalis -Blood cultures with NGTD -Continue antibiotics with IV Zosyn may change to p.o. Levaquin upon discharge -Elevate lower extremities -Consult wound care, appreciate recommendations -Podiatry consulted, no surgical intervention, recommended wound care and unna boots -Consulted infectious disease -sepsis improving, WBC 9.2K Scrotal Edema, possible Cellulitis: acute, patient reports recent injury to scrotum with subsequent swelling/pain/dysuria. -Scrotum U/S with diffuse extensive scrotal wall thickening, likely infectious; normal testicles, small bilateral hydroceles -continue diuresis with lasix -Already on IV IV Zosyn as above -UA unremarkable -Scrotal elevation -improving New Onset Systolic CHF, nonischemic: no hx of CHF, patient with anasarca -08/10- Echocardiogram showed EF 25-30%, diffuse global hypokinesis, aortic valve sclerosis with calcification vs possible vegetation, consider CHRISTIAN -08/12- CHRISTIAN negative for vegetation; shows left ventricular systolic function is severely reduced with EF 20-25%. -08/12- Nuclear stress test showed no reversible perfusion abnormalities. Severe LV chamber dilatation and dysfunction -Started on lisinopril, coreg(d/c), aspirin, statin -continue diuresis with IV Lasix 40mg bid -lipid panel with LDL 91, started on statin -Consult cardiology, appreciate assistance- anticoagulation with Eliquis 5mg BID and added digoxin 250mcg daily(d/c). Recommends cardioversion after 4-6 weeks of anticoagulation. Repeat echo in 3 months may need ICD. 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 Developed significant pauses -Digoxin level subtherapeutic rate discontinued digoxin and Coreg -started on anticoagulation with Eliquis -cardiology following, plans for possible cardioversion CHRISTIAN no clot -EPS for PPM/ AICD Hypertension: acute, no prior diagnosis of high blood pressure -started on lisinopril and coreg as above -clonidine prn -monitor BP, adjust antihypertensives as needed Elevated Blood Glucose: BG 127, unknown if fasting BG -monitor Accu-checks and cover with SSI for now -HgbA1c 6.4, recommend diet control and weight reduction -will need repeat A1c in 3 months DVT Prophylaxis: Eliquis Discharge Planning: Will need cardiology and ID recommendations and clearance prior to discharge. Patient will also need assistance with medications and arrangements for outpatient wound care prior to discharge. Case management to assist with discharge planning. O/p f/u with cardiology , podiatry and wound care
[2018-08-17] MEDS ORDERED: Iohexol 350 MG/ML 50 ML Vial (for EPS) IVCONTRAST ONE (09:00)
[2018-08-17] MEDS ORDERED: metOLazone 5 MG Tablet PO SCH (09:00)
--- NOTE | 2018-08-17 09:01 | P.PNCA ---
Subjective Interval history: patient seen and examined. no change overnight. to be seen by Dr Rosa today for AICD and possible AFL ablation Medications and Allergies Active Medications: Active Medications Acetaminophen (Tylenol) 650 mg PO Q4H PRN PRN Reason: headache/fever/pain1-5 Hydrocodone Bitart/Acetaminophen ([place] 5/325) 1 tab PO Q6H PRN PRN Reason: pain 6 to 10 Last Admin: 08/14/18 20:44 Dose: 1 tab Al Hydroxide/Mg Hydroxide (Milk Of Magnesia Liq) 30 ml PO Q12H PRN PRN Reason: Mild Constipation Apixaban (Eliquis) 5 mg PO BID [facility] Last Admin: 08/16/18 21:44 Dose: Not Given Aspirin (Ecotrin) 81 mg PO DAILY [facility] Last Admin: 08/16/18 09:33 Dose: 81 mg Atorvastatin Calcium (Lipitor) 40 mg PO DAILY [facility] Last Admin: 08/16/18 09:33 Dose: 40 mg Bisacodyl (Dulcolax Supp) 10 mg RECTAL DAILY PRN PRN Reason: SEVERE CONSITIPATION Dextrose (D50w Vial) 50 ml IV.PUSH UNSCH PRN PRN Reason: PER HYPOGLYCEMIA PROTOCOL Furosemide (Lasix Inj) 40 mg IV.PUSH BID@0900,1800 [facility] Last Admin: 08/16/18 17:08 Dose: 40 mg Glucagon (Glucagon Inj) 1 mg OTHER PRN PRN PRN Reason: for Hypoglycemia Protocol Piperacillin/Tazobactam/Dextrose (Zosyn 3.375 Gm Premix) 50 mls @ 100 mls/hr IV.SIG Q6H [facility] Last Infusion: 08/17/18 04:55 Dose: Infused Insulin Aspart (Novolog Insulin Correctional Sugar Inj) 0 unit SQ ACHS [facility]; Protocol Last Admin: 08/16/18 21:47 Dose: Not Given Lactulose (Lactulose Liq) 30 ml PO DAILY PRN PRN Reason: SEVERE CONSITIPATION Lisinopril (Prinivil) 5 mg PO DAILY [facility] Last Admin: 08/16/18 09:33 Dose: 5 mg Metolazone (Zaroxolyn) 5 mg PO DAILY [facility] Ondansetron HCl (Zofran Inj) 4 mg IV.PUSH Q6H PRN PRN Reason: NAUSEA OR VOMITING Potassium Chloride (K-Dur) 40 meq PO TID [facility] Senna/Docusate Sodium (Magy-Colace) 1 tab PO BID [facility] Last Admin: 08/16/18 21:47 Dose: Not Given Sennosides (Senokot) 17.2 mg PO Q12H PRN PRN Reason: Moderate Constipation Sodium Chloride (Ns Flush) 2 ml IV.FLUSH PRN PRN PRN Reason: FLUSH AFTER USING IV ACCESS Last Admin: 08/16/18 09:32 Dose: 2 ml Allergies Allergy/AdvReac Type Severity Reaction Status Date / Time No Known Allergies Allergy Verified 08/09/18 15:47 Home Medications Medication Instructions Recorded Confirmed Type No Known Home Medications 08/09/18 08/09/18 History Physical Exam Vital signs: Vital Signs 08/16/18 09:31 08/16/18 12:00 08/16/18 16:00 Temperature 97.3 F L 98.1 F Pulse Rate 89 49 L 98 H Respiratory Rate 18 17 Blood Pressure 167/88 H 139/87 Pulse Oximetry 95 96 08/16/18 20:00 08/17/18 00:00 08/17/18 04:00 Temperature 97.5 F L 97.5 F L 98.4 F Pulse Rate 94 H 52 L 85 Respiratory Rate 22 18 21 Blood Pressure 117/55 L 144/67 H 128/95 H Pulse Oximetry 96 94 L 94 L Intake & Output 08/16/18 08/17/18 08/17/18 18:59 06:59 18:59 Intake Total 100 / 100 680 / 680 Balance 100 / 100 680 / 680 Weight 164 kg Intake: IV 100 / 100 100 / 100 Zosyn 3.375 GM Premix 50 ML @ 100 / 100 100 / 100 100 mls/hr IV.SIG Q6H [facility] Rx#: [id number] Oral 580 / 580 Other: # Voids 3 Date of Last Bowel Movement 08/16/18 08/16/18 Narrative: GENERAL: Well-developed well-nourished. Morbidly obese. In no acute distress. NECK: No carotid bruits. JVD difficult to appreciate due to thick neck. CARDIOVASCULAR: regular rate and rhythm. distant heart sounds. No murmur appreciated. RESPIRATORY: No accessory muscle use. Clear to auscultation. Breath sounds equal bilaterally. MUSCULOSKELETAL: Bilateral shins with Trevin wrap.3+LE edema NEUROLOGICAL: Awake and alert. Normal speech. Results 08/12/18 07:09 08/17/18 04:35 Comprehensive Metabolic Panel 08/15/18 08/16/18 08/17/18 Range/Units 07:52 06:08 04:35 Sodium 138 138 138 (136-145) meq/L Potassium 3.3 L 3.7 3.5 (3.5-5.1) meq/L Chloride 100 102 102 (98-107) meq/L Carbon Dioxide 31.2 30.6 29.1 (21.0-32.0) meq/L BUN 12 11 13 (7-18) mg/dL Creatinine 1.25 1.14 1.03 (0.60-1.30) mg/dL Calcium 8.3 L 8.2 L 8.4 L (8.5-10.1) mg/dL Intake and Output 08/16/18 08/17/18 08/17/18 22:59 06:59 14:59 Intake Total 100 / 100 630 / 630 Balance 100 / 100 630 / 630 Intake: IV 100 / 100 50 / 50 Zosyn 3.375 GM Premix 50 ML @ 100 / 100 50 / 50 100 mls/hr IV.SIG Q6H [facility] Rx#: [id number] Oral 580 / 580 Other: # Voids 3 Date of Last Bowel Movement 08/16/18 Weight 164 kg Assessment and Plan - Assessment (1) Cardiomyopathy Code(s): I42.9 - Cardiomyopathy, unspecified Status: Acute (2) Vegetation of heart valve Code(s): I33.0 - Acute and subacute infective endocarditis Status: Acute - Plan 53 yo had not seen doctor for 30 years Nonischemic cardiomyopathy, LVEF 20-25% by Echo and SPECT Lexiscan did not demonstrate ischemia. BP will not allow titration of lisinopril at this time. continue Lisinopril 5mg, atorvastatin 40mg, asa 81mg Coreg was on hold due to significant pauses Continue diuresis with Lasix Paroxysmal atrial flutter Sick Sinus Syndrome with prolonged pauses up to 6.8 sec in duration while in Atrial flutter Started on Eliquis 5 mg BID for elevated CHADS2-VASc score of 3 Hold AV tiki agents for now Consult EP, will need pacemaker for SSS with prolonged pauses while on Carvedilol which he requires for treatment of underlying NICM. Given his EF is < 35% an AICD is indicated for primary prevention of SCD. With underlying CM, Atrial flutter ablation would be indicated as he may benefit from maintenance of NSR and is not a candidate for Sotalol due to structural heart disease and Amiodarone therapy would not be an ideal choice of management given his relatively young age. Discussed with Dr Rosa, who will evaluate for dual chamber AICD implantation and Atrial flutter ablation later today.
[2018-08-17] MEDS: Lisinopril 5 MG Tablet PO SCH (09:02)
[2018-08-17] MEDS: Senna/Docusate Sodium 8.6/50 MG Tablet PO SCH ×2 (09:02→22:11)
[2018-08-17] MEDS: Insulin NovoLOG Aspart Correctional Sugar Inj SQ SCH ×4 (09:08→22:13)
[2018-08-17] MEDS ORDERED: Chlorhexidine Gluconate 2% 1 Pack (2 Cloths) TOPICAL ONE (14:44)
[2018-08-17] MEDS ORDERED: Metoprolol Tartrate 25 MG Tablet PO SCH (14:44)
[2018-08-17] MEDS ORDERED: Sodium Chlor 0.9% Inj 500 ML IV.SIG SCH (15:00)
--- NOTE | 2018-08-17 17:09 | CATHPROC ---
The [facility] HIS Report Study Information Study Number Admission Scheduled Start Study Start [id number] Aug 10 2018 12:21PM 08/17/2018 Aug 17 2018 3:41PM [facility] Cardiac Pacer/ICD Admit Source Facility Department Other [facility] Physician and Clinical Staff Initial Kayla Gardner Junior Systems Engineer Jan Tan,RT(R) Junior Systems Engineer Christina Toscano,[employer] TECH2 Other Anesthesia, CONTINUITY COORDINATOR Recorder Zuri Renner,RN Recorder Ilsa Macias RN Scrub Cindy Dobbs,MARINE PILOT TECH2 Procedures Performed Procedure Location (Site) Vessel Name Ablation Procedure RF Ablation Isthmus Other Equipment Time Corporate Counselor Description Size Mfg Part Number Used/Scraped BIOSENSE ABARCA CATHETER, CELSIUS DS, 8MM, F [id number] 16:32 FR 7 Used INC. TYPE QUAD *[id number] 15:49 FullContact BLANKET,WARM AIR CCL * Used *[id number] 15:49 FullContact PACK, CCL CUSTOM * Used *[id number] 15:49 [employer] PACER HERNANDEZ, LIMB * 2530 *[id number] Used [id number] 16:10 [employer] CATHETER, JSN, QUAD FR 5 Used *[id number] 16:10 [employer] CATHETER, JSN, QUAD FR 5 Used *[id number] 16:10 [employer] CATHETER, JSN, QUAD FR 5 Used *[id number] 16:10 [employer] CATHETER, JSN, QUAD FR 5 Used *[id number] 15:49 [employer] MEDICAL ELECTRODE KIT, CARLENE X SURFACE * Used *[id number] 15:57 [employer] SHEATH, EPS, FR5 FAST CATH FR 5 Used *[id number] 15:57 [employer] SHEATH, EPS, FR5 FAST CATH FR 5 Used *[id number] 15:57 [employer] SHEATH, EPS, FR5 FAST CATH FR 5 Used *[id number] 15:57 [employer] SHEATH, EPS, FR6 FAST CATH FR 6 Used *[id number] 15:57 [employer] SHEATH, EPS, FR8 FAST CATH FR 8 Used *[id number] [facility] PAD, ELECTROSURGICAL 15:49 * [id number] *[id number] Used SURGICAL GROUNDING (BLUE) History: Allergies Allergy Reaction No Known Allergies History: Risk Factors Family History of Hypertension Dyslipidemia Previous PA Previous Heart Failure Premature CAD Yes Yes No No Yes Prior Valve Prior PCI Prior CABG Surgery No No No Cerebrovascular Peripheral Artery Chronic Lung On Dialysis Diabetes Diabetes Therapy Disease Disease Disease No No Yes No Yes Diet Labs Hgb (g/dl) Hct (%) RBC (MIL/MM3) WBC (l/cumm) Platelets (thousands) 11.60-17.00 35.00-51.00 4.00-5.90 4.00-11.00 150.00-450.00 14.0 42 4.6 9.2 152 Glucose (mg/dl) BUN (mg/dl) Creatinine (mg/dl) BUN:Creatinine (1:x) 74.00-106.00 7.00-18.00 0.50-1.30 10.00-20.00 121 13 1.0 13 Na (meq/l) K (meq/l) 136.00-145.00 3.50-5.10 138 3.5 CPK-MB (ng/ML) 0.50-3.60 Not Drawn Medication Medication Total Dose (Bolus/Oral) Medication Total Dosage/Unit 1% XYLOCAINE 40 mL Medications (Bolus/Oral) Medication Time Given Dosage/Unit Administered By Reason 1% XYLOCAINE 08/17/2018 4:25:45 PM 20 mL Kayla Rosa 20 mL 1% XYLOCAINE given in lab by Kayla Rosa in Left Groin via Subcutaneous. 1% XYLOCAINE 08/17/2018 4:28:29 PM 20 mL Kayla Rosa 20 mL 1% XYLOCAINE given in lab by Kayla Rosa in Right Groin via Subcutaneous. Medication (Drip) Medication Time Given Dosage/Unit Concentration/Unit Diluent (ml) Solution ISUPREL 08/17/2018 4:54:19 PM 4 mcg/min 1 mg 250 NaCl .9 4 mcg/min ISUPREL given in lab by Marya CONTINUITY COORDINATOR via Peripheral IV. Pump/Drip Flow = 60 ml/hr using NaCl .9 with a concentration of 1 mg in 250 ml. Ordered by Kayla Rosa. Reason: As per physicians verbal order. Initial Case Assessment Cardiovascular HR Rhythm NIBP Chest Pain 121 A-flutter 135/98 0 Edema Present Skin color Skin Moderate Normal Warm Dry Circulatory - Lower Extremities Color Lower Right Color Lower Left Normal Normal Neurological State Oriented to time-place- Alert Moves all extremities person Respiration - General Respiration Rate SpO2 (%) (B/min) 18 98 Chronological Log Time Study Chronological Log 15:20:53 Patient arrived via Bed. 15:20:53 Patient Name, D.O.B, / Armband Verified By R.N. 15:20:54 Consent signed by the physician and the patient and verified by the [facility] staff. 15:20:55 Pre-op and post- op instructions given; patient acknowledges understanding of instructions. 15:20:56 Verbal Stimulation=2 Physical Stimulation=2 Airway=2 Respiration=2 TOTAL=8. (0=absent, 1=li mited, 2=present) 15:21:05 Patient has been NPO for More than 6Hrs. Skin Breakdown-bilateral LE cellulitis 15:21:08 cut by left side of mouth from pt shaving 15:21:19 A # 20 IV was noted in the Antecubital (right). Grade = 0 0.9NS infusing at KVO without com plication 15:21:34 Patient Warmer Placed on the Table. 15:21:35 Disposable Defibrillator Pads Placed On Patient. 15:21:35 Ethel Prominences Protected 15:21:40 A # 20 IV was noted in the Forearm (left). Grade = 0 0.9NS at KVO infusing without complica tion 15:21:40 Table restraints applied according to hospital policy 15:21:48 History and physical on the chart or being dictated. Assessment: Initial Case, HK=825 BPM, Rhythm=A-flutter, PZZP=366/98 mmhg, Chest Pain=0, Edema=M od, Color=Normal, Skin = Warm, Dry Lower Right Extremities: Color=Normal 15:21:49 Lower Left Extremities: Color=Normal Neurological: State=Alert, Ox3, [place] Respiration: Resp=18 B/min, SpO2=98 % 15:22:43 Bilateral groins prepped with 2% chlorhexidine, and draped after a 3 minute waiting time. 15:47:16 Anesthesia at bedside. Assumes care of patient. Italo 16:10:20 paged Time Out. Correct patient, procedure, procedure equipment, site and side verified with physicia n present. Time 16:25:42 concurred by MD, individual staff and CONTINUITY COORDINATOR. Time Out #2 - Consents verified, patient in correct position, all results are labled and displa yed, safety precautions 16:25:43 taken, antibiotics administered. Time out concurred by MD, individual staff and CONTINUITY COORDINATOR in procedu re 16:25:44 Case Start 16:25:45 20 mL 1% XYLOCAINE given in lab by Kayla Rosa in Left Groin via Subcutaneous. 16:26:59 Vascular access was obtained in the Fem Vein (left). 16:27:03 Vascular access was obtained in the Fem Vein (left). 16:27:04 Vascular access was obtained in the Fem Vein (left). 16:27:41 A SHEATH, EPS, FR5 FAST CATH FR 5 was advanced into the Fem Vein (left) using the Modified Seldinger technique. 16:27:47 A SHEATH, EPS, FR5 FAST CATH FR 5 was advanced into the Fem Vein (left) using the Modified Seldinger technique. 16:27:51 A SHEATH, EPS, FR5 FAST CATH FR 5 was advanced into the Fem Vein (left) using the Modified Seldinger technique. 16:28:29 20 mL 1% XYLOCAINE given in lab by Kayla Rosa in Right Groin via Subcutaneous. 16:28:38 Vascular access was obtained in the Fem Vein (right). 16:28:48 Vascular access was obtained in the Fem Vein (right). 16:28:56 A SHEATH, EPS, FR6 FAST CATH FR 6 was advanced into the Fem Vein (right) using the Modified Seldinger technique. 16:29:01 A SHEATH, EPS, FR8 FAST CATH FR 8 was advanced into the Fem Vein (right) using the Modified Seldinger technique. A CATHETER, JSN, QUAD FR 5 was advanced vis Fem Vein (left) and placed in the HRA. Placement wa s visually 16:30:54 confirmed under fluoroscopy. A CATHETER, JSN, QUAD FR 5 was advanced vis Fem Vein (left) and placed in the HIS. Placement w as visually 16:31:08 confirmed under fluoroscopy. A CATHETER, JSN, QUAD FR 5 was advanced vis Fem Vein (left) and placed in the RVA. Placement w as visually 16:31:14 confirmed under fluoroscopy. A CATHETER, JSN, QUAD FR 5 was advanced vis Fem Vein (right) and placed in the CS. Placement w as visually 16:31:24 confirmed under fluoroscopy. A CATHETER, CELSIUS DS, 8MM, F TYPE QUAD FR 7 was advanced vis Fem Vein (right) and placed in the Isthmus. 16:34:09 Placement was visually confirmed under fluoroscopy. 16:35:41 Reference ECG taken 16:35:52 RF Ablation of the Isthmus with a CATHETER, CELSIUS DS, 8MM, F TYPE QUAD FR 7. 16:43:46 Ablation complete. EPS in progress. 4 mcg/min ISUPREL given in lab by Anesthesia, CONTINUITY COORDINATOR via Peripheral IV. Pump/Drip Flow = 60 ml/h r using NaCl .9 with 16:54:19 a concentration of 1 mg in 250 ml. Ordered by Kayla Rosa. Reason: As per physicians verbal order. 17:04:44 Isuprel off. 17:04:59 All catheter(s) removed without difficulty 17:08:06 Cine recording checked. 17:09:38 Sheaths removed; pressure applied to access sites. 17:10:32 Case End (Physician broke scrub) 17:10:40 No case complications noted. 17:11:32 NOTE: This patient is undergoing an additional procedure while still in the Cardiac Cath L ab. 18:05:16 Ablation procedure performed: Aflutter. 18:05:22 EP Procedure was performed. End Study - Contrast Media Used In Study Contrast Total Opened (mL) Total Used (mL) Total Wasted (mL) Unspecified 0 0 0 End Study - Maximum Contrast Load Max Contrast Load (mL) 372.7 End Study - Radiation Exposure Fluoro Time (minutes) 3.1 End Study - Patient Disposition Complications Transferred To Interventional Outcome No Telemetry Bed successful
--- NOTE | 2018-08-17 18:05 | CATHPROC ---
Patient Name: Nitin Haddad Study #: [id number] Initial MD: Kayla Rosa Date of : 1965 Study Date: 08/17/2018 Cardiac Catheterization Report 08/17/2018 6:04:35 PM Financial #: [id number] 1 of 6 Patient Name: Nitin Haddad Study #: [id number] Initial MD: Kayla Rosa Date of : 1965 Study Date: 08/17/2018 Entire Case Report Patient Information Patient Name Nitin Haddad Date of 1965 Age 53 years Financial # [id number] Gender M AlternateID Lab Number 2 Room Number 1717 Height (in) 73.0 Height (cm) 185.4 BSA 2.77 Weight (lbs) 360.8 Weight (kg) 164.0 Patient Address/Phone Number Home Address [facility] Home Phone Number [phone] [phone] Study Information Study Number Admission Scheduled Start Study Start [id number] Aug 10 2018 12:21PM 08/17/2018 Aug 17 2018 5:10PM [facility] Cardiac Pacer/ICD Admit Source Facility Department Other [facility] - Chief Bank Examiner Physician and Clinical Staff Initial Kayla Gardner Principal Ios Developer Frieda Alonzo RCIS Other Anesthesia, GREEN BUILDING ARCHITECT Recorder Ilsa Macias,NURYS Jacksonub Jan Tan,RT(R) Procedures Performed Procedure Lead Insertion 08/17/2018 6:04:35 PM Financial #: [id number] 2 of 6 Patient Name: Nitin Haddad Study #: [id number] Initial MD: Kayla Rosa Date of : 1965 Study Date: 08/17/2018 Equipment Time Blowing Weasand Description Size Mfg Part Number Used/Scraped DEFIBRILLATOR, INTICA 7 VR-T 17:50 BIOTRONIK VVE-VDDR [id number] Used DX 17:44 BIOTRONIK LEAD, PLEXA PRO-MRI DF 65/15 [id number] Used DERMABOND, ADHESIVE SKIN [facility] 17:41 CORDIS/PACER * Used GLUE MINI *[id number] NVH3409 17:41 MEDLINE [employer] BLANKET,WARM AIR CCL * Used *[id number] TP-1103 17:41 MEDLINE IND[employer] SUTURE, STRIP PLUS 1/2" * Used *[id number] 17:41 MEDLINE PACER HERNANDEZ, LIMB * 2530 *[id number] Used [id number] 17:41 MEDLINE PACER PACK, PACER CUSTOM * Used *[id number] 17:46 SlapVid PACER SAFE SHEATH, FR8, 13CM FR 8 CLS-1008 Used 17:30 Needle Sponge Count 2 22 Used 17:30 Needle Sponge Count 20 200 Used 17:30 Needle Sponge Count 3 3 Used 17:43 NYCOMED OMNIPAQUE, 300 MG, 50ML 50ML [id number] Used SUTURE, 0 ETHIBOND [CT1] (CX21D), 8pk SUTURE, 2-0 VICRYL [CT1] ([id number]) SUTURE, 2-0 VICRYL [CT1] ([id number]) [facility], ELECTROSURGICAL 17:41 * [id number] *[id number] Used SURGICAL GROUNDING ORANGE [id number] 17:41 [employer]. / * Used *26463 Equipment Model, Serial, Lot Number and Expiration Data Description Model Number Serial Number Lot Number Expiration Date DEFIBRILLATOR, INTICA 7 VR-T DX [id number] 09-13-2019 LEAD, PLEXA PRO-MRI DF 65/15 [id number] 05-15-2020 Insurance Information Insurance Payor None Third Republican Third Republican Number Self Pay SP Medication 08/17/2018 6:04:35 PM Financial #: [id number] 3 of 6 Patient Name: Nitin Haddad Study #: [id number] Initial MD: Kayla Rosa Date of : 1965 Study Date: 08/17/2018 Medication Total Dose (Bolus/Oral) Medication Total Dosage/Unit 2% XYLOCAINE 50 mL Medications (Bolus/Oral) Medication Time Given Dosage/Unit Administered By Reason 2% XYLOCAINE 08/17/2018 5:39:00 PM 50 mL Kayla Rosa 50 mL 2% XYLOCAINE given in lab by Kayla Rosa in Left shoulder via Subcutaneous. Final Case Assessment Cardiovascular HR Rhythm NIBP Chest Pain 74 sr 81/52 0 Edema Present Skin color Skin None Normal Warm Dry Circulatory - Lower Extremities Color Lower Right Color Lower Left Normal Normal Neurological State Unresponsive Comment: under anesthesia Respiration - General Respiration Rate SpO2 (%) (B/min) 20 95 Comment: lma in place Chronological Log Time Study Chronological Log 17:11:00 NOTE: This patient is undergoing an additional procedure while still in the Cardiac Cath L ab. 17:11:23 2% CHLORHEXIDINE GLUCONATE WASH AND NASAL SWIPE DONE PRIOR TO PROCEDURE. 17:11:54 Anesthesia remains at bedside. Assuming care of patient. Aracelis 17:22:05 Bovie ground pad applied to: 17:22:14 Upper Chest Prepped Times Two. 17:22:22 Sterile dressing applied to groin sites. Sites wnl First Sponge And Instrument Count Done by Jan Tan RT(R). 17:29:29 Hypo's: 3, Sponges: 20, Bovie/scratch: 2 Sutures: 10, Blades: 1, Instruments: 26, Syveck Patches: ~SYVECK PATCH~ verified w dc 08/17/2018 6:04:35 PM Financial #: [id number] 4 of 6 Patient Name: Nitin Haddad Study #: [id number] Initial MD: Kayla Rosa Date of : 1965 Study Date: 08/17/2018 Time Out. Correct patient, procedure, procedure equipment, site and side verified with physicia n present. Time 17:38:44 concurred by MD, individual staff and GREEN BUILDING ARCHITECT. 17:38:59 Case Start 17:39:00 50 mL 2% XYLOCAINE given in lab by Kayla Rosa in Left shoulder via Subcutaneous. 17:43:23 Vascular access was obtained in the Subclav. Vein (Lft. 17:43:27 Wire inserted 17:45:44 A SAFE SHEATH, FR8, 13CM FR 8 was advanced into the Subclav. Vein (Lft using the Modified S israeldinger technique. 17:46:14 A LEAD, PLEXA PRO-MRI DF 65/15 was inserted and positioned in the RV. 17:47:19 Lead placement verified under fluoroscopy 17:47:20 The RV lead impedance and threshold being tested. 17:47:32 The RV lead was sutured to the fascia. 17:48:15 Implant Procedure was performed. 17:48:21 A ICD Implant . (Single) 17:49:14 A DEFIBRILLATOR, INTICA 7 VR-T DX VVE-VDDR was connected and placed in the pocket. 17:49:50 Pocket flushed with antibiotic solution Second Sponge And Instrument Count Done by Jan Tan RT(R). 17:54:47 Hypo's: 3, Sponges: 20, Bovie/scratch: 2 Sutures: ~SUTURE~, Blades: 1, Instruments: ~INSTRU~, Syveck Patches: ~SYVECK PATCH~ verified w DC 17:59:47 The pocket was closed. The Final Sponge And Instrument Count Done by Jan Tan RT(R). 18:00:11 Hypo's: 3, Sponges: 20, Bovie/scratch: 2 Sutures: 10, Blades: 1, Instruments: 26, Syveck Patches: 0 verified by dc 18:00:56 Steri-strips and a sterile dressing applied to site. 18:01:09 Case End (Physician broke scrub) 18:01:52 No case complications noted. 18:01:53 Cine recording checked. 18:01:55 PACU called. Spoke to Denny 18:02:00 Bedside Report will be given. 18:02:01 Implantable Device card placed in patient's chart. 18:02:03 Defibrillator and ground pads removed. Skin intact. Assessment: Final Case, HR=74 BPM, Rhythm=sr, NIBP=81/52 mmhg, Chest Pain=0, Edema=None, Color= Normal, Skin = Warm, Dry Lower Right Extremities: Color=Normal 18:03:12 Lower Left Extremities: Color=Normal Neurological: State=Unresponsive, Comment=under anesthesia Respiration: Resp=20 B/min, SpO2=95 %, Comment=lma in place 18:10:34 Patient moved to stretcher 18:10:59 A sling was placed on the affected arm. 08/17/2018 6:04:35 PM Financial #: [id number] 5 of 6 Patient Name: Nitin Haddad Study #: [id number] Initial MD: Kayla Rosa Date of : 1965 Study Date: 08/17/2018 End Study - Contrast Media Used In Study Contrast Total Opened (mL) Total Used (mL) Total Wasted (mL) Unspecified 0 0 0 End Study - Radiation Exposure Fluoro Time (minutes) 2.7 End Study - Patient Disposition Complications Transferred To Interventional Outcome No Telemetry Bed successful 08/17/2018 6:04:35 PM Financial #: [id number]
--- NOTE | 2018-08-17 18:16 | P.PCNCA ---
Procedure Date: 08/17/18 NYHA Classification: Class III (Moderate) Prevention: Primary PROCEDURE: Single chamber defibrillator implantation and device testing. INDICATIONS: Nitin Haddad is a 53-year-old M with hx of congestive heart failure, AB block, severe bradycardia, ejection fraction 20% was referred for electrophysiology study, atrial flutter ablation and defibrillator implantation for sudden prevention. The risks, the nature and the benefit of the procedure are clearly stated to the patient. Risks include pneumothorax, cardiac perforation, stroke and even . The patient understood and agreed to proceed. PROCEDURE: As written, informed consent was obtained prior to the electrophysiology study, the patient was kept on the table where he was prepped and draped in the sterile fashion. Conscious sedation was initiated and maintained throughout the procedure by anesthesiologist. Once sedation was verified, the left infraclavicular area was anesthetized with 2% Xylocaine. Using modified Seldinger technique, the left subclavian vein was cannulated on one occasion and one guide wire was advanced. Then, using #11 blade scalpel, a 3-cm incision was made two fingerbreadths below left clavicle. This incision was then taken down to the deep fascial layer using Bovie cautery and blunt dissection. Into the inferomedial direction, a device pocket was dissected, then the wire was dissected into the pocket. A 2-0 Vicryl suture was placed around the wires to prevent bleeding. At this point, over the wire, the 9- Turkmen dilator and introducer was advanced. As dilator and wire were removed, an active fixation right ventricular pacing, sensing and defibrillatory lead was advanced. After adequate pacing and sensing thresholds were obtained, the lead was secured in the pocket with #2 Ethibond suture. At that point, the pocket was copiously irrigated with antibiotic solution. The leads were connected to the generator and placed into the pocket. I did proceed with wound closure. The deep fascial layer was approximated with 2-0 Vicryl suture in a continuous fashion. The subcutaneous layer was approximated with 2-0 Vicryl suture in a continuous fashion. The subcuticular layer was approximated with 2-0 Vicryl suture in a continuous fashion. Dermabond adhesive was applied to the wound, followed by a sterile pressure dressing. There was no complication. The patient tolerated procedure. Blood loss minimal. 1. Implanted Hardware: The implanted defibrillator generator is a [employer], model number 218983, serial number [id number]. The right ventricular pacing, sensing and defibrillatory lead is a Biotronik, model number 700769, serial number [id number]. 2. Thresholds: The right ventricular pacing threshold in the bipolar mode was .4 volts at 0.4 milliseconds, lead impedance 725 ohms and R-wave at 9.2 mV. 3. Settings: The device set in VVI 40 defibrillatory portion for two zones, one zone for ventricular tachycardia between 170 and 250 beats per minute. Initial therapy consists of one burst of ATP, one ramp, 81%, 10 pulse, 10 millisecond decremental, followed by 20, then 30 and all subsequent shocks at 40 joules defibrillatory shock, the second zone for ventricular fibrillation above 250 beats per minute, first therapy at 30 and all subsequent shocks at 40 joules defibrillatory shock. CONCLUSIONS: Successful defibrillator implantation. COMMENT AND RECOMMENDATIONS: The patient will be transferred to the telemetry unit, will be observed and when stable can be discharged home.
--- NOTE | 2018-08-17 18:24 | P.PNADD ---
Addendum to Inpatient Note Additional information: attempted to see the pt Pt is off the floor will see later
--- NOTE | 2018-08-17 18:59 | XR ---
EXAM DATE: 08/17/2018 6:52 PM EST AGE/SEX: 53 years / Male INDICATIONS: Status post ICD placement. CLINICAL DATA: This is the patient's initial encounter. Patient reports that signs and symptoms have been present for 1 day and indicates a pain score of Nonresponsive. MEDICAL/SURGICAL HISTORY: Non-responsive. Non-responsive. COMPARISON: No prior exams available for comparison. FINDINGS: Single lead AICD device with lead projecting over the right ventricle. No significant pneumothorax. C ardiac silhouette is enlarged with mild diffuse interstitial prominence. Bony thorax is intact. CONCLUSION: 1. Single lead AICD device projecting over the right ventricle without pneumothorax. 2. Cardiomegaly with mild positive fluid balance. Electronically signed by: Shemar Alas MD 08/17/2018 6:58 PM EST
--- NOTE | 2018-08-17 20:23 | MA ---
cc: Kayla Rosa MD, Bennett P MD Minouei, Mohammadreza MD Seide, Hanscy MD DATE: 08/17/2018 PROCEDURE: Electrophysiology study, CS cannulation, 3-D mapping, radiofrequency ablation of atrial flutter, repeated electrophysiology study on Isuprel infusion. INDICATIONS: Mr. Haddad is a 53-year-old gentleman with morbid obesity, severe cardiomyopathy, episode of severe bradycardia and pauses. On anticoagulation, except for electrophysiology study and device insertion. The risks, the nature and the benefits of the procedure were clearly said to him, which include pneumothorax, cardiac perforation, stroke and even . He understood and agreed to proceed. PROCEDURE: After informed consent was obtained, the patient was brought to the EP lab where he was prepped and draped in the usual sterile fashion. Conscious sedation was initiated and maintained throughout the procedure by the anesthesiologist. Once sedation was verified, the right and left inguinal area was anesthetized with 2% Xylocaine. Using modified Seldinger technique, the left femoral vein was cannulated on 2 occasions with guidewires were advanced over the wire, a 25-[place]ese Hemaquet was advanced and the right femoral vein was cannulated on 2 occasions and 2 guide wires were advanced. Over the wires, three 5-[place] Hemaquets were advanced. Then, under fluoroscopic guidance through the 5 and 6 Hemaquets, three 5-[place] Sivakumar strength curved quadripolar electrophysiology catheters were advanced placed on the His, right atrium, coronary sinus and right ventricular apex. Basic intervals were measured. The patient was in atrial flutter. Flutter cycle length was around 230 milliseconds. Entrainment was performed and was positive. Then, through the 8-[place] Hemaquet, a Cordis [place] F-curve 8 mm mapping and radiofrequency ablation catheter was advanced. Using [place] endocardial solution mapping system, a 3-dimensional configuration of the right atrium was obtained. Then, the catheter was at the critical isthmus, radiofrequency was delivered. During the ablation cycle length prolonged to 260, 280, 320, 330, and then converted to sinus rhythm. Further burn was delivered in the area. Then, pacing lateral to the line showed the activation to the His, converted to . Then, Isuprel infusion was initiated. Atrial pacing protocol was repeated again. No tachyarrhythmia was induced. The pace at the proximal pole of the coronary sinus up to 220 milliseconds cycle length, no tachyarrhythmia was induced. At that point, the procedure was complete. All catheters were removed. The patient table. A single chamber defibrillator will be implanted for sudden prevention and pacing support if necessary. No incident to report. The patient tolerated the procedure. Blood loss minimal. 1. ELECTROCARDIOGRAM: At baseline, the patient was in atrial flutter. Postprocedure, the patient in sinus rhythm. 2. BASIC INTERVAL: Base cycle length was 420 milliseconds to 430 milliseconds. Post-ablation it was around 1080 milliseconds. The AH was around 98 and HV was 162 milliseconds. 3. ATRIAL PACING PROTOCOL: No tachyarrhythmia was induced post-ablation. 4. VENTRICULAR PACING PROTOCOL: No tachyarrhythmia was induced. 5. TACHYARRHYTHMIA: Atrial flutter was mapped and ablated. Ablation was successful. CONCLUSION: Successful complex electrophysiology study, mapping and radiofrequency ablation of atrial flutter. RECOMMENDATIONS: Mr. Haddad has severe bradycardia from time to time with very long pauses. He does need pacing support. Ejection fraction is 20% by last echo. The best approach is to implant a defibrillator for sudden prevention and backup pacing if necessary. ; MD BASIM Berger/adriane/do , 06:37 PM , 06:50 PM
--- NOTE | 2018-08-17 21:16 | ECG ---
Date Performed: 08/17/2018 Time Performed: 18:48:00 PTAGE: 53 years EKG: Sinus rhythm WITH FIRST DEGREE AV BLOCK NONSPECIFIC T-WAVE ABNORMALITY ABNORMAL ECG PREVIOUS TRACING : 08/13/2018 09.45 Compared to previous tracing, SR now present DOCTOR: Amauri Oliver Interpretating Date/Time 08/17/2018 21:15:09
[2018-08-18] MEDS: Piperacil/Tazo 3.375 GM Premix 50 ML IV.SIG SCH ×4 (04:14→21:12)
[2018-08-18 06:46] LABS: Activated Partial Thrombo Time 26.3 sec (23.4-31.7); INR 1.2 Ratio; Prothrombin Time 12.3 sec (9.8-11.6)
[2018-08-18 07:01] LABS: Calcium 8.5 mg/dL (8.5-10.1); Carbon Dioxide 33.7 meq/L (21.0-32.0); Potassium 4.4 meq/L (3.5-5.1)
--- NOTE | 2018-08-18 08:50 | P.PNCA ---
Subjective Interval history: Feeling well other than left chest soreness from defibrillator placement. Creatinine bump and hypotension overnight with addition of metolazone. Medications and Allergies Active Medications: Active Medications Acetaminophen (Tylenol) 650 mg PO Q4H PRN PRN Reason: headache/fever/pain1-5 Hydrocodone Bitart/Acetaminophen ([place] 5/325) 1 tab PO Q6H PRN PRN Reason: pain 6 to 10 Last Admin: 08/14/18 20:44 Dose: 1 tab Al Hydroxide/Mg Hydroxide (Milk Of Magnesia Liq) 30 ml PO Q12H PRN PRN Reason: Mild Constipation Apixaban (Eliquis) 5 mg PO BID [facility] Last Admin: 08/17/18 22:11 Dose: 5 mg Atorvastatin Calcium (Lipitor) 40 mg PO DAILY [facility] Last Admin: 08/17/18 09:02 Dose: 40 mg Bisacodyl (Dulcolax Supp) 10 mg RECTAL DAILY PRN PRN Reason: SEVERE CONSITIPATION Carvedilol (Coreg) 6.25 mg PO BID [facility] Dextrose (D50w Vial) 50 ml IV.PUSH UNSCH PRN PRN Reason: PER HYPOGLYCEMIA PROTOCOL Glucagon (Glucagon Inj) 1 mg OTHER PRN PRN PRN Reason: for Hypoglycemia Protocol Piperacillin/Tazobactam/Dextrose (Zosyn 3.375 Gm Premix) 50 mls @ 100 mls/hr IV.SIG Q6H [facility] Last Infusion: 08/18/18 04:57 Dose: Infused Lactated Ringer's (Lr 1000 Ml Inj) 1,000 mls @ 30 mls/hr IV.SIG .Q24H [facility] Stop: 08/18/18 14:44 Last Admin: 08/17/18 22:15 Dose: Not Given Insulin Aspart (Novolog Insulin Correctional Sugar Inj) 0 unit SQ ACHS [facility]; Protocol Last Admin: 08/17/18 22:13 Dose: 1 unit Lactulose (Lactulose Liq) 30 ml PO DAILY PRN PRN Reason: SEVERE CONSITIPATION Lisinopril (Prinivil) 5 mg PO DAILY [facility] Last Admin: 08/17/18 09:02 Dose: 5 mg Metoprolol Tartrate (Lopressor) 25 mg PO [employer]ILDER [facility] Stop: 08/18/18 14:43 Miscellaneous Information ([facility] Nursing Information) 1 each OTHER UNSCH PRN PRN Reason: SEE LABEL COMMENTS Stop: 08/18/18 18:47 Ondansetron HCl (Zofran Inj) 4 mg IV.PUSH Q6H PRN PRN Reason: NAUSEA OR VOMITING Potassium Chloride (K-Dur) 40 meq PO DAILY [facility] Senna/Docusate Sodium (Magy-Colace) 1 tab PO BID [facility] Last Admin: 08/17/18 22:11 Dose: 1 tab Sennosides (Senokot) 17.2 mg PO Q12H PRN PRN Reason: Moderate Constipation Sodium Chloride (Ns Flush) 2 ml IV.FLUSH BID [facility] Last Admin: 08/17/18 22:14 Dose: 2 ml Sodium Chloride (Ns Flush) 2 ml IV.FLUSH PRN PRN PRN Reason: FLUSH AFTER USING IV ACCESS Allergies Allergy/AdvReac Type Severity Reaction Status Date / Time No Known Allergies Allergy Verified 08/09/18 15:47 Home Medications Medication Instructions Recorded Confirmed Type No Known Home Medications 08/09/18 08/09/18 History Physical Exam Vital signs: Vital Signs 08/17/18 09:00 08/17/18 12:00 08/17/18 15:22 Temperature 97.8 F 97.6 F Pulse Rate 99 H 129 H 135 H Respiratory Rate 18 16 Blood Pressure 111/76 144/85 H Pulse Oximetry 94 L 96 08/17/18 18:26 08/17/18 18:30 08/17/18 18:45 Temperature 98.3 F Pulse Rate 80 79 74 Respiratory Rate 20 18 18 Blood Pressure 97/72 L 99/67 L 87/57 L Pulse Oximetry 96 95 94 L 08/17/18 18:48 08/17/18 19:00 08/17/18 19:15 Temperature Pulse Rate 74 73 74 Respiratory Rate 16 12 Blood Pressure 88/50 L 107/62 Pulse Oximetry 94 L 96 08/17/18 19:30 08/17/18 19:45 08/17/18 20:00 Temperature 97.9 F 98.4 F Pulse Rate 75 75 79 Respiratory Rate 14 14 18 Blood Pressure 108/61 109/65 130/68 Pulse Oximetry 95 95 96 08/17/18 21:52 08/18/18 00:00 08/18/18 04:00 Temperature 98.8 F 98.5 F Pulse Rate 87 81 Respiratory Rate 18 16 Blood Pressure 108/70 109/70 Pulse Oximetry 97 100 95 08/18/18 06:10 Temperature Pulse Rate 77 Respiratory Rate Blood Pressure Pulse Oximetry Intake & Output 08/17/18 08/18/18 08/18/18 18:59 06:59 18:59 Intake Total 50 / 50 790 / 790 Output Total 2099 Balance 50 / 50 -1310 / -1310 Weight 339 lb 4.662 oz Intake: IV 50 / 50 150 / 150 Zosyn 3.375 GM Premix 50 ML @ 50 / 50 150 / 150 100 mls/hr IV.SIG Q6H [facility] Rx#: [id number] Oral 640 / 640 Output: Urine 2099 Narrative: GENERAL: Well-developed well-nourished. Morbidly obese. In no acute distress. NECK: No carotid bruits. No JVD. CARDIOVASCULAR: Regular rate and rhythm. No murmur appreciated. Clean pressure dressing in place left chest wall. RESPIRATORY: No accessory muscle use. Clear to auscultation. Breath sounds equal bilaterally. MUSCULOSKELETAL: Bilateral shins with Trevin wrap. NEUROLOGICAL: Awake and alert. Normal speech. Results 08/12/18 07:09 08/18/18 06:01 Coagulation 08/18/18 Range/Units 06:01 PT 12.3 H (9.8-11.6) sec APTT 26.3 (23.4-31.7) sec Comprehensive Metabolic Panel 08/17/18 08/18/18 Range/Units 04:35 06:01 Sodium 138 136 (136-145) meq/L Potassium 3.5 4.4 D (3.5-5.1) meq/L Chloride 102 98 (98-107) meq/L Carbon Dioxide 29.1 33.7 H (21.0-32.0) meq/L BUN 13 15 (7-18) mg/dL Creatinine 1.03 1.34 H (0.60-1.30) mg/dL Calcium 8.4 L 8.5 (8.5-10.1) mg/dL Intake and Output 08/17/18 08/18/18 08/18/18 22:59 06:59 14:59 Intake Total 0 / 0 790 / 790 Output Total 2099 Balance 0 / 0 -1310 / -1310 Intake: IV 0 / 0 150 / 150 Zosyn 3.375 GM Premix 50 ML @ 0 / 0 150 / 150 100 mls/hr IV.SIG Q6H [facility] Rx#: [id number] Oral 640 / 640 Output: Urine 2100 / 2100 Other: Weight 339 lb 4.662 oz - Imaging and Cardiology Imaging: Impressions Chest X-Ray 08/17/18 00:00 CONCLUSION: 1. Single lead AICD device projecting over the right ventricle without pneumothorax. 2. Cardiomegaly with mild positive fluid balance. 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 BP will not allow titration of lisinopril at this time. continue Lisinopril 5mg, atorvastatin 40mg Coreg was on hold due to significant pauses, can now resume at 6.25 twice daily AICD placed by Dr. Rosa 08/17/18, follow-up with Dr. Rosa in 2-weeks -Systolic CHF Now more euvolemic with creatinine bump Continue diuresis with Lasix, changed to 40 mg p.o. twice daily DC metolazone Continue potassium 40 mEq daily -Paroxysmal atrial flutter -Sick Sinus Syndrome with prolonged pauses up to 6.8 sec in duration while in Atrial flutter Started on Eliquis 5 mg BID for elevated CHADS2-VASc score of 3 Underwent successful atrial flutter ablation with Dr. Rosa 08/17/18 Discharge planning from cardiology perspective. We will sign off at this time, please feel free to call with any questions. Cardiac medications at discharge: Eliquis 5 mg twice daily Lisinopril 5 mg daily Carvedilol 6.25 mg twice daily Furosemide 40 mg twice daily Potassium chloride 40 mEq daily Atorvastatin 40 mg nightly Discussed Condition With: Patient seen with Dr. Mayberry
[2018-08-18] MEDS: Lisinopril 5 MG Tablet PO SCH (09:58)
[2018-08-18] MEDS: Carvedilol 6.25 MG Tablet PO SCH ×2 (09:58→20:55)
[2018-08-18] MEDS: Senna/Docusate Sodium 8.6/50 MG Tablet PO SCH ×2 (09:58→21:13)
[2018-08-18] MEDS: Insulin NovoLOG Aspart Correctional Sugar Inj SQ SCH ×4 (10:59→21:19)
--- NOTE | 2018-08-18 11:36 | P.DS ---
DS: Providers Date of admission: 08/10/18 12:21 Primary care physician: No Primary Care Physician Consults: 08/10/18 09:54 Consult to Urology Routine Consulting Provider: Dionte Sharma Reason for Consultation: scrotal edema/cellulitis, dysuria, recent injury Notified:: Office Spoke with:: MAGALI Date Notified:: 08/10/18 Time Notified:: 10:06 Ordering Provider: LATRICE 08/11/18 07:47 Consult to Cardiology Routine Consulting Provider: Jeff Burt Does the patient have a Pharmaceutical Officer who follows them?: No Preferred Pathology Manager:: Cras Physician Reason for Consultation: new diagnosis of CHF EF 25% with concern for vegetation on aortic valve, consider CHRISTIAN Notified:: Service Spoke with:: Cindy Date Notified:: 08/11/18 Time Notified:: 08:08 Ordering Provider: LATRICE 08/11/18 12:00 Consult to Infectious Diseases Routine Consulting Provider: Emily Mcdermott Reason for Consultation: RLE cellulitis, possible scrotal cellulitis, now with questionable vegetation on aortic valve Notified:: Service Spoke with:: HIEN Date Notified:: 08/11/18 Time Notified:: 12:09 Ordering Provider: LATRICE 08/11/18 17:07 Consult to Podiatry Routine Consulting Provider: Symone Zheng Reason for Consultation: Foot ulcers, most prominent at right first toe Notified:: Service Spoke with:: Petros Date Notified:: 08/11/18 Time Notified:: 21:32 Comments:: Rec'd call from Dr. Manjarrez and she notes that consults need to go through call center after hours in order to be assigned correctly. Ordering Provider: KATRINA 08/16/18 08:26 Consult to Cardiology Routine Consulting Provider: Kayla Rosa Does the patient have a Pharmaceutical Officer who follows them?: Yes Preferred Pathology Manager:: Kayla Rosa Reason for Consultation: Electrophysiology consult to Dr. Rosa. Needs pacemaker and ICD. Notified:: Office Spoke with:: Alondra Date Notified:: 08/16/18 Time Notified:: 08:29 Ordering Provider: LUCINDA Brief History from admission: 53-yo m with no previous medical hx, has not had any doctor for ~25 years. He presented to ER with worsening swelling and redness of RLE. Reports he had a blister on the tip rt great toe a month ago which he lanced, and he removed the nail as well. since then he has been having pain and swelling of rt leg. He developed another blister on dorsum of rt foot which he lanced. 2 weeks ago he noted small pimple like lesions on his rt leg and these progressively increased to involve his thigh. His rt leg redness/swelling worsened. He denies fevers/chills. He took Cephalexin pills from his mother a few days ago but did not help. ROS significant for painless scrotal swelling which he says happened a few months back after falling off his bed. rest of ROS is negative. On presentation to ER, patient noted to be hypertensive, labs-mild leucocytosis 13, glucose mildly elevated. Xray rt foot unremarkable. dopplers negative for DVT. Patient received Vanc/Zosyn. DS: Summary Mr. Haddad is a 53-year old male. Initially he came to the hospital secondary to acute bilateral lower extremity cellulitis. This was noted to be related to bilateral lower extremity edema. Cardiac workup showed he had an ejection fraction of 20-25%. Implanted defibrillator has been placed during this visit. The patient was treated with antibiotics, Unasyn, during the stay. He has had graduating improvement in the lower extremities. Podiatry is recommending bilateral Unna boots. Additionally he will continue needing wound care as an outpatient and wound care clinic follow-up visits. At this point has been cleared by cardiology for discharge. He is medically cleared and stable for discharge home today. Time Spent with Patient Total time spent providing and/or coordinating discharge services: Quality: VTE Deep Vein Thrombosis/Pulmonary Embolism Present on Admission: No Results Procedures completed during hospitalization: 08/12/18 - Transesophageal Echocardiogram: Mildly dilated left ventricle. The left ventricular systolic function is severely reduced with an estimated ejection fraction in the range of 20-25%. Labs on day of discharge: Labs from last 24 hours 08/18/18 08/18/18 08/18/18 08:05 06:01 06:01 PT 12.3 H INR 1.2 APTT 26.3 Sodium 136 Potassium 4.4 D Chloride 98 Carbon Dioxide 33.7 H Anion Gap 4 L BUN 15 Creatinine 1.34 H Estimated GFR 56 L POC Glucose 117 H Random Glucose 112 H Calcium 8.5 Magnesium 2.0 08/17/18 08/17/18 08/17/18 20:38 18:50 11:49 PT INR APTT Sodium Potassium Chloride Carbon Dioxide Anion Gap BUN Creatinine Estimated GFR POC Glucose 163 H 122 H 116 H Random Glucose Calcium Magnesium Impressions ITS Impressions Foot X-Ray 08/09/18 15:19 CONCLUSION: 1. Achilles and plantar calcaneal spurring. 2. No acute fracture or dislocation. 3. Mild arthritic changes involving the ankle and midfoot. Venous Doppler Study 08/09/18 15:20 CONCLUSION: 1. No DVT identified. Scrotum Ultrasound 08/09/18 17:20 CONCLUSION: 1. Diffuse extensive scrotal wall thickening, likely infectious. 2. Normal-appearing testicles. 3. Small bilateral hydroceles Myocardial Perfusion Scan Nuc Med 08/11/18 09:03 CONCLUSION: 1. No reversible perfusion abnormalities. 2. Severe LV chamber dilatation and dysfunction Extremity Arterial Study 08/12/18 00:00 CONCLUSION: 1. Normal ankle brachial indexes. Chest X-Ray 08/17/18 00:00 CONCLUSION: 1. Single lead AICD device projecting over the right ventricle without pneumothorax. 2. Cardiomegaly with mild positive fluid balance. Discharge Plan Discharge Disposition Patient Disposition: /Home Health Service Discharge Condition Condition: Stable Discharge Order Discharge Orders: Discharge Order (Routine); Ordered 08/18/18 Ordered By: Moises Georges Discharge Details Anticipated Discharge Date: 08/18/18 Discharge Comment: Needs: Bilateral unaboots, wound care appointment/follow-up , medication assistance Physicians Team Primary Care Provider: Primary Care Hannah,Adwoa Attending Provider: Moises Georges Other Providers: Dionte Sharma ; Jeff Burt ; Emily Mcdermott ; Symone Zheng ; Kayla Rosa Rxs /Orders / Referrals /Forms Prescriptions: New atorvastatin 40 mg Tablet 40 mg PO DAILY Qty: 30 RF: 0 aspirin 81 mg Tablet,Delayed Release (Dr/Ec) 81 mg PO DAILY Qty: 30 RF: 0 apixaban [Eliquis] 5 mg Tablet 5 mg PO BID Qty: 60 RF: 0 furosemide [Lasix] 40 mg Tablet 40 mg PO DAILY Qty: 30 RF: 0 lisinopril 5 mg Tablet 5 mg PO DAILY Qty: 30 RF: 0 carvedilol [Coreg] 6.25 mg Tablet 6.25 mg PO BID Qty: 60 RF: 0 hydrocodone-acetaminophen 5-325 mg Tablet 1 tab PO Q6H PRN (Reason: pain 6 to 10) Qty: 20 RF: 0 potassium chloride 20 mEq Tablet,Er Particles/Crystals 40 meq PO DAILY Qty: 60 RF: 0 No Action No Known Home Medications RF: 0 Ambulatory Orders / Order Sets / DME: Basic Metabolic Panel (Routine) Timeframe: 1 Week Location: Determined by Patient Ordered By: Henry Fleming Referrals: Kayla Rosa MD [Physician] - 09/08/18 12:00 am (3 week follow up) Symone Zheng DPM [Physician] - See Instructions (1-2 weeks) Miguelina Lezama MD [FAMILY MEDICINE] - 08/25/18 12:00 am (Follow up in 1 week at wound care clinic) Primary Care Adwoa Yonug [Primary Care Provider] - See Instructions (1wk) Jeff Burt MD [Physician] - See Instructions (1-2wk) Post Discharge Care Plan Care Plan Goals: Your Health Problems: Goals to Promote Your Health: * To prevent worsening of your condition * To maintain your health at the optimal level Directions to Meet Your Goals: * Take your medications as prescribed * Follow your dietary instruction * Follow activity as directed * Keep your appointments as scheduled * Take your immunizations and boosters as scheduled * If your symptoms worsen call your PCP * If no PCP go to Urgent Care or Emergency Room Smoking is dangerous to your health. Avoid second hand smoke. You may reach the 24-hour crisis hotline for domestic abuse at . Status ED Status: Left Department
--- NOTE | 2018-08-18 17:02 | ECG ---
Date Performed: 08/18/2018 Time Performed: 04:50:48 PTAGE: 53 years EKG: Sinus rhythm Consider left atrial abnormality Delayed R wave progression Abnormal ECG PREVIOUS TRACING : 08/17/2018 18.48 Since the previous tracing, no significant change noted DOCTOR: Amauri Oliver Interpretating Date/Time 08/18/2018 17:00:43
[2018-08-19] MEDS: Piperacil/Tazo 3.375 GM Premix 50 ML IV.SIG SCH ×2 (04:34→09:59)
[2018-08-19 04:49] VITALS: RESP 18; O2SAT 98
[2018-08-19 05:11] LABS: Calcium 8.3 mg/dL (8.5-10.1); Carbon Dioxide 30.1 meq/L (21.0-32.0); Magnesium 1.9 mg/dL (1.5-2.5); Potassium 3.4 meq/L (3.5-5.1)
[2018-08-19 06:27] VITALS: PULSE 86
[2018-08-19] MEDS: Senna/Docusate Sodium 8.6/50 MG Tablet PO SCH (08:07)
[2018-08-19] MEDS: Lisinopril 5 MG Tablet PO SCH (08:07)
[2018-08-19] MEDS: Carvedilol 6.25 MG Tablet PO SCH (08:08)
[2018-08-19 09:23] VITALS: BP 151/99; TEMP 97.6
[2018-08-19] MEDS: Insulin NovoLOG Aspart Correctional Sugar Inj SQ SCH (09:39)
--- NOTE | 2018-08-19 10:43 | P.DCO ---
Home Health Nursing Order: Medical education, Signs/symptoms of disease process, Wound care and dressing changes and Nursing assessment with vital signs Instructions: Gauze covering, double layered wrap. Change every other day. May downgrade dressings to a light covering, if edema resolves and wounds are dry. Case Management Consult Case Management Consult-Home Health: Yes I have seen patient Nitin Haddad on 08/19/18. My clinical findings support the need for the requested home health care services because: I certify that my clinical findings support that this patient is homebound because:
--- NOTE | 2018-08-19 10:45 | P.DCO ---
Home Health Nursing Order: Medical education, Signs/symptoms of disease process, Wound care and dressing changes and Nursing assessment with vital signs Instructions: Gauze dressing of wounds with double layer of wraps. May downgrade to a light covering if edema of legs resolves and wounds are dry. Case Management Consult Case Management Consult-Home Health: Yes I have seen patient Nitin Haddad on 08/19/18. My clinical findings support the need for the requested home health care services because: Limited mobility due to disease progression, Deconditioned with increased weakness and Infection with risk of complications I certify that my clinical findings support that this patient is homebound because: Unsteady gait/balance, Unsafe to leave home unassisted and Unable to use public transportation
== END 2018-08-19 11:30 | disposition home health service (06) ==
LOC: NEPE 11:56 → NEDA 11:56 → NEPHCDU 21:44 → H7ONC 08-12 18:00 → N07 08-13 12:53 → HCIS 08-17 16:44
PROVIDERS: ADMIT Hospitalist; ATTEND Hospitalist